=== PATIENT | male | born 1955 | race Native Hawaiian/Other Pacific Islander ===

== ENCOUNTER 2016-05-18 15:57 | Inpatient (IN) | payer OTHER, MEDICARE ==
[2016-05-18] VITALS (7 sets, daily range): BP systolic 117–150; BP diastolic 68–85; PULSE 56–65; RESP 16–18; TEMP 97.8–98.4; O2SAT 97–100
[~2016-05-18] VITALS: Ht 172.7 cm; Wt 91.2 kg
[~2016-05-18 15:57] MED LIST: ATOR80TA PO; CELE200C PO; CLOP75TA PO; CYCL-36 PO; DICL1GEL TOP; DULO30 PO; ENAL5TAB PO; FINA5TAB77 PO; HYDR-3533 PO; ISOS30 PO; METO25 PO; NITR.4 SL; TAMS0.4C67 PO; ZOLP1TAB32 PO
[2016-05-18] MEDS ORDERED: SODIUM CHLORIDE 0.9% FLUSH 5 ML FLUSH IVF PRN (16:30)
[2016-05-18] MEDS ORDERED: MORPHINE SULFATE 4 MG/ML INJ IV ONE (16:30)
[2016-05-18] MEDS ORDERED: FINA5TAB2 PO (16:38)
[2016-05-18] MEDS ORDERED: CLOP75TA PO (16:38)
[2016-05-18] MEDS ORDERED: ISOS30TA3 PO (16:38)
[2016-05-18] MEDS ORDERED: ATOR1TAB18 PO (16:38)
[2016-05-18] MEDS ORDERED: ASPI1TAB91 PO (16:38)
[2016-05-18] MEDS ORDERED: METO25TA3 PO (16:38)
[2016-05-18] MEDS ORDERED: CYCL1TAB29 PO (16:38)
[2016-05-18] MEDS ORDERED: STRA80CA PO (16:38)
[2016-05-18] MEDS ORDERED: TAMO10TA6 PO (16:38)
[2016-05-18] MEDS ORDERED: ENAL5TAB PO (16:38)
[2016-05-18] MEDS ORDERED: DULO1CAP2 PO (16:38)
[2016-05-18] MEDS ORDERED: TAMS0.4C4 PO (16:38)
[2016-05-18 17:01] LABS: AUTOMATED NEUTROPHIL # 9.6 TH/MM3 (1.8-7.7); BASOPHIL % 0.4 % (0.0-2.0); EOSINOPHIL # 0.1 TH/MM3 (0-0.4); EOSINOPHIL % 0.9 % (0.0-4.0); HEMATOCRIT 39.5 % (39.0-51.0); HEMO FLAGS DIFF FINAL; LYMPH % 12.7 % (9.0-44.0); LYMPHOCYTE # 1.5 TH/MM3 (1.0-4.8); MEAN CELL VOLUME 82.1 FL (80.0-100.0); MEAN CORPUSCULAR HEMOGLOBIN 26.2 PG (27.0-34.0); MONO % 5.6 % (0.0-8.0); NEUT % 80.4 % (16.0-70.0); PLATELET COUNT 179 TH/MM3 (150-450); RED BLOOD COUNT 4.82 MIL/MM3 (4.50-5.90); RED CELL DISTRIBUTION WIDTH 14.6 % (11.6-17.2)
--- NOTE | 2016-05-18 17:10 | RADRPT ---
EXAM DATE/TIME: 05/18/2016 16:50 [facility] COMPARISON: No previous studies available for comparison. INDICATIONS : Chest pain after fall off of a ladder. MEDICAL HISTORY : None. SURGICAL HISTORY : None. ENCOUNTER: Initial ACUITY: 1 day PAIN SCORE: 7/10 LOCATION: Bilateral chest FINDINGS: A single view of the chest demonstrates the lungs to be symmetrically aerated without evidence of mas s, infiltrate or effusion. The cardiomediastinal contours are unremarkable. Osseous structures are intact. CONCLUSION: No acute disease. Maurice Walker MD on May 18, 2016 at 17:08 Board Certified Radiologist. This report was verified electronically.
--- NOTE | 2016-05-18 17:11 | RADRPT ---
EXAM DATE/TIME: 05/18/2016 16:47 [facility] COMPARISON: No previous studies available for comparison. INDICATIONS : Pelvic pain after fall off of a ladder. MEDICAL HISTORY : None. SURGICAL HISTORY : None. ENCOUNTER: Initial ACUITY: 1 day PAIN SCORE: 8/10 LOCATION: Bilateral pelvis FINDINGS: A single frontal view of the pelvis demonstrates no evidence of fracture. The bony pelvic ring is in tact. Bony mineralization is normal. The soft tissues are intact. CONCLUSION: Unremarkable examination of the pelvis. Maurice Walker MD on May 18, 2016 at 17:09 Board Certified Radiologist. This report was verified electronically.
--- NOTE | 2016-05-18 17:12 | RADRPT ---
EXAM DATE/TIME: 05/18/2016 16:41 [facility] COMPARISON: No previous studies available for comparison. INDICATIONS : Right hand pain after fall off of a ladder. MEDICAL HISTORY : None. SURGICAL HISTORY : None. ENCOUNTER: Initial ACUITY: 1 day PAIN SCORE: 7/10 LOCATION: Right hand FINDINGS: There is no evidence of fracture or dislocation. Mineralization is normal. Mild arthritic changes pre sent. CONCLUSION: No acute bony injury Maurice Walker MD on May 18, 2016 at 17:09 Board Certified Radiologist. This report was verified electronically.
--- NOTE | 2016-05-18 17:13 | RADRPT ---
EXAM DATE/TIME: 05/18/2016 16:48 [facility] COMPARISON: No previous studies available for comparison. INDICATIONS : Left knee pain after fall off of a ladder. MEDICAL HISTORY : None. SURGICAL HISTORY : None. ENCOUNTER: Initial ACUITY: 1 day PAIN SCORE: 7/10 LOCATION: Left knee FINDINGS: Four view examination of the left knee demonstrates no evidence of fracture or dislocation. Bony min eralization is normal. The articular surfaces are intact. The suprapatellar soft tissues have a nor mal configuration. CONCLUSION: Unremarkable examination of the left knee. Maurice Walker MD on May 18, 2016 at 17:11 Board Certified Radiologist. This report was verified electronically.
--- NOTE | 2016-05-18 17:14 | RADRPT ---
EXAM DATE/TIME: 05/18/2016 16:50 [facility] COMPARISON: No previous studies available for comparison. INDICATIONS : Right clavicle pain after fall off of a ladder. MEDICAL HISTORY : None. SURGICAL HISTORY : None. ENCOUNTER: Initial ACUITY: 1 day PAIN SCORE: 10/10 LOCATION: Right clavicle FINDINGS: There is a mildly displaced mid shaft right clavicle fracture. Mild degenerative arthritic change in the glenohumeral joint. The visualized adjacent ribs are intact. CONCLUSION: Mildly displaced right clavicle fracture Maurice Walker MD on May 18, 2016 at 17:12 Board Certified Radiologist. This report was verified electronically.
[2016-05-18 17:15] LABS: BICARBONATE 24.4 MEQ/L (21.0-32.0); POTASSIUM 4.6 MEQ/L (3.5-5.1)
[2016-05-18 17:18] LABS: APTT (PATIENT) 21.1 SEC (24.3-30.1); PROTHROMBIN TIME - PATIENT 10.5 SEC (9.8-11.6)
--- NOTE | 2016-05-18 17:20 | PD ---
HPI Chief Complaint: Fall Time Seen by Provider: 16:21 Travel History International Travel<30 days: No Contact w/Intl Traveler<30days: No Traveled to known affect area: No History of Present Illness HPI 61 y/o male presents after he fell off a ladder when a branch hit him in the chest. He is having pain to his right shoulder, low back and chest wall. He states he's not sure if he blacked out. He does take Plavix and aspirin. He states he's on this for a cardiac stent. Quality pain is sharp. Severity is severe. Pain is worse with movement. I gave him an order for 4 mg of morphine in the ambulance over the radio and he still has not had significant improvement in his pain. He denies other concurrent complaints. PFSH Past Medical History Arthritis: Yes (RHEUMATOID ARTHRITIS (ARMS)) Cardiac Catheterization: Yes (stents x2) Cardiovascular Problems: Yes High Cholesterol: Yes Diminished Hearing: No Hypertension: Yes Immunizations Current: Yes Myocardial Infarction: Yes Triglycerides - High: Yes Influenza Vaccination: No Social History Alcohol Use: No Tobacco Use: No Substance Use: No Allergies-Medications (Allergen,Severity, Reaction): Coded Allergies: No Known Allergies (Unverified , 05/18/16) Reported Meds & Prescriptions Reported Meds & Active Scripts Active Reported Flexeril (Cyclobenzaprine HCl) 10 Mg Tab 10 Mg PO TID Duloxetine DR (Duloxetine HCl) 30 Mg Capdr 30 Mg PO DAILY Aspirin Adult Low Strength (Aspirin) 81 Mg Tabdr 81 Mg PO DAILY Enalapril (Enalapril Maleate) 5 Mg Tab 5 Mg PO DAILY Isosorbide Mononitrate ER (Isosorbide Mononitrate) 30 Mg Rachel 30 Mg PO DAILY Clopidogrel (Clopidogrel Bisulfate) 75 Mg Tab 75 Mg PO DAILY Tamoxifen (Tamoxifen Citrate) 10 Mg Tab 10 Mg PO BID Atorvastatin (Atorvastatin Calcium) 80 Mg Tab 80 Mg PO HS Metoprolol Tartrate 25 Mg Tab 25 Mg PO BID Finasteride 5 Mg Tab 5 Mg PO DAILY Do not crush. Strattera (Atomoxetine) 80 Mg Cap 80 Mg PO DAILY Tamsulosin (Tamsulosin HCl) 0.4 Mg Cap 0.4 Mg PO HS Review of Systems Except as stated in HPI: all other systems reviewed are Neg Physical Exam Narrative General: 61 y/o patient in no apparent distress Skin: trauma noted to right lateral clavicle with swelling Eyes:pupils equal NECK: c-collar in place Cardiovascular: Regular rate and rhythm Respiratory: normal respiratory effort noted, clear to auscultation bilaterally Abdomen: soft, nontender, nondistended Back: No step-offs, midline spine nontender with logroll Extremities: no pain over main joints Neuro: awake, alert, sensation and motor grossly intact Data Data Last Documented VS Vital Signs Date Time Temp Pulse Resp B/P Pulse Ox O2 Delivery O2 Flow Rate FiO2 05/18/16 18:44 65 18 117/68 100 Room Air 05/18/16 16:23 97.8 Orders Basic Metabolic Panel (Bmp) (05/18/16 16:21) Complete Blood Count With Diff (05/18/16 16:21) Prothrombin Time / Inr (Pt) (05/18/16 16:21) Act Partial Throm Time (Ptt) (05/18/16 16:21) Type And Screen (05/18/16 16:21) Chest, Single Ap (05/18/16 16:21) Pelvis, Ap Only (Routine) (05/18/16 16:21) Ct Brain W/O Iv Contrast(Rout) (05/18/16 16:21) Ct Cerv Spine W/O Contrast (05/18/16 16:21) Ct Abd/Pel W Iv Contrast(Rout) (05/18/16 16:21) Ct Thorax/ Chest W Iv Contrast (05/18/16 16:21) Ct Thor Spine W/O Contrast (05/18/16 16:21) Ct Lumb Spine W/O Contrast (05/18/16 16:21) Iv Access Insert/Monitor (05/18/16 16:21) Ecg Monitoring (05/18/16 16:21) Oximetry (05/18/16 16:21) Morphine Inj (Morphine Inj) (05/18/16 16:30) Sodium Chloride 0.9% Flush (Ns Flush) (05/18/16 16:30) Clavicle (05/18/16 ) Hand, Complete ([id number]) (05/18/16 ) Knee, Complete (4vws) (05/18/16 ) Electrocardiogram (05/18/16 16:17) Morphine Inj (Morphine Inj) (05/18/16 17:45) Iohexol 350 Inj (Omnipaque 350 Inj) (05/18/16 18:31) Admit Order (Ed Use Only) (05/18/16 18:47) Labs Laboratory Tests Test 05/18/16 16:40 White Blood Count 12.0 TH/MM3 Red Blood Count 4.82 MIL/MM3 Hemoglobin 12.6 GM/DL Hematocrit 39.5 % Mean Corpuscular Volume 82.1 FL Mean Corpuscular Hemoglobin 26.2 PG Mean Corpuscular Hemoglobin 32.0 % Concent Red Cell Distribution Width 14.6 % Platelet Count 179 TH/MM3 Mean Platelet Volume 8.2 FL Neutrophils (%) (Auto) 80.4 % Lymphocytes (%) (Auto) 12.7 % Monocytes (%) (Auto) 5.6 % Eosinophils (%) (Auto) 0.9 % Basophils (%) (Auto) 0.4 % Neutrophils # (Auto) 9.6 TH/MM3 Lymphocytes # (Auto) 1.5 TH/MM3 Monocytes # (Auto) 0.7 TH/MM3 Eosinophils # (Auto) 0.1 TH/MM3 Basophils # (Auto) 0.0 TH/MM3 CBC Comment DIFF FINAL Differential Comment Prothrombin Time 10.5 SEC Prothromb Time International 1.0 RATIO Ratio Activated Partial 21.1 SEC Thromboplast Time Sodium Level 141 MEQ/L Potassium Level 4.6 MEQ/L Chloride Level 108 MEQ/L Carbon Dioxide Level 24.4 MEQ/L Anion Gap 9 MEQ/L Blood Urea Nitrogen 20 MG/DL Creatinine 0.96 MG/DL Estimat Glomerular Filtration 79 ML/MIN Rate Random Glucose 91 MG/DL Calcium Level 8.4 MG/DL Phosphorus Level 2.7 MG/DL Blood Type A POSITIVE Antibody Screen NEGATIVE Blood Bank Comment [facility] Medical Decision Making Medical Screen Exam Complete: Yes Emergency Medical Condition: Yes Interpretation(s) CBC & BMP Diagram 05/18/16 16:40 Last 24 hours Impressions Thoracic Spine CT 05/18/161620 Signed Impressions: Service Date/Time: Wednesday, May 18, 2016 18:16 - CONCLUSION: 1. No thoracic spine fracture. 2. There are scattered bilateral rib fractures. Ángel Bush MD Pelvis X-Ray 05/18/161620 Signed Impressions: Service Date/Time: Wednesday, May 18, 2016 16:47 - CONCLUSION: Unremarkable examination of the pelvis. Maurice Walker MD Lumbar Spine CT 05/18/161620 Signed Impressions: Service Date/Time: Wednesday, May 18, 2016 18:16 - CONCLUSION: 1. No compression fracture or subluxation. 2. Fractures of right L2 and L3 transverse processes and possibly L1 as well. Ángel Bush MD Head CT 05/18/161620 Signed Impressions: Service Date/Time: Wednesday, May 18, 2016 18:05 - CONCLUSION: Normal examination. Ángel Bush MD Chest X-Ray 05/18/161620 Signed Impressions: Service Date/Time: Wednesday, May 18, 2016 16:50 - CONCLUSION: No acute disease. Maurice Walker MD Chest CT 05/18/161620 Signed Impressions: Service Date/Time: Wednesday, May 18, 2016 18:16 - CONCLUSION: 1. Multiple rib fractures bilaterally more numerous on the right. 2. Right clavicle fracture. 3. No pneumo or hemothorax. Ángel Bush MD Cervical Spine CT 05/18/161620 Signed Impressions: Service Date/Time: Wednesday, May 18, 2016 18:05 - CONCLUSION: 1. No compression fracture or subluxation. 2. Fracture of the right first rib and second left rib Ángel Bush MD Abdomen/Pelvis CT 05/18/161620 Signed Impressions: Service Date/Time: Wednesday, May 18, 2016 18:16 - CONCLUSION: 1. No abdominal visceral injury. 2. Fractures of the right L2 and L3 transverse processes. Ángel Bush MD Knee X-Ray 05/18/16 0000 Signed Impressions: Service Date/Time: Wednesday, May 18, 2016 16:48 - CONCLUSION: Unremarkable examination of the left knee. Maurice Walker MD Hand X-Ray 05/18/16 0000 Signed Impressions: Service Date/Time: Wednesday, May 18, 2016 16:41 - CONCLUSION: No acute bony injury Maurice Walker MD Clavicle X-Ray 05/18/16 0000 Signed Impressions: Service Date/Time: Wednesday, May 18, 2016 16:50 - CONCLUSION: Mildly displaced right clavicle fracture Maurice Walker MD Differential Diagnosis Fracture, bleed, strain, pneumothorax Narrative Course Will check trauma imaging and dose with morphine and reevaluate Pain still uncontrolled will repeat morphine while awaiting CT Patient updated about multiple fractures and agrees to close admission in ICU Physician Communication Physician Communication dr villa agrees to icu admit Diagnosis Primary Impression: Closed rib fracture Qualified Code: S22.43XA - Closed fracture of multiple ribs of both sides, initial encounter Additional Impressions: Lumbar transverse process fracture Qualified Code: S32.008A - Lumbar transverse process fracture, closed, initial encounter Right clavicle fracture Qualified Code: S42.021A - Closed displaced fracture of shaft of right clavicle, initial encounter Admitting Information Admitting Physician Requests: Admit Doreen Gomez MD May 18, 2016 17:20
[2016-05-18] MEDS ORDERED: MORPHINE SULFATE 4 MG/ML INJ IV PUSH ONE (17:45)
--- NOTE | 2016-05-18 18:19 | RADRPT ---
EXAM DATE/TIME: 05/18/2016 18:05 [facility] COMPARISON: CT BRAIN W/O CONTRAST, December 31, 2014, 21:55. INDICATIONS : Trauma. Fall. RADIATION DOSE: 59.44 CTDIvol (mGy) MEDICAL HISTORY : Cardiovascular disease. SURGICAL HISTORY : None. ENCOUNTER: Initial ACUITY: 1 day PAIN SCALE: 10/10 LOCATION: cranial TECHNIQUE: Multiple contiguous axial images were obtained of the head. Using automated exposure control and adj ustment of the mA and/or kV according to patient size, radiation dose was kept as low as reasonably a chievable to obtain optimal diagnostic quality images. FINDINGS: CEREBRUM: The ventricles are normal for age. No evidence of midline shift, mass lesion, hemorrhage or acute in farction. No extra-axial fluid collections are seen. POSTERIOR FOSSA: The cerebellum and brainstem are intact. The 4th ventricle is midline. The cerebellopontine angle i s unremarkable. EXTRACRANIAL: The visualized portion of the orbits is intact. SKULL: The calvaria is intact. No evidence of skull fracture. CONCLUSION: Normal examination. Ángel Bush MD on May 18, 2016 at 18:16 Board Certified Radiologist. This report was verified electronically.
[2016-05-18] MEDS ORDERED: IOHEXOL 350 MG/ML 10 ML VIAL (for RAD DIAG) IV ONE (18:31)
--- NOTE | 2016-05-18 18:31 | RADRPT ---
EXAM DATE/TIME: 05/18/2016 18:05 [facility] COMPARISON: No previous studies available for comparison. INDICATIONS : Trauma. Fall. Neck pain. RADIATION DOSE: 26.83 CTDIvol (mGy) MEDICAL HISTORY : Cardiovascular disease. SURGICAL HISTORY : None. ENCOUNTER: Initial ACUITY: 1 day PAIN SCALE: 10/10 LOCATION: neck TECHNIQUE: Volumetric scanning of the cervical spine was performed. Multiplanar reconstructions in the sagittal, coronal and oblique axial planes were performed. Using automated exposure control and adjustment o f the mA and/or kV according to patient size, radiation dose was kept as low as reasonably achievable to obtain optimal diagnostic quality images. FINDINGS: VERTEBRAE: Normal vertebral body height. ALIGNMENT: No evidence of subluxation. Facets are well aligned. Fracture of the right first rib and second left rib. CONCLUSION: 1. No compression fracture or subluxation. 2. Fracture of the right first rib and second left rib Ángel Bush MD on May 18, 2016 at 18:26 Board Certified Radiologist. This report was verified electronically.
--- NOTE | 2016-05-18 18:36 | RADRPT ---
EXAM DATE/TIME: 05/18/2016 18:16 [facility] COMPARISON: No previous studies available for comparison. INDICATIONS : Trauma. Fall. IV CONTRAST: 100 cc Omnipaque 350 (iohexol) IV ; Cumulative dose for multiple exams. ORAL CONTRAST: No oral contrast ingested. RADIATION DOSE: 15.85 CTDIvol (mGy) ; Combined studies - Thorax/Abdomen/Pelvis MEDICAL HISTORY : Cardiovascular disease. SURGICAL HISTORY : None. ENCOUNTER: Initial ACUITY: 1 day PAIN SCALE: 10/10 LOCATION: Abdomen and pelvis. TECHNIQUE: Volumetric scanning of the abdomen and pelvis was performed. Using automated exposure control and ad justment of the mA and/or kV according to patient size, radiation dose was kept as low as reasonably achievable to obtain optimal diagnostic quality images. FINDINGS: LOWER LUNGS: The visualized lower lungs are clear. LIVER: Homogeneous density without lesion. There is no dilation of the biliary tree. No calcified gallston es. SPLEEN: Normal size without lesion. PANCREAS: Within normal limits. KIDNEYS: Normal in size and shape. There is no mass, stone or hydronephrosis. ADRENAL GLANDS: Within normal limits. VASCULAR: There is no aortic aneurysm. BOWEL/MESENTERY: The stomach, small bowel, and colon demonstrate no acute abnormality. There is no free intraperitone al air or fluid. ABDOMINAL WALL: Within normal limits. RETROPERITONEUM: There is no lymphadenopathy. BLADDER: No wall thickening or mass. REPRODUCTIVE: Within normal limits. INGUINAL: There is no lymphadenopathy or hernia. MUSCULOSKELETAL: Right L2 and L3 transverse process fractures.. CONCLUSION: 1. No abdominal visceral injury. 2. Fractures of the right L2 and L3 transverse processes. Ángel Bush MD on May 18, 2016 at 18:32 Board Certified Radiologist. This report was verified electronically.
--- NOTE | 2016-05-18 18:41 | RADRPT ---
EXAM DATE/TIME: 05/18/2016 18:16 [facility] COMPARISON: No previous studies available for comparison. INDICATIONS : Trauma. Fall. IV CONTRAST: 100 cc Omnipaque 350 (iohexol) IV ; Cumulative dose for multiple exams. RADIATION DOSE: 18.78 CTDIvol (mGy) ; Combined studies - Thorax/Abdomen/Pelvis MEDICAL HISTORY : Cardiovascular disease. SURGICAL HISTORY : None. ENCOUNTER: Initial ACUITY: 1 day PAIN SCALE: 10/10 LOCATION: chest. TECHNIQUE: Volumetric scanning of the chest was performed. Using automated exposure control and adjustment of t he mA and/or kV according to patient size, radiation dose was kept as low as reasonably achievable to obtain optimal diagnostic quality images. FINDINGS: LUNGS: There is no consolidation or pneumothorax. No concerning pulmonary nodule is visualized. Bibasilar a telectasis. PLEURA: There is no pleural thickening or pleural effusion. MEDIASTINUM: The heart and great vessels demonstrate no acute abnormality. There is no mediastinal or hilar lymph adenopathy. Extensive coronary artery calcifications. AXILLAE: Within normal limits. No lymphadenopathy. SKELETAL: Fractures of the 1, 3, 6 and 7 ribs on the right. Left second rib fracture. Right clavicle midshaft f racture. MISCELLANEOUS: The visualized upper abdominal organs demonstrate no acute abnormality. CONCLUSION: 1. Multiple rib fractures bilaterally more numerous on the right. 2. Right clavicle fracture. 3. No pneumo or hemothorax. Ángel Bush MD on May 18, 2016 at 18:35 Board Certified Radiologist. This report was verified electronically.
--- NOTE | 2016-05-18 18:54 | RADRPT ---
EXAM DATE/TIME: 05/18/2016 18:16 [facility] COMPARISON: No previous studies available for comparison. INDICATIONS : Trauma. Fall. RADIATION DOSE: ; Reconstructed from previous dataset MEDICAL HISTORY : Cardiovascular disease. SURGICAL HISTORY : None. ENCOUNTER: Initial ACUITY: 1 day PAIN SCALE: 10/10 LOCATION: Upper back. TECHNIQUE: Volumetric scanning of the thoracic spine was performed. Multiplanar reconstructions in the sagittal , coronal and oblique axial planes were performed. Using automated exposure control and adjustment o f the mA and/or kV according to patient size, radiation dose was kept as low as reasonably achievable to obtain optimal diagnostic quality images. FINDINGS: The vertebral bodies of the thoracic spine are in normal alignment without evidence of subluxation. There is some minimal scoliosis and degenerative changes. Vertebral body height is maintained. No thoracic spine fractures are seen. There are bilateral rib f ractures. CONCLUSION: 1. No thoracic spine fracture. 2. There are scattered bilateral rib fractures. Ángel Bush MD on May 18, 2016 at 18:50 Board Certified Radiologist. This report was verified electronically.
--- NOTE | 2016-05-18 19:03 | RADRPT ---
EXAM DATE/TIME: 05/18/2016 18:16 [facility] COMPARISON: No previous studies available for comparison. INDICATIONS : Trauma. Fall. RADIATION DOSE: ; Reconstructed from previous dataset MEDICAL HISTORY : Cardiovascular disease. SURGICAL HISTORY : None. ENCOUNTER: Initial ACUITY: 1 day PAIN SCALE: 10/10 LOCATION: Lower back. TECHNIQUE: Volumetric scanning of the lumbar spine was performed. Multiplanar reconstructions in the sagittal, coronal and oblique axial planes were performed. Using automated exposure control and adjustment of the mA and/or kV according to patient size, radiation dose was kept as low as reasonably achievable t o obtain optimal diagnostic quality images. FINDINGS: VERTEBRAE: Normal vertebral body height. ALIGNMENT: No evidence of subluxation. T12-L1: The thecal sac has a normal diameter. No evidence of disc bulge or protrusion. The neural foramina are patent bilaterally. L1-L2: The thecal sac has a normal diameter. No evidence of disc bulge or protrusion. The neural foramina are patent bilaterally. L2-L3: The thecal sac has a normal diameter. No evidence of disc bulge or protrusion. The neural foramina are patent bilaterally. L3-L4: The thecal sac has a normal diameter. No evidence of disc bulge or protrusion. The neural foramina are patent bilaterally. L4-L5: Mild broad-based disc bulge abuts the thecal sac. Mild facet arthropathy. No canal stenosis. The paty ral foramina are patent bilaterally. L5-S1: The thecal sac has a normal diameter. No evidence of disc bulge or protrusion. The neural foramina are patent bilaterally. CONCLUSION: 1. No compression fracture or subluxation. 2. Fractures of right L2 and L3 transverse processes and possibly L1 as well. Ángel Bush MD on May 18, 2016 at 18:59 Board Certified Radiologist. This report was verified electronically.
[2016-05-18] MEDS ORDERED: ONDANSETRON HCL 4 MG/2 ML VIAL IV PRN (19:30)
[2016-05-18] MEDS ORDERED: POTASSIUM CHLOR 40 MEQ PREMIX 100 ML IV PRN ×2 (19:30)
[2016-05-18] MEDS ORDERED: POTASSIUM PHOSPHATE INJ 30 MMOL in SODIUM CHLOR 0.9% 250 ML INJ 250 ML IV PRN (19:30)
[2016-05-18] MEDS ORDERED: MISCELLANEOUS NURSING INFORMATION XX SCH (19:30)
[2016-05-18] MEDS: LIDOCAINE HCL 5% PATCH TD SCH (19:30)
[2016-05-18] MEDS ORDERED: POTASSIUM CL 40 MEQ/30 ML LIQ UDC PO/TUBE PRN ×2 (19:30)
[2016-05-18] MEDS ORDERED: POTASSIUM PHOSPHATE MONOBASIC 500 MG TAB PO/TUBE PRN (19:30)
[2016-05-18] MEDS ORDERED: POTASSIUM PHOSPHATE MONOBASIC 500 MG TAB PO PRN (19:30)
[2016-05-18] MEDS ORDERED: SODIUM PHOSPHATE INJ 30 MMOL in SODIUM CHLOR 0.9% 250 ML INJ 240 ML IV PRN (19:30)
[2016-05-18] MEDS ORDERED: CHLORHEXIDINE GLUCONATE 2 % 1 PACK (2 CLOTHS) TOP PRN (19:30)
[2016-05-18] MEDS ORDERED: MAGNESIUM OXIDE 400 MG TAB PO PRN (19:30)
[2016-05-18] MEDS ORDERED: MAGNESIUM SULFATE INJ 2 GM in SODIUM CHLORIDE 0.9% INJ 96 ML IV PRN (19:30)
[2016-05-18] MEDS ORDERED: MAGNESIUM SULFATE INJ 4 GM in SODIUM CHLORIDE 0.9% INJ 92 ML IV PRN (19:30)
[2016-05-18] MEDS ORDERED: POTASSIUM CHLOR 20 MEQ PREMIX 100 ML IV PRN ×2 (19:30)
[2016-05-18] MEDS ORDERED: SODIUM CHLORIDE 0.9% FLUSH 5 ML FLUSH IV FLUSH PRN (19:30)
[2016-05-18] MEDS ORDERED: NALOXONE HCL 0.4 MG/ML AMP IV PRN (19:30)
[2016-05-18] MEDS: SODIUM CHLOR 0.9% 1000 ML INJ 1,000 ML IV SCH (20:30)
[2016-05-18] MEDS: HEPARIN SODIUM - SQ 10,000 UNITS/ML VIAL SQ SCH (20:31)
[2016-05-18] MEDS: DOCUSATE SODIUM 100 MG CAP PO SCH (20:31)
[2016-05-18] MEDS: CYCLOBENZAPRINE HCL 10 MG TAB PO SCH (20:31)
[2016-05-18] MEDS: REMOVE OLD PATCH T-DERMAL SCH (21:00)
--- NOTE | 2016-05-18 21:12 | HHI.HP ---
History of Present Illness Primary Care Physician Maurice Keita MD Admission Diagnosis rib fractures Diagnoses: History of Present Illness 61-year-old male who fell from a ladder-she was seen by the ER physician and a complete trauma workup was completed. Patient is neurologically intact hemodynamically stable oxygen saturations above 90 on room air. He complains of bilateral thoracic pain, right shoulder pain. Review of Systems Constitutional: DENIES: Diaphoretic episodes, Fatigue, Fever, Weight gain, Weight loss, Chills, Dizziness, Change in appetite, Night Sweats Endocrine: DENIES: Heat/cold intolerance, Polydipsia, Polyuria, Polyphagia Eyes: DENIES: Blurred vision, Diplopia, Eye inflammation, Eye pain, Vision loss , Photosensitivity, Double Vision Ears, nose, mouth, throat: DENIES: Tinnitus, Hearing loss, Vertigo, Nasal discharge, Oral lesions, Throat pain, Hoarseness, Ear Pain, Running Nose, Epistaxis, Sinus Pain, Toothache, Odynophagia Respiratory: DENIES: Apneas, Cough, Snoring, Wheezing, Hemoptysis, Sputum production, Shortness of breath Cardiovascular: COMPLAINS OF: Chest pain, DENIES: Palpitations, Syncope, Dyspnea on Exertion, PND, Lower Extremity Edema, Orthopnea, Claudication Gastrointestinal: DENIES: Abdominal pain, Black stools, Bloody stools, Constipation, Diarrhea, Nausea, Vomiting, Difficulty Swallowing, Anorexia Genitourinary: DENIES: Sexual dysfunction, Urinary frequency, Urinary incontinence, Urgency, Hematuria, Dysuria, Nocturia, Penile Discharge, Testicular Pain, Testicular Swelling Musculoskeletal: DENIES: Joint pain, Muscle aches, Stiffness, Joint Swelling, Back pain, Neck pain Integumentary: DENIES: Abnormal pigmentation, Nail changes, Pruritus, Rash Hematologic/lymphatic: DENIES: Bruising, Lymphadenopathy Immunologic/allergic: DENIES: Eczema, Urticaria Neurologic: DENIES: Abnormal gait, Headache, Localized weakness, Paresthesias, Seizures, Speech Problems, Tremor, Poor Balance Psychiatric: DENIES: Anxiety, Confusion, Mood changes, Depression, Hallucinations, Agitation, Suicidal Ideation, Homicidal Ideation, Delusions Past Family Social History Allergies: Coded Allergies: No Known Allergies (Unverified , 05/18/16) Past Medical History CAD Past Surgical History Cardiac stenting Reported Medications Aspirin Plavix Active Ordered Medications Morphine, Toradol Family History none Social History No EtOH smoking or drug abuse Physical Exam Vital Signs Vital Signs Date Time Temp Pulse Resp B/P Pulse Ox O2 Delivery O2 Flow Rate FiO2 05/18/16 20:52 97 21 05/18/16 19:16 60 18 134/74 98 Room Air 05/18/16 18:44 65 18 117/68 100 Room Air 05/18/16 17:10 56 16 150/85 100 Room Air 05/18/16 16:23 97.8 57 16 135/79 100 Physical Exam GENERAL: This is a well-nourished, well-developed patient, in no apparent distress. SKIN: No rashes, ecchymoses or lesions. Cool and dry. HEAD: Atraumatic. Normocephalic. No temporal or scalp tenderness. EYES: Pupils equal round and reactive. Extraocular motions intact. No scleral icterus. No injection or drainage. ENT: Nose without bleeding, purulent drainage or septal hematoma. Throat without erythema, tonsillar hypertrophy or exudate. Uvula midline. Airway patent. NECK: Trachea midline. No JVD or lymphadenopathy. Supple, nontender, no meningeal signs. CARDIOVASCULAR: Regular rate and rhythm without murmurs, gallops, or rubs. RESPIRATORY: Clear to auscultation. Breath sounds equal bilaterally. No wheezes , rales, or rhonchi. thoracic tenderness bilateral GASTROINTESTINAL: Abdomen soft, non-tender, nondistended. No hepato-splenomegaly , or palpable masses. No guarding. MUSCULOSKELETAL: Extremities without clubbing, cyanosis, or edema. No joint tenderness, effusion, or edema noted. No calf tenderness. Negative Homans sign bilaterally. NEUROLOGICAL: Awake and alert. Cranial nerves II through XII intact. Motor and sensory grossly within normal limits. Five out of 5 muscle strength in all muscle groups. Normal speech. Laboratory Laboratory Tests Test 05/18/16 16:40 White Blood Count 12.0 Red Blood Count 4.82 Hemoglobin 12.6 Hematocrit 39.5 Mean Corpuscular Volume 82.1 Mean Corpuscular Hemoglobin 26.2 Mean Corpuscular Hemoglobin 32.0 Concent Red Cell Distribution Width 14.6 Platelet Count 179 Mean Platelet Volume 8.2 Neutrophils (%) (Auto) 80.4 Lymphocytes (%) (Auto) 12.7 Monocytes (%) (Auto) 5.6 Eosinophils (%) (Auto) 0.9 Basophils (%) (Auto) 0.4 Neutrophils # (Auto) 9.6 Lymphocytes # (Auto) 1.5 Monocytes # (Auto) 0.7 Eosinophils # (Auto) 0.1 Basophils # (Auto) 0.0 CBC Comment DIFF FINAL Differential Comment Prothrombin Time 10.5 Prothromb Time International 1.0 Ratio Activated Partial 21.1 Thromboplast Time Sodium Level 141 Potassium Level 4.6 Chloride Level 108 Carbon Dioxide Level 24.4 Anion Gap 9 Blood Urea Nitrogen 20 Creatinine 0.96 Estimat Glomerular Filtration 79 Rate Random Glucose 91 Calcium Level 8.4 Phosphorus Level 2.7 Blood Type A POSITIVE Antibody Screen NEGATIVE Blood Bank Comment Result Diagram: 05/18/16 1640 05/18/[address] of the head negative CT of the C-spine negative Chest abdomen and pelvis-clavicle fracture right, left second, right 1 ,rib fractures Assessment processes fractures L2-L3 Admit patient to the ICU paincontrol with C[employer] NSAIDs, muscle relaxant IS Liquid diet ortho surgery consult Amanda Starr MD May 18, 2016 21:11
[2016-05-18] MEDS: SODIUM CHLORIDE 0.9% FLUSH 5 ML FLUSH IV FLUSH SCH (21:33)
[2016-05-18] MEDS: KETOROLAC TROMETHAMINE 30 MG/ML (IVP) VIAL IV PUSH SCH (21:34)
[2016-05-18] MEDS: PCA - TOTAL MG MORPHINE DELIVERED PER SHIFT SCH (22:00)
[2016-05-18] MEDS: RESP: ALBUTEROL 2.5 MG/3 ML NEB (SCH) INH (22:12)
[2016-05-18] MEDS: MORPHINE SULFATE 30 MG/30 ML PCA IV SCH (22:27)
[2016-05-18] MEDS ORDERED: PILL SPLITTER OTHER PRN (22:45)
[2016-05-19] VITALS (13 sets, daily range): BP systolic 113–169; BP diastolic 60–73; PULSE 54–69; RESP 16–20; TEMP 98–99.2; O2SAT 97–100
[2016-05-19] MEDS: CHLORHEXIDINE GLUCONATE 2 % 1 PACK (2 CLOTHS) TOP SCH (02:31)
[2016-05-19] MEDS: KETOROLAC TROMETHAMINE 30 MG/ML (IVP) VIAL IV PUSH SCH ×4 (02:35→20:13)
[2016-05-19] MEDS: RESP: ALBUTEROL 2.5 MG/3 ML NEB (SCH) INH ×4 (04:00→22:18)
--- NOTE | 2016-05-19 04:54 | RADRPT ---
EXAM DATE/TIME: 05/19/2016 03:19 [facility] COMPARISON: CHEST SINGLE AP, May 18, 2016, 16:50. INDICATIONS : Shortness of breath, possible pulmonary disease. MEDICAL HISTORY : None. SURGICAL HISTORY : None. ENCOUNTER: Subsequent ACUITY: 2 days PAIN SCORE: 10/10 LOCATION: Right chest FINDINGS: A single view of the chest demonstrates the lungs to be symmetrically aerated without evidence of mas s, infiltrate or effusion. The cardiomediastinal contours are unremarkable. Right clavicle fracture. Minimal right-sided rib fractures. No pneumothorax. CONCLUSION: 1. Right-sided rib fractures right clavicle fracture. 2. Lungs are clear. Ángel Bush MD on May 19, 2016 at 4:51 Board Certified Radiologist. This report was verified electronically.
[2016-05-19] MEDS: PCA - TOTAL MG MORPHINE DELIVERED PER SHIFT SCH ×3 (05:06→22:00)
[2016-05-19] MEDS: HEPARIN SODIUM - SQ 10,000 UNITS/ML VIAL SQ SCH ×3 (05:12→21:12)
[2016-05-19] MEDS: CYCLOBENZAPRINE HCL 10 MG TAB PO SCH ×3 (05:12→21:13)
[2016-05-19] MEDS: SODIUM CHLOR 0.9% 1000 ML INJ 1,000 ML IV SCH (05:12)
[2016-05-19] MEDS: ISOSORBIDE MONONITRATE 30 MG TAB PO SCH (05:12)
[2016-05-19 05:58] LABS: BASOPHIL % 0.2 % (0.0-2.0); EOSINOPHIL # 0.1 TH/MM3 (0-0.4); EOSINOPHIL % 0.8 % (0.0-4.0); HEMATOCRIT 36.1 % (39.0-51.0); HEMO FLAGS DIFF FINAL; LYMPH % 16.1 % (9.0-44.0); LYMPHOCYTE # 1.3 TH/MM3 (1.0-4.8); MEAN CELL VOLUME 81.3 FL (80.0-100.0); MEAN CORPUSCULAR HEMOGLOBIN 26.5 PG (27.0-34.0); MEAN CORPUSCULAR HGB CONC 32.6 % (32.0-36.0); MONO % 6.2 % (0.0-8.0); NEUT % 76.7 % (16.0-70.0); PLATELET COUNT 167 TH/MM3 (150-450); RED BLOOD COUNT 4.44 MIL/MM3 (4.50-5.90); RED CELL DISTRIBUTION WIDTH 14.7 % (11.6-17.2); WHITE BLOOD COUNT 7.8 TH/MM3 (4.0-11.0)
[2016-05-19 06:12] LABS: BICARBONATE 28.2 MEQ/L (21.0-32.0); MAGNESIUM 2.1 MG/DL (1.5-2.5); POTASSIUM 4.1 MEQ/L (3.5-5.1)
[2016-05-19] MEDS: SODIUM CHLORIDE 0.9% FLUSH 5 ML FLUSH IV FLUSH SCH ×2 (10:01→20:13)
[2016-05-19] MEDS: ENALAPRIL MALEATE 5 MG TAB PO SCH (10:01)
[2016-05-19] MEDS: METOPROLOL TARTRATE 25 MG TAB PO SCH ×2 (10:01→20:14)
[2016-05-19] MEDS: MAGNESIUM HYDROXIDE SUSP 30 ML CUP PO SCH (10:02)
[2016-05-19] MEDS: DULoxetine HCl DR 30 MG CAP PO SCH (10:02)
[2016-05-19] MEDS: FAMOTIDINE 20 MG TAB PO SCH ×2 (10:02→20:14)
[2016-05-19] MEDS: DOCUSATE SODIUM 100 MG CAP PO SCH ×2 (10:02→20:14)
[2016-05-19] MEDS: FINASTERIDE 5 MG TAB PO SCH (10:04)
[2016-05-19] MEDS: LIDOCAINE HCL 5% PATCH TD SCH (10:05)
--- NOTE | 2016-05-19 10:24 | EKG ---
Date Performed: 05/18/2016 Time Performed: 16:17:20 PTAGE: 61 years EKG: SINUS BRADYCARDIA MARKED LEFT AXIS DEVIATION ABNORMAL ECG NO PREVIOUS TRACING DOCTOR: Phillip Schuler Interpretating Date/Time 05/19/2016 10:23:30
--- NOTE | 2016-05-19 10:59 | PD.CONS ---
HPI Service neurosurgery Consult Requested By Dr Starr Reason for Consult spinal fractures Primary Care Physician Maurice Keita MD History of Present Illness This is a 61-year-old male who fell apparently from a ladder. He was evaluated by the ER physician and trauma workup was completed. No loss of consciousness. No seizure activity. No tonic-clonic movements. No incontinence of stool or urine. He was neurologically intact moving both upper and lower extremities without focal deficits. hemodynamically stable oxygen saturations above 90 on room air. He complains of bilateral thoracic pain, right shoulder pain. He had a mildly displaced clavicle fracture. Had multiple rib fractures . In addition there are fractures of right L2 and L3 transverse processes and possibly L1. Neurosurgical consultation was requested Review of Systems Constitutional: DENIES: Diaphoretic episodes, Fatigue, Fever, Weight gain, Weight loss, Chills, Dizziness, Change in appetite, Night Sweats Endocrine: DENIES: Heat/cold intolerance, Polydipsia, Polyuria, Polyphagia Eyes: DENIES: Blurred vision, Diplopia, Eye inflammation, Eye pain, Vision loss , Photosensitivity, Double Vision Ears, nose, mouth, throat: DENIES: Tinnitus, Hearing loss, Vertigo, Nasal discharge, Oral lesions, Throat pain, Hoarseness, Ear Pain, Running Nose, Epistaxis, Sinus Pain, Toothache, Odynophagia Respiratory: DENIES: Apneas, Cough, Snoring, Wheezing, Hemoptysis, Sputum production, Shortness of breath Cardiovascular: COMPLAINS OF: Chest pain, DENIES: Palpitations, Syncope, Dyspnea on Exertion, PND, Lower Extremity Edema, Orthopnea, Claudication Gastrointestinal: DENIES: Abdominal pain, Black stools, Bloody stools, Constipation, Diarrhea, Nausea, Vomiting, Difficulty Swallowing, Anorexia Genitourinary: DENIES: Sexual dysfunction, Urinary frequency, Urinary incontinence, Urgency, Hematuria, Dysuria, Nocturia, Penile Discharge, Testicular Pain, Testicular Swelling Musculoskeletal: DENIES: Joint pain, Muscle aches, Stiffness, Joint Swelling, Back pain, Neck pain Integumentary: DENIES: Abnormal pigmentation, Nail changes, Pruritus, Rash Hematologic/lymphatic: DENIES: Bruising, Lymphadenopathy Immunologic/allergic: DENIES: Eczema, Urticaria Neurologic: DENIES: Abnormal gait, Headache, Localized weakness, Paresthesias, Seizures, Speech Problems, Tremor, Poor Balance Psychiatric: DENIES: Anxiety, Confusion, Mood changes, Depression, Hallucinations, Agitation, Suicidal Ideation, Homicidal Ideation, Delusions Past Family Social History Allergies: Coded Allergies: No Known Allergies (Unverified , 05/18/16) Past Medical History CAD Past Surgical History Cardiac stenting Reported Medications Aspirin Plavix Active Ordered Medications Current Medications Morphine Sulfate (Morphine Inj) 4 mg ONCE ONCE IV Last administered on 16:36; Start 05/18/16 at 16:30; Stop 05/18/16 at 16:31; Status DC IV Flush (NS Flush) 2 ml UNSCH PRN IVF FLUSH AFTER USING IV ACCESS; Start 05/18 at 16:30; Stop 05/18/16 at 19:27; Status DC Morphine Sulfate (Morphine Inj) 4 mg ONCE ONCE IV PUSH Last administered on 18:24; Start 05/18/16 at 17:45; Stop 05/18/16 at 17:46; Status DC Iohexol 100 ml 100 ml STK-MED ONCE IV Last administered on 05/18/16 18:31; Start 05/18/16 at 18:31; Stop 05/18/16 at 18:32; Status DC Sodium Chloride (NS 1000 ml Inj) 1,000 ml @ 84 mls/hr [id number] IV Last administered on 05/19/16 05:12; Start 05/18/16 at 20:00 IV Flush (NS Flush) 2 ml UNSCH PRN IV FLUSH FLUSH AFTER USING IV ACCESS; Start 05/18/16 at 19:30 IV Flush (NS Flush) 2 ml BID IV FLUSH Last administered on 05/19/16 10:01; Start 05/18/16 at 21:00 Ondansetron HCl (Zofran Inj) 4 mg Q6H PRN IV NAUSEA OR VOMITING; Start at 19:30 Docusate Sodium (Colace) 100 mg BID PO Last administered on 05/19/16 10:02; Start 05/18/16 at 21:00 Albuterol Sulfate (Albuterol Neb) 2.5 mg Q6HR NEB INH Last administered on 22:12; Start 05/18/16 at 22:00 Heparin Sodium (Porcine) (Heparin Inj) 5,000 units Q8H SQ Last administered on 05/19/16 05:12; Start 05/18/16 at 22:00 Miscellaneous Information 1 [id number] ; Start 05/18/16 at 19:30 Chlorhexidine Gluconate (Chlorhexidine 2% Cloth) 3 pack Taper DAILY@04 TOP Last administered on 05/19/16t 02:31; Start 05/19/16 at 04:00; Stop 05/15/17 at 03:59 Chlorhexidine Gluconate 3 pack 3 pack UNSCH PRN TOP HYGIENIC CARE; Start at 19:30 Potassium Chloride 100 ml @ 50 mls/hr Q2H PRN IV For Potassium 2.8 - 3.2 mEq/L ; Start 05/18/16 at 19:30 Potassium Chloride (KCl 20 Meq Premix Inj) 100 ml @ 50 mls/hr Q2H PRN IV For Potassium 2.8 - 3.2 mEq/L; Start 05/18/16 at 19:30 Potassium Chloride 40 meq 40 meq UNSCH PRN PO/TUBE For Potassium 3.3 - 3.5 mEq/ L; Start 05/18/16 at 19:30 Potassium Chloride 100 ml @ 25 mls/hr UNSCH PRN IV For Potassium 3.3 - 3.5 mEq /L; Start 05/18/16 at 19:30 Potassium Chloride 100 ml @ 50 mls/hr Q2H PRN IV For Potassium 3.3 - 3.5 mEq/L ; Start 05/18/16 at 19:30 Magnesium Sulfate/ Sodium Chloride (Magnesium Sulfate Inj/NS Inj) 100 ml @ 50 mls/hr UNSCH PRN IV For Magnesium 0.9 - 1.1 mg/dL; Start 05/18/16 at 19:30 Magnesium Oxide 800 mg 800 mg UNSCH PRN PO For Magnesium 1.2 - 1.6 mg/dL; Start 05/18/16 at 19:30 Magnesium Sulfate/ Sodium Chloride (Magnesium Sulfate Inj/NS Inj) 100 ml @ 50 mls/hr UNSCH PRN IV For Magnesium 1.2 - 1.6 mg/dL; Start 05/18/16 at 19:30 Potassium Phosphate 2000 mg 2,000 mg Q4H PRN PO For Phosphorus < 2.5 mg/dL; Start 05/18/16 at 19:30 Sodium Phosphate/ Sodium Chloride (Sodium Phosphate Inj/NS 250 ml Inj) 250 ml @ 42 mls/hr UNSCH PRN IV For Phosphorus < 2.5 mg/dL; Start 05/18/16 at 19:30 Potassium Chloride (KCl 40 Meq/30 ml Liq) 40 meq UNSCH PRN PO/TUBE SEE LABEL COMMENTS; Start 05/18/16 at 19:30 Potassium Phosphate 2000 mg 2,000 mg UNSCH PRN PO/TUBE SEE LABEL COMMENTS; Start 05/18/16 at 19:30 Potassium Phosphate/Sodium Chloride (Potassium Phosphate Inj/NS 250 ml Inj) 260 ml @ 42 mls/hr UNSCH PRN IV SEE LABEL COMMENTS; Start 05/18/16 at 19:30 Cyclobenzaprine HCl (Flexeril) 5 mg Q8HR PO Last administered on 05/19/16 05: 12; Start 05/18/16 at 22:00; Stop 05/19/16 at 07:54; Status DC Lidocaine HCl (Lidoderm 5% Patch.12 Hr) 1 patch DAILY TD Last administered on 10:05; Start 05/18/16 at 19:30 Miscellaneous Information 1 HS T-DERMAL ; Start 05/18/16 at 21:00 Naloxone HCl (Narcan Inj) 0.4 mg UNSCH PRN IV RESPIRATORY RATE LESS THAN 10; Start 05/18/16 at 19:30 Morphine Sulfate (Morphine 1 Mg/ ml EXECUT[employer]OR [employer]URSING) 30 mg UNSCH IV Last administered on 22:27; Start 05/18/16 at 19:30 EXECUTIVE [employer]OR [employer]URSING Dosage Infused (Pha) 1 Q8HR .XX Last administered on 05/19/16 05:06; Start 05/18/16 at 22:00 Ketorolac Tromethamine (Toradol Inj) 15 mg Q6H IV PUSH Last administered on 10:04; Start 05/18/16 at 21:00; Stop 05/21/16 at 20:00 Metoprolol Tartrate (Lopressor) 25 mg Q12HR PO Last administered on 05/19/16 10:01; Start 05/19/16 at 09:00 Isosorbide Mononitrate (Imdur) 30 mg DAILY@07 PO Last administered on 05:12; Start 05/19/16 at 07:00 Miscellaneous (Pill Splitter) 1 ea UNSCH PRN OTHER SEE LABEL COMMENTS; Start at 22:45 Magnesium Hydroxide (Milk Of Aidan Libreezy) 30 ml DAILY PO Last administered on 05/19/16 10:02; Start 05/19/16 at 09:00 Famotidine (Pepcid) 20 mg BID PO Last administered on 05/19/16 10:02; Start at 09:00 Atorvastatin Calcium (Lipitor) 80 mg HS PO ; Start 05/19/16 at 21:00 Duloxetine HCl (Cymbalta Dr) 30 mg DAILY PO Last administered on 05/19/16 10: 02; Start 05/19/16 at 09:00 Enalapril Maleate (Vasotec) 5 mg DAILY PO Last administered on 05/19/16 10:01 ; Start 05/19/16 at 09:00 Finasteride (Proscar) 5 mg DAILY PO Last administered on 05/19/16 10:04; Start 05/19/16 at 09:00 Tamsulosin HCl (Flomax) 0.4 mg HS PO ; Start 05/19/16 at 21:00 Cyclobenzaprine HCl (Flexeril) 10 mg Q8HR PO ; Start 05/19/16 at 14:00 Family History Noncontributory Social History No EtOH smoking or drug abuse Physical Exam Vital Signs Vital Signs Date Time Temp Pulse Resp B/P Pulse Ox O2 Delivery O2 Flow Rate FiO2 05/19/16 06:00 54 05/19/16 05:06 18 05/19/16 04:00 56 05/19/16 04:00 98.2 56 18 128/60 98 05/19/16 02:00 66 05/19/16 00:00 65 05/19/16 00:00 98.0 60 18 121/63 99 05/18/16 22:27 16 05/18/16 22:05 98.4 60 16 139/78 100 05/18/16 21:43 100 Nasal Cannula 2 05/18/16 20:52 97 21 05/18/16 19:16 60 18 134/74 98 Room Air 05/18/16 18:44 65 18 117/68 100 Room Air 05/18/16 17:10 56 16 150/85 100 Room Air 05/18/16 16:23 97.8 57 16 135/79 100 Laboratory Laboratory Tests Test 05/18/16 05/18/16 05/19/16 16:40 21:45 04:45 White Blood Count 12.0 7.8 Red Blood Count 4.82 4.44 Hemoglobin 12.6 11.8 Hematocrit 39.5 36.1 Mean Corpuscular Volume 82.1 81.3 Mean Corpuscular Hemoglobin 26.2 26.5 Mean Corpuscular Hemoglobin 32.0 32.6 Concent Red Cell Distribution Width 14.6 14.7 Platelet Count 179 167 Mean Platelet Volume 8.2 8.3 Neutrophils (%) (Auto) 80.4 76.7 Lymphocytes (%) (Auto) 12.7 16.1 Monocytes (%) (Auto) 5.6 6.2 Eosinophils (%) (Auto) 0.9 0.8 Basophils (%) (Auto) 0.4 0.2 Neutrophils # (Auto) 9.6 6.0 Lymphocytes # (Auto) 1.5 1.3 Monocytes # (Auto) 0.7 0.5 Eosinophils # (Auto) 0.1 0.1 Basophils # (Auto) 0.0 0.0 CBC Comment DIFF FINAL DIFF FINAL Differential Comment Prothrombin Time 10.5 Prothromb Time International 1.0 Ratio Activated Partial 21.1 Thromboplast Time Sodium Level 141 141 Potassium Level 4.6 4.1 Chloride Level 108 108 Carbon Dioxide Level 24.4 28.2 Anion Gap 9 5 Blood Urea Nitrogen 20 16 Creatinine 0.96 0.88 Estimat Glomerular Filtration 79 88 Rate Random Glucose 91 150 Calcium Level 8.4 8.0 Phosphorus Level 2.7 2.9 Blood Type A POSITIVE Antibody Screen NEGATIVE Blood Bank Comment Nasal Screen MRSA (PCR) NEGATIVE Magnesium Level 2.1 Result Diagram: 05/19/16 0445 05/19/16 0445 Imaging Last Impressions Chest X-Ray 05/19/16 0000 Signed Impressions: Service Date/Time: May 03:19 - CONCLUSION: 1. Right-sided rib fractures right clavicle fracture. 2. Lungs are clear. Ángel Bush MD Thoracic Spine CT 1/11/17 1621 Signed Impressions: Service Date/Time: Wednesday, May 18, 2016 18:16 - CONCLUSION: 1. No thoracic spine fracture. 2. There are scattered bilateral rib fractures. Ángel Bush MD Pelvis X-Ray [id number]/18/[id number] Signed Impressions: Service Date/Time: Wednesday, May 18, 2016 16:47 - CONCLUSION: Unremarkable examination of the pelvis. Maurice Walker MD Lumbar Spine CT 05/18/[id number] Signed Impressions: Service Date/Time: Wednesday, May 18, 2016 18:16 - CONCLUSION: 1. No compression fracture or subluxation. 2. Fractures of right L2 and L3 transverse processes and possibly L1 as well. Ángel Bush MD Head CT [id number]/18/[id number] Signed Impressions: Service Date/Time: Wednesday, May 18, 2016 18:05 - CONCLUSION: Normal examination. Ángel Bush MD Chest CT 05/18/[id number] Signed Impressions: Service Date/Time: Wednesday, May 18, 2016 18:16 - CONCLUSION: 1. Multiple rib fractures bilaterally more numerous on the right. 2. Right clavicle fracture. 3. No pneumo or hemothorax. Ángel Bush MD Cervical Spine CT 05/18/[id number] Signed Impressions: Service Date/Time: Wednesday, May 18, 2016 18:05 - CONCLUSION: 1. No compression fracture or subluxation. 2. Fracture of the right first rib and second left rib Ángel Bush MD Abdomen/Pelvis CT [id number]/18/[id number] Signed Impressions: Service Date/Time: Wednesday, May 18, 2016 18:16 - CONCLUSION: 1. No abdominal visceral injury. 2. Fractures of the right L2 and L3 transverse processes. Ángel Bush MD Knee X-Ray 05/18/16 0000 Signed Impressions: Service Date/Time: Wednesday, May 18, 2016 16:48 - CONCLUSION: Unremarkable examination of the left knee. Maurice Walker MD Hand X-Ray 05/18/16 0000 Signed Impressions: Service Date/Time: Wednesday, May 18, 2016 16:41 - CONCLUSION: No acute bony injury Maurice Walker MD Clavicle X-Ray 05/18/16 0000 Signed Impressions: Service Date/Time: Wednesday, May 18, 2016 16:50 - CONCLUSION: Mildly displaced right clavicle fracture Maurice Walker MD Assessment and Plan Assessment and Plan 61-year-old male status post fall clavicle fracture right, left second, right 1 ,rib fractures Transverse processes fractures L2-L3 Attending Statement Neuro. I have reviewed his clinical and radiological findings. Start neuro checks in a serial fashion. Respiratory. Aggressive pulmonary toilette, nasotracheal suction, and breathing treatments with nebulizers. Multiple transverse process fractures. Recommend nonoperative treatment. Pain controlled with analgesics Clavicle fracture ortho surgery consult Rib fractures. Morphine EXECUTIVE DIRECTOR OF NURSING pump for pain control PT and OT evaluation Nutrition. NPO Renal. monitor closely urine output, BUN and creatinine Endocrine. Monitor serial Acu checks and SSI as needed in detail ID monitor for signs of infection Protonix for stress ulcer prophylaxis Tung hosotto and SCD's for DVT prophylaxis Cuate Malone MD May 19, 2016 10:59
--- NOTE | 2016-05-19 13:42 | RADRPT ---
EXAM DATE/TIME: 05/19/2016 12:40 [facility] COMPARISON: CHEST SINGLE AP, May 19, 2016, 3:19. INDICATIONS: Pain right chest and shoulder MEDICAL HISTORY: Right clavicle fracture, rib fractures SURGICAL HISTORY: None. ENCOUNTER: Subsequent ACUITY: 2 days PAIN SCORE: 10/10 LOCATION: Bilateral chest FINDINGS: The heart is enlarged. The pulmonary vascular pattern is normal. Discoid atelectasis is noted within the left mid lung. No focal pneumonia is noted. Bilateral rib fractures are again noted. Right mid clavicular fracture is stable. No pneumothorax is noted. Degenerative changes and scoliosis of the thoracic spine are noted. CONCLUSION: 1. Cardiomegaly. 2. Discoid atelectasis within the left mid lung field. 3. Stable bilateral rib fractures and right mid clavicular fracture. 4. Degenerative changes and scoliosis of the thoracic spine. Asher Echavarria MD on May 19, 2016 at 13:27 Board Certified Radiologist. This report was verified electronically.
[2016-05-19] MEDS: MORPHINE SULFATE 30 MG/30 ML PCA IV SCH (14:22)
--- NOTE | 2016-05-19 15:33 | HHI.CCPN ---
Subjective Brief History 61 year old male that fell 10-12 feet off a ladder when a branch hit him in the chest. Initial complaints of right shoulder, low back and chest wall pain. Unknown LOC. He does take Plavix and aspirin for cardiac stents. 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 Cardiomegaly. 2. Discoid atelectasis within the left mid lung field. 3. Stable bilateral rib fractures and right mid clavicular fracture. 4. Degenerative changes and scoliosis of the thoracic spine. Asher Echavarria MD Chest X-Ray 05/19/16 0000 Signed Impressions: Service Date/Time: May 03:19 - CONCLUSION: 1. Right-sided rib fractures right clavicle fracture. 2. Lungs are clear. Ángel Bush MD Thoracic Spine CT 05/18/16 1621 Signed Impressions: Service Date/Time: Wednesday, May 18, 2016 18:16 - CONCLUSION: 1. No thoracic spine fracture. 2. There are scattered bilateral rib fractures. Ángel Bush MD Pelvis X-Ray 05/18/161 Signed Impressions: Service Date/Time: Wednesday, May 18, 2016 16:47 - CONCLUSION: Unremarkable examination of the pelvis. Maurice Walker MD Lumbar Spine CT 1/11/17 1621 Signed Impressions: Service Date/Time: Wednesday, May 18, 2016 18:16 - CONCLUSION: 1. No compression fracture or subluxation. 2. Fractures of right L2 and L3 transverse processes and possibly L1 as well. Ángel Bush MD Head CT 05/18/161620 Signed Impressions: Service Date/Time: Wednesday, May 18, 2016 18:05 - CONCLUSION: Normal examination. Ángel Bush MD Chest X-Ray 05/18/161620 Signed Impressions: Service Date/Time: Wednesday, May 18, 2016 16:50 - CONCLUSION: No acute disease. Maurice Walker MD Chest CT 05/18/161620 Signed Impressions: Service Date/Time: Wednesday, May 18, 2016 18:16 - CONCLUSION: 1. Multiple rib fractures bilaterally more numerous on the right. 2. Right clavicle fracture. 3. No pneumo or hemothorax. Ángel Bush MD Cervical Spine CT 05/18/161620 Signed Impressions: Service Date/Time: Wednesday, May 18, 2016 18:05 - CONCLUSION: 1. No compression fracture or subluxation. 2. Fracture of the right first rib and second left rib Ángel Bush MD Abdomen/Pelvis CT 05/18/161620 Signed Impressions: Service Date/Time: Wednesday, May 18, 2016 18:16 - CONCLUSION: 1. No abdominal visceral injury. 2. Fractures of the right L2 and L3 transverse processes. 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 SKIN: Warm and dry. HEAD: Normocephalic. EYES: PERRL. ENT: No nasal bleeding or discharge. Mucous membranes pink and moist. NECK: Trachea midline. No JVD. CARDIOVASCULAR: Regular rate and rhythm. RESPIRATORY: No accessory muscle use. Coarse breath sounds auscultated throughout lung alexander. GASTROINTESTINAL: Abdomen soft, non-tender, nondistended. + BS. MUSCULOSKELETAL: Extremities without cyanosis, or edema. No obvious deformities. NEUROLOGICAL: Awake and alert. Normal speech. 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 Neurosurgery following for transverse process fractures HOB elevated > 30 degrees CARDIOVASCULAR: HR = sinus rhythm. HR = 55-65 BPM. BP = MAP 80's IVF - NS @ 84mL/H, discontinued Follow CMP - Electrolyte protocol in place for replacement. RESPIRATORY: 5L NC Continue to monitor closely for hypoxemia. Pulmonary toilet - EZPAP, Acapella, IS Bronchodilators - Duonebs q2H PRN VAP protocol in place - 05/19: CXR- discoid atelectasis within the left midlung field Labs PRN Chest X-Ray PRN ABG PRN GASTROINTESTINAL: Diet -Regular, tolerating Bowel regimen - Colace and MOM. No BM yet. RENAL / URINARY: I&O + 330 BUN / creat - 16 / 0.88 Refuses Frances catheter placement ENDOCRINE: BGM - 150mg/dL HEMATOLOGY: H&H: 11.8 / 36.1 PLT 167 Hold Plavix and ASA On heparin SQ INFECTIOUS DISEASE: Follow CBC WBC - 7.8 Afebrile PROPHYLAXIS: GI -Pepcid PO DVT - Mechanical VTE with SCDs. Chemical management with Heparin SQ SKIN: Warm / Dry ACTIVITY: Status - OOB PT and OT evaluating. CASE MANAGEMENT: Consulted for assist with DC planning. Placement - disposition will depend on patient progress. Plan of care discussed with patient, son and RN at bedside. This patient is currently critically ill and being managed in the ICU. Trauma surgery team will round daily and evaluate patient and adjust the treatment plan. (Valerie Moon) Attestation Patient with clavicular fracture and multiple rib fractures bilateral as well as pulmonary contusion Doing actually well at this time and being transferred to the floor The exam, history, and the medical decision-making described in the above note were completed with the assistance of the mid-level provider. I reviewed and agree with the findings presented. I attest that I had a [id number] encounter with the patient on the same day, and personally performed and documented my assessment and findings in the medical record. Critical care time 35 minutes. (Mona Moore MD) Valerie Moon May 19, 2016 15:33 Mona Moore MD May 22, 2016 11:32
[2016-05-19] MEDS ORDERED: RESP: ALBUTEROL 2.5 MG/IPRATROPIUM 0.5 MG NEB (PRN) NEB (16:15)
--- NOTE | 2016-05-19 16:44 | PD.CONS ---
HPI Service Critical Care Medicine Consult Requested By Trauma Reason for Consult Medical Management Primary Care Physician Maurice Keita MD History of Present Illness 61-year-old male who fell from a ladder. Patient is neurologically intact hemodynamically stable oxygen saturations above 90 on room air. He complains of bilateral thoracic pain, right shoulder pain. Review of Systems Constitutional: DENIES: Diaphoretic episodes, Fatigue, Fever, Weight gain, Weight loss, Chills, Dizziness, Change in appetite, Night Sweats Endocrine: DENIES: Heat/cold intolerance, Polydipsia, Polyuria, Polyphagia Eyes: DENIES: Blurred vision, Diplopia, Eye inflammation, Eye pain, Vision loss , Photosensitivity, Double Vision Ears, nose, mouth, throat: DENIES: Tinnitus, Hearing loss, Vertigo, Nasal discharge, Oral lesions, Throat pain, Hoarseness, Ear Pain, Running Nose, Epistaxis, Sinus Pain, Toothache, Odynophagia Respiratory: DENIES: Apneas, Cough, Snoring, Wheezing, Hemoptysis, Sputum production, Shortness of breath Cardiovascular: COMPLAINS OF: Chest pain, DENIES: Palpitations, Syncope, Dyspnea on Exertion, PND, Lower Extremity Edema, Orthopnea, Claudication Gastrointestinal: DENIES: Abdominal pain, Black stools, Bloody stools, Constipation, Diarrhea, Nausea, Vomiting, Difficulty Swallowing, Anorexia Genitourinary: DENIES: Sexual dysfunction, Urinary frequency, Urinary incontinence, Urgency, Hematuria, Dysuria, Nocturia, Penile Discharge, Testicular Pain, Testicular Swelling Musculoskeletal: DENIES: Joint pain, Muscle aches, Stiffness, Joint Swelling, Back pain, Neck pain Integumentary: DENIES: Abnormal pigmentation, Nail changes, Pruritus, Rash Hematologic/lymphatic: DENIES: Bruising, Lymphadenopathy Immunologic/allergic: DENIES: Eczema, Urticaria Neurologic: DENIES: Abnormal gait, Headache, Localized weakness, Paresthesias, Seizures, Speech Problems, Tremor, Poor Balance Psychiatric: DENIES: Anxiety, Confusion, Mood changes, Depression, Hallucinations, Agitation, Suicidal Ideation, Homicidal Ideation, Delusions Past Family Social History Allergies: Coded Allergies: No Known Allergies (Unverified , 05/18/16) Past Medical History CAD Past Surgical History Coronary stenting Reported Medications Aspirin Plavix Active Ordered Medications Current Medications Medications (Trade) Dose Ordered Sig/Shoshana Route PRN Reason Start Time Stop Time Status Last Admin Dose Admin IV Flush (NS Flush) 2 ml UNSCH PRN IV FLUSH FLUSH AFTER USING IV ACCESS 05/18/16 19:30 IV Flush (NS Flush) 2 ml BID IV FLUSH 05/18/16 21:00 05/19/16 10:01 Ondansetron HCl (Zofran Inj) 4 mg Q6H PRN IV NAUSEA OR VOMITING 05/18/16 19:30 Docusate Sodium (Colace) 100 mg BID PO 05/18/16 21:00 05/19/16 10:02 Heparin Sodium (Porcine) (Heparin Inj) 5,000 units Q8H SQ 05/18/16 22:00 05/19/16 14:21 Miscellaneous Information 1 [id number] XX 05/18/16 19:30 Chlorhexidine Gluconate (Chlorhexidine 2% Cloth) 3 pack Taper DAILY@04 TOP 05/19/16 04:00 05/15/17 03:59 05/19/16 02:31 Chlorhexidine Gluconate 3 pack 3 pack UNSCH PRN TOP HYGIENIC CARE 05/18/16 19:30 Potassium Chloride 100 ml @ 50 mls/hr Q2H PRN IV For Potassium 2.8 - 3.2 mEq/L 05/18/16 19:30 Potassium Chloride (KCl 20 Meq Premix Inj) 100 ml @ 50 mls/hr Q2H PRN IV For Potassium 2.8 - 3.2 mEq/L 05/18/16 19:30 Potassium Chloride 40 meq 40 meq UNSCH PRN PO/TUBE For Potassium 3.3 - 3.5 mEq/L 05/18/16 19:30 Potassium Chloride 100 ml @ 25 mls/hr UNSCH PRN IV For Potassium 3.3 - 3.5 mEq/L 05/18/16 19:30 Potassium Chloride 100 ml @ 50 mls/hr Q2H PRN IV For Potassium 3.3 - 3.5 mEq/L 05/18/16 19:30 Magnesium Sulfate/ Sodium Chloride (Magnesium Sulfate Inj/NS Inj) 100 ml @ 50 mls/hr UNSCH PRN IV For Magnesium 0.9 - 1.1 mg/dL 05/18/16 19:30 Magnesium Oxide 800 mg 800 mg UNSCH PRN PO For Magnesium 1.2 - 1.6 mg/dL 05/18/16 19:30 Magnesium Sulfate/ Sodium Chloride (Magnesium Sulfate Inj/NS Inj) 100 ml @ 50 mls/hr UNSCH PRN IV For Magnesium 1.2 - 1.6 mg/dL 05/18/16 19:30 Potassium Phosphate 2000 mg 2,000 mg Q4H PRN PO For Phosphorus < 2.5 mg/dL 05/18/16 19:30 Sodium Phosphate/ Sodium Chloride (Sodium Phosphate Inj/NS 250 ml Inj) 250 ml @ 42 mls/hr UNSCH PRN IV For Phosphorus < 2.5 mg/dL 05/18/16 19:30 Potassium Chloride (KCl 40 Meq/30 ml Liq) 40 meq UNSCH PRN PO/TUBE SEE LABEL COMMENTS 05/18/16 19:30 Potassium Phosphate 2000 mg 2,000 mg UNSCH PRN PO/TUBE SEE LABEL COMMENTS 05/18/16 19:30 Potassium Phosphate/Sodium Chloride (Potassium Phosphate Inj/NS 250 ml Inj) 260 ml @ 42 mls/hr UNSCH PRN IV SEE LABEL COMMENTS 05/18/16 19:30 Lidocaine HCl (Lidoderm 5% Patch.12 Hr) 1 patch DAILY TD 05/18/16 19:30 05/19/16 10:05 Miscellaneous Information 1 HS T-DERMAL 05/18/16 21:00 Naloxone HCl (Narcan Inj) 0.4 mg UNSCH PRN IV RESPIRATORY RATE LESS THAN 10 05/18/16 19:30 Morphine Sulfate (Morphine 1 Mg/ ml SUPPLY TECH) 30 mg UNSCH IV 05/18/16 19:30 05/19/16 14:22 SUPPLY TECH Dosage Infused (Pha) 1 Q8HR .XX 05/18/16 22:00 05/19/16 14:00 Ketorolac Tromethamine (Toradol Inj) 15 mg Q6H IV PUSH 05/18/16 21:00 05/21/16 20:00 05/19/16 14:21 Metoprolol Tartrate (Lopressor) 25 mg Q12HR PO 05/19/16 09:00 05/19/16 10:01 Isosorbide Mononitrate (Imdur) 30 mg DAILY@07 PO 05/19/16 07:00 05/19/16 05:12 Miscellaneous (Pill Splitter) 1 ea UNSCH PRN OTHER SEE LABEL COMMENTS 05/18/16 22:45 Magnesium Hydroxide (Milk Of Magnesia Liq) 30 ml DAILY PO 05/19/16 09:00 05/19/16 10:02 Famotidine (Pepcid) 20 mg BID PO 05/19/16 09:00 05/19/16 10:02 Atorvastatin Calcium (Lipitor) 80 mg HS PO 05/19/16 21:00 Duloxetine HCl (Cymbalta Dr) 30 mg DAILY PO 05/19/16 09:00 05/19/16 10:02 Enalapril Maleate (Vasotec) 5 mg DAILY PO 05/19/16 09:00 05/19/16 10:01 Finasteride (Proscar) 5 mg DAILY PO 05/19/16 09:00 05/19/16 10:04 Tamsulosin HCl (Flomax) 0.4 mg HS PO 05/19/16 21:00 Cyclobenzaprine HCl (Flexeril) 10 mg Q8HR PO 05/19/16 14:00 05/19/16 14:20 Family History Noncontributory Social History Negative x 3 Physical Exam Vital Signs Vital Signs Date Time Temp Pulse Resp B/P Pulse Ox O2 Delivery O2 Flow Rate FiO2 05/19/16 16:00 99.1 55 18 132/65 100 05/19/16 15:51 99 Nasal Cannula 5.00 05/19/16 15:10 92 Nasal Cannula 5.00 05/19/16 14:36 14 05/19/16 14:22 21 05/19/16 14:00 21 05/19/16 14:00 54 05/19/16 12:00 61 05/19/16 12:00 99.2 61 20 121/73 97 05/19/16 10:00 69 05/19/16 08:00 98.5 57 16 113/69 100 05/19/16 08:00 57 05/19/16 06:00 54 05/19/16 05:06 18 05/19/16 04:00 56 05/19/16 04:00 98.2 56 18 128/60 98 05/19/16 02:00 66 05/19/16 00:00 65 05/19/16 00:00 98.0 60 18 121/63 99 05/18/16 22:27 16 05/18/16 22:05 98.4 60 16 139/78 100 05/18/16 21:43 100 Nasal Cannula 2 05/18/16 21:43 100 Nasal Cannula 2.00 05/18/16 20:52 05/18/16 19:16 60 18 134/74 98 Room Air 05/18/16 18:44 65 18 117/68 100 Room Air 05/18/16 17:10 56 16 150/85 100 Room Air Physical Exam GENERAL: Well-nourished, well-developed patient. SKIN: Warm and dry. HEAD: Normocephalic. EYES: No scleral icterus. No injection or drainage. NECK: Supple, trachea midline. No JVD or lymphadenopathy. CARDIOVASCULAR: Regular rate and rhythm without murmurs, gallops, or rubs. RESPIRATORY: Breath sounds equal bilaterally. No accessory muscle use. GASTROINTESTINAL: Abdomen soft, non-tender, nondistended. MUSCULOSKELETAL: No cyanosis, or edema. BACK: Nontender without obvious deformity. No CVA tenderness. Laboratory Laboratory Tests Test 05/18/16 05/18/16 05/19/16 16:40 21:45 04:45 White Blood Count 12.0 7.8 Red Blood Count 4.82 4.44 Hemoglobin 12.6 11.8 Hematocrit 39.5 36.1 Mean Corpuscular Volume 82.1 81.3 Mean Corpuscular Hemoglobin 26.2 26.5 Mean Corpuscular Hemoglobin 32.0 32.6 Concent Red Cell Distribution Width 14.6 14.7 Platelet Count 179 167 Mean Platelet Volume 8.2 8.3 Neutrophils (%) (Auto) 80.4 76.7 Lymphocytes (%) (Auto) 12.7 16.1 Monocytes (%) (Auto) 5.6 6.2 Eosinophils (%) (Auto) 0.9 0.8 Basophils (%) (Auto) 0.4 0.2 Neutrophils # (Auto) 9.6 6.0 Lymphocytes # (Auto) 1.5 1.3 Monocytes # (Auto) 0.7 0.5 Eosinophils # (Auto) 0.1 0.1 Basophils # (Auto) 0.0 0.0 CBC Comment DIFF FINAL DIFF FINAL Differential Comment Prothrombin Time 10.5 Prothromb Time International 1.0 Ratio Activated Partial 21.1 Thromboplast Time Sodium Level 141 141 Potassium Level 4.6 4.1 Chloride Level 108 108 Carbon Dioxide Level 24.4 28.2 Anion Gap 9 5 Blood Urea Nitrogen 20 16 Creatinine 0.96 0.88 Estimat Glomerular Filtration 79 88 Rate Random Glucose 91 150 Calcium Level 8.4 8.0 Phosphorus Level 2.7 2.9 Blood Type A POSITIVE Antibody Screen NEGATIVE Blood Bank Comment Nasal Screen MRSA (PCR) NEGATIVE Magnesium Level 2.1 Result Diagram: 05/19/1644405/19/16444 Imaging Last 24 hours Impressions Chest X-Ray 05/19/16 0000 Signed Impressions: Service Date/Time: May 12:40 - CONCLUSION: 1. Cardiomegaly. 2. Discoid atelectasis within the left mid lung field. 3. Stable bilateral rib fractures and right mid clavicular fracture. 4. Degenerative changes and scoliosis of the thoracic spine. Asher Echavarria MD Chest X-Ray 05/19/16 0000 Signed Impressions: Service Date/Time: May 03:19 - CONCLUSION: 1. Right-sided rib fractures right clavicle fracture. 2. Lungs are clear. Ángel Bush MD Septic Shock Reassessment Heart: Regular rate and rhythm Lungs: Clear Skin: Warm Peripheral Pulses: Bounding Right Radial Bounding Left Radial Assessment and Plan Assessment and Plan Neuro: - Multiple transverse process fractures - nonoperative management - Pain controlled with analgesics - neuro checks in a serial fashion. Respiratory: - Aggressive pulmonary toilette, - nasotracheal suction - Aerosols as needed Clavicle fracture - sling - ortho surgery consult Rib fractures. - nonoperative management - pain control Morphine SUPPLY TECH pump PT and OT evaluation Nutrition. - NPO Renal. - monitor closely urine output, - BUN and creatinine Endocrine. - SSI as needed in detail ID monitor for signs of infection Protonix for stress ulcer prophylaxis Tung ruddy and SCD's for DVT prophylaxis Level 2 Hiren Huang MD May 19, 2016 16:44
--- NOTE | 2016-05-19 16:53 | PD.CONS ---
HPI Service [facility] Hospitalists Consult Requested By Trauma surgery Reason for Consult Medical management Primary Care Physician Maurice Keita MD Diagnoses: History of Present Illness 63-year-old male was admitted to [facility] to the trauma service secondary to fall from a ladder diagnosed with multiple fractures including rib fractures, mildly displaced clavicle fracture, right L2 and L3 transverse processes + possible L1 fractures. Trauma workup completed and patient with no neurologic deficits and hemodynamically stable. Patient with a history of cardiac stents and currently complaining of bilateral thoracic pain, right shoulder pain. She denies any bladder or bowel dysfunction Review of Systems Other Other 12 systems reviewed and are negative except for the one mentioned in the history of present illness Past Family Social History Allergies: Coded Allergies: No Known Allergies (Unverified , 05/18/16) Past Medical History Heart disease CAD Past Surgical History Cardiac stents Family History Mother had history of hypertension Father had heart disease Social History Patient denies tobacco, alcohol or illicit drug intake Physical Exam Vital Signs Vital Signs Date Time Temp Pulse Resp B/P Pulse Ox O2 Delivery O2 Flow Rate FiO2 05/19/16 16:00 99.1 55 18 132/65 100 05/19/16 15:51 99 Nasal Cannula 5.00 05/19/16 15:10 92 Nasal Cannula 5.00 05/19/16 14:36 14 05/19/16 14:22 21 05/19/16 14:00 21 05/19/16 14:00 54 05/19/16 12:00 61 05/19/16 12:00 99.2 61 20 121/73 97 05/19/16 10:00 69 05/19/16 08:00 98.5 57 16 113/69 100 05/19/16 08:00 57 05/19/16 06:00 54 05/19/16 05:06 18 05/19/16 04:00 56 05/19/16 04:00 98.2 56 18 128/60 98 05/19/16 02:00 66 05/19/16 00:00 65 05/19/16 00:00 98.0 60 18 121/63 99 05/18/16 22:27 16 05/18/16 22:05 98.4 60 16 139/78 100 05/18/16 21:43 100 Nasal Cannula 2 05/18/16 21:43 100 Nasal Cannula 2.00 05/18/16 20:52 05/18/16 19:16 60 18 134/74 98 Room Air 05/18/16 18:44 65 18 117/68 100 Room Air 05/18/16 17:10 56 16 150/85 100 Room Air Physical Exam GENERAL: This is a well-nourished, well-developed patient, in no apparent distress. SKIN: No rashes, ecchymoses or lesions. Cool and dry. HEAD: Atraumatic. Normocephalic. No temporal or scalp tenderness. EYES: Pupils equal round and reactive. Extraocular motions intact. No scleral icterus. No injection or drainage. ENT: Nose without bleeding, purulent drainage or septal hematoma. Throat without erythema, tonsillar hypertrophy or exudate. Uvula midline. Airway patent. NECK: Trachea midline. No JVD or lymphadenopathy. Supple, nontender, no meningeal signs. CARDIOVASCULAR: Regular rate and rhythm without murmurs, gallops, or rubs. RESPIRATORY: Clear to auscultation. Breath sounds equal bilaterally. No wheezes , rales, or rhonchi. GASTROINTESTINAL: Abdomen soft, non-tender, nondistended. No hepato-splenomegaly , or palpable masses. No guarding. MUSCULOSKELETAL: Extremities without clubbing, cyanosis, or edema. No joint tenderness, effusion, or edema noted. No calf tenderness. Negative Homans sign bilaterally. NEUROLOGICAL: Awake and alert. Cranial nerves II through XII intact. Motor and sensory grossly within normal limits. Five out of 5 muscle strength in all muscle groups. Normal speech. Laboratory Laboratory Tests Test 05/18/16 05/19/16 21:45 04:45 Nasal Screen MRSA (PCR) NEGATIVE White Blood Count 7.8 Red Blood Count 4.44 Hemoglobin 11.8 Hematocrit 36.1 Mean Corpuscular Volume 81.3 Mean Corpuscular Hemoglobin 26.5 Mean Corpuscular Hemoglobin 32.6 Concent Red Cell Distribution Width 14.7 Platelet Count 167 Mean Platelet Volume 8.3 Neutrophils (%) (Auto) 76.7 Lymphocytes (%) (Auto) 16.1 Monocytes (%) (Auto) 6.2 Eosinophils (%) (Auto) 0.8 Basophils (%) (Auto) 0.2 Neutrophils # (Auto) 6.0 Lymphocytes # (Auto) 1.3 Monocytes # (Auto) 0.5 Eosinophils # (Auto) 0.1 Basophils # (Auto) 0.0 CBC Comment DIFF FINAL Differential Comment Sodium Level 141 Potassium Level 4.1 Chloride Level 108 Carbon Dioxide Level 28.2 Anion Gap 5 Blood Urea Nitrogen 16 Creatinine 0.88 Estimat Glomerular Filtration 88 Rate Random Glucose 150 Calcium Level 8.0 Phosphorus Level 2.9 Magnesium Level 2.1 Result Diagram: 05/19/16 0445 05/19/16 0445 Imaging Last Impressions Chest X-Ray 05/19/16 0000 Signed Impressions: Service Date/Time: May 12:40 - CONCLUSION: 1. Cardiomegaly. 2. Discoid atelectasis within the left mid lung field. 3. Stable bilateral rib fractures and right mid clavicular fracture. 4. Degenerative changes and scoliosis of the thoracic spine. Asher Echavarria MD Thoracic Spine CT 05/18/161620 Signed Impressions: Service Date/Time: Wednesday, May 18, 2016 18:16 - CONCLUSION: 1. No thoracic spine fracture. 2. There are scattered bilateral rib fractures. Ángel Bush MD Pelvis X-Ray 05/18/161620 Signed Impressions: Service Date/Time: Wednesday, May 18, 2016 16:47 - CONCLUSION: Unremarkable examination of the pelvis. Maurice Walker MD Lumbar Spine CT 05/18/161620 Signed Impressions: Service Date/Time: Wednesday, May 18, 2016 18:16 - CONCLUSION: 1. No compression fracture or subluxation. 2. Fractures of right L2 and L3 transverse processes and possibly L1 as well. Ángel Bush MD Head CT 05/18/161620 Signed Impressions: Service Date/Time: Wednesday, May 18, 2016 18:05 - CONCLUSION: Normal examination. Ángel Bush MD Chest CT 05/18/161620 Signed Impressions: Service Date/Time: Wednesday, May 18, 2016 18:16 - CONCLUSION: 1. Multiple rib fractures bilaterally more numerous on the right. 2. Right clavicle fracture. 3. No pneumo or hemothorax. Ángel Bush MD Cervical Spine CT 05/18/161620 Signed Impressions: Service Date/Time: Wednesday, May 18, 2016 18:05 - CONCLUSION: 1. No compression fracture or subluxation. 2. Fracture of the right first rib and second left rib Ángel Bush MD Abdomen/Pelvis CT 05/18/16 1621 Signed Impressions: Service Date/Time: Wednesday, May 18, 2016 18:16 - CONCLUSION: 1. No abdominal visceral injury. 2. Fractures of the right L2 and L3 transverse processes. Ángel Bush MD Knee X-Ray 05/18/16 0000 Signed Impressions: Service Date/Time: Wednesday, May 18, 2016 16:48 - CONCLUSION: Unremarkable examination of the left knee. Maurice Walker MD Hand X-Ray 05/18/16 0000 Signed Impressions: Service Date/Time: Wednesday, May 18, 2016 16:41 - CONCLUSION: No acute bony injury Maurice Walker MD Clavicle X-Ray 05/18/16 0000 Signed Impressions: Service Date/Time: Wednesday, May 18, 2016 16:50 - CONCLUSION: Mildly displaced right clavicle fracture Maurice Walker MD Assessment and Plan Assessment and Plan 61-year-old male with Trauma with multiple rib fracture, transverse processes fracture and mildly displaced clavicle fracture: Management per trauma surgery. Neurosurgery was consulted and advice on conservative nonoperative management for L2 to L3 and possible L1 transverse processes fractures. PT consult to treat and eval. Continue current pain management. Incentive spirometry at bedside. Clavicle fracture: Orthopedic surgery consulted and continue with sling to right upper extremity History of CAD, hyperlipidemia, hypertension, BPH: Continue with outpatient medications Hyperglycemia: check hemoglobin A1c and treat accordingly . Continue with sliding scale insulin DVT prophylaxis: BSD GERD: PPI Thank you for this consultation Code Status Full code Discussed Condition With Patient and son Ángel Carbajal MD May 19, 2016 16:53
[2016-05-19] MEDS: ATORVASTATIN 80 MG TAB PO SCH (20:13)
[2016-05-19] MEDS: REMOVE OLD PATCH T-DERMAL SCH (20:14)
[2016-05-19] MEDS: TAMSULOSIN HCL 0.4 MG CAP PO SCH (20:14)
[2016-05-20] VITALS (9 sets, daily range): BP systolic 112–158; BP diastolic 65–79; PULSE 55–67; RESP 18–28; TEMP 97.4–99.3; O2SAT 95–98
[2016-05-20] MEDS: KETOROLAC TROMETHAMINE 30 MG/ML (IVP) VIAL IV PUSH SCH ×4 (02:58→21:05)
[2016-05-20] MEDS: CHLORHEXIDINE GLUCONATE 2 % 1 PACK (2 CLOTHS) TOP SCH ×2 (04:00→23:18)
[2016-05-20] MEDS: RESP: ALBUTEROL 2.5 MG/3 ML NEB (SCH) INH ×3 (04:00→16:00)
[2016-05-20 04:37] LABS: AUTOMATED NEUTROPHIL # 4.3 TH/MM3 (1.8-7.7); BASOPHIL % 0.4 % (0.0-2.0); EOSINOPHIL # 0.3 TH/MM3 (0-0.4); EOSINOPHIL % 4.3 % (0.0-4.0); HEMATOCRIT 36.5 % (39.0-51.0); HEMO FLAGS DIFF FINAL; LYMPH % 23.1 % (9.0-44.0); LYMPHOCYTE # 1.5 TH/MM3 (1.0-4.8); MEAN CELL VOLUME 80.9 FL (80.0-100.0); MEAN CORPUSCULAR HEMOGLOBIN 26.1 PG (27.0-34.0); MEAN CORPUSCULAR HGB CONC 32.2 % (32.0-36.0); MONO % 7.8 % (0.0-8.0); NEUT % 64.4 % (16.0-70.0); PLATELET COUNT 153 TH/MM3 (150-450); RED CELL DISTRIBUTION WIDTH 14.4 % (11.6-17.2); WHITE BLOOD COUNT 6.7 TH/MM3 (4.0-11.0)
[2016-05-20 04:50] LABS: ALKALINE PHOSPHATASE 86 U/L (45-117); ALT (GPT) 24 U/L (12-78); ANION GAP 7 MEQ/L (5-15); AST (GOT) 17 U/L (15-37); BICARBONATE 27.6 MEQ/L (21.0-32.0); BLOOD UREA NITROGEN 13 MG/DL (7-18); CHLORIDE 106 MEQ/L (98-107); GLOMERULAR FILTRATION RATE 83 ML/MIN (>89); MAGNESIUM 2.1 MG/DL (1.5-2.5); POTASSIUM 4.2 MEQ/L (3.5-5.1); SODIUM (NA) 141 MEQ/L (136-145); TOTAL BILIRUBIN ADULT 0.3 MG/DL (0.2-1.0)
[2016-05-20] MEDS: CYCLOBENZAPRINE HCL 10 MG TAB PO SCH ×3 (05:51→21:04)
[2016-05-20] MEDS: HEPARIN SODIUM - SQ 10,000 UNITS/ML VIAL SQ SCH ×3 (05:52→21:05)
[2016-05-20] MEDS: ISOSORBIDE MONONITRATE 30 MG TAB PO SCH (05:52)
[2016-05-20] MEDS: PCA - TOTAL MG MORPHINE DELIVERED PER SHIFT SCH (06:00)
--- NOTE | 2016-05-20 07:30 | PD.ORT.PN ---
Subjective Subjective Remarks s/p fall from ladder of 10ft right shoulder pain. doing well. controlled Objective Vitals Vital Signs Date Time Temp Pulse Resp B/P Pulse Ox O2 Delivery O2 Flow Rate FiO2 05/20/16 06:00 20 05/20/16 06:00 55 05/20/16 06:00 18 05/20/16 04:00 67 05/20/16 04:00 99.3 67 24 138/65 98 05/20/16 03:58 20 05/20/16 02:00 61 05/20/16 00:00 98.4 58 20 158/74 98 05/20/16 00:00 58 05/19/16 22:19 100 Nasal Cannula 2.00 05/19/16 22:00 18 05/19/16 22:00 18 05/19/16 22:00 67 05/19/16 20:00 68 05/19/16 20:00 98.8 68 18 169/70 98 05/19/16 19:00 98 Nasal Cannula 3.00 05/19/16 16:00 99.1 55 18 132/65 100 05/19/16 15:51 99 Nasal Cannula 5.00 05/19/16 15:10 92 Nasal Cannula 5.00 05/19/16 14:36 14 05/19/16 14:22 21 05/19/16 14:00 21 05/19/16 14:00 54 05/19/16 12:00 61 05/19/16 12:00 99.2 61 20 121/73 97 05/19/16 10:00 69 05/19/16 08:00 98.5 57 16 113/69 100 05/19/16 08:00 57 I/O 05/19/16 05/19/16 05/19/16 05/20/16 05/20/16 05/20/16 07:00 15:00 23:00 07:00 15:00 23:00 Intake Total 440 ml 1500 ml 679 ml 409 ml Output Total 150 ml 400 ml 725 ml 700 ml Balance 290 ml 1100 ml -46 ml -291 ml Intake Oral 50 ml 700 ml 480 ml 240 ml IV Total 390 ml 800 ml 199 ml 169 ml Output Urine Total 150 ml 400 ml 725 ml 700 ml # Bowel Movements 0 0 0 0 Result Diagram: 05/20/1639905/20/16399 Objective Remarks RUE: tender to palpation over clavicle. pain with motion. NVI Assessment & Plan Assessment and Plan 1) Right Clavicle Fx - nonop -NWB -sling -nonop -ortho clear for discharge -f/u 2 wks jamie or lexa -consult dictated Jamel Bennett May 20, 2016 07:30
[2016-05-20] MEDS ORDERED: NORC5TAB PO (07:34)
[2016-05-20] MEDS: MAGNESIUM HYDROXIDE SUSP 30 ML CUP PO SCH (08:14)
[2016-05-20] MEDS: DULoxetine HCl DR 30 MG CAP PO SCH (08:14)
[2016-05-20] MEDS: ENALAPRIL MALEATE 5 MG TAB PO SCH (08:14)
[2016-05-20] MEDS: SODIUM CHLORIDE 0.9% FLUSH 5 ML FLUSH IV FLUSH SCH ×2 (08:14→21:05)
[2016-05-20] MEDS: DOCUSATE SODIUM 100 MG CAP PO SCH ×2 (08:14→21:04)
[2016-05-20] MEDS: FAMOTIDINE 20 MG TAB PO SCH ×2 (08:14→21:04)
[2016-05-20] MEDS: FINASTERIDE 5 MG TAB PO SCH (08:14)
[2016-05-20] MEDS: LIDOCAINE HCL 5% PATCH TD SCH (08:14)
[2016-05-20] MEDS: METOPROLOL TARTRATE 25 MG TAB PO SCH ×2 (08:14→21:04)
--- NOTE | 2016-05-20 08:47 | HHI.PR ---
Subjective Remarks Patient seen and examined Complains of back pain as well as right upper extremity Otherwise afebrile and denies any chest pain or shortness of breath Objective Vitals Vital Signs Date Time Temp Pulse Resp B/P Pulse Ox O2 Delivery O2 Flow Rate FiO2 05/20/16 06:00 20 05/20/16 06:00 55 05/20/16 06:00 18 05/20/16 04:00 67 05/20/16 04:00 99.3 67 24 138/65 98 05/20/16 03:58 20 05/20/16 02:00 61 05/20/16 00:00 98.4 58 20 158/74 98 05/20/16 00:00 58 05/19/16 22:19 100 Nasal Cannula 2.00 05/19/16 22:00 18 05/19/16 22:00 18 05/19/16 22:00 67 05/19/16 20:00 68 05/19/16 20:00 98.8 68 18 169/70 98 05/19/16 19:00 98 Nasal Cannula 3.00 05/19/16 16:00 99.1 55 18 132/65 100 05/19/16 15:51 99 Nasal Cannula 5.00 05/19/16 15:10 92 Nasal Cannula 5.00 05/19/16 14:36 14 05/19/16 14:22 21 05/19/16 14:00 21 05/19/16 14:00 54 05/19/16 12:00 61 05/19/16 12:00 99.2 61 20 121/73 97 05/19/16 10:00 69 I/O 05/19/16 05/19/16 05/19/16 05/20/16 05/20/16 05/20/16 07:00 15:00 23:00 07:00 15:00 23:00 Intake Total 440 ml 1500 ml 679 ml 409 ml Output Total 150 ml 400 ml 725 ml 700 ml Balance 290 ml 1100 ml -46 ml -291 ml Intake Oral 50 ml 700 ml 480 ml 240 ml IV Total 390 ml 800 ml 199 ml 169 ml Output Urine Total 150 ml 400 ml 725 ml 700 ml # Bowel Movements 0 0 0 0 Result Diagram: 05/20/16 0400 05/20/16 0400 Imaging Last Impressions Chest X-Ray 05/19/16 0000 Signed Impressions: Service Date/Time: May 12:40 - CONCLUSION: 1. Cardiomegaly. 2. Discoid atelectasis within the left mid lung field. 3. Stable bilateral rib fractures and right mid clavicular fracture. 4. Degenerative changes and scoliosis of the thoracic spine. Asher Echavarria MD Thoracic Spine CT 05/18/161620 Signed Impressions: Service Date/Time: Wednesday, May 18, 2016 18:16 - CONCLUSION: 1. No thoracic spine fracture. 2. There are scattered bilateral rib fractures. Ángel Bush MD Pelvis X-Ray 05/18/161620 Signed Impressions: Service Date/Time: Wednesday, May 18, 2016 16:47 - CONCLUSION: Unremarkable examination of the pelvis. Maurice Walker MD Lumbar Spine CT 05/18/161620 Signed Impressions: Service Date/Time: Wednesday, May 18, 2016 18:16 - CONCLUSION: 1. No compression fracture or subluxation. 2. Fractures of right L2 and L3 transverse processes and possibly L1 as well. Ángel Bush MD Head CT 05/18/161620 Signed Impressions: Service Date/Time: Wednesday, May 18, 2016 18:05 - CONCLUSION: Normal examination. Ángel Bush MD Chest CT 05/18/161620 Signed Impressions: Service Date/Time: Wednesday, May 18, 2016 18:16 - CONCLUSION: 1. Multiple rib fractures bilaterally more numerous on the right. 2. Right clavicle fracture. 3. No pneumo or hemothorax. Ángel Bush MD Cervical Spine CT 05/18/161620 Signed Impressions: Service Date/Time: Wednesday, May 18, 2016 18:05 - CONCLUSION: 1. No compression fracture or subluxation. 2. Fracture of the right first rib and second left rib Ángel Bush MD Abdomen/Pelvis CT 05/18/161620 Signed Impressions: Service Date/Time: Wednesday, May 18, 2016 18:16 - CONCLUSION: 1. No abdominal visceral injury. 2. Fractures of the right L2 and L3 transverse processes. Ángel Bush MD Knee X-Ray 05/18/16 0000 Signed Impressions: Service Date/Time: Wednesday, May 18, 2016 16:48 - CONCLUSION: Unremarkable examination of the left knee. Maurice Walker MD Hand X-Ray 05/18/16 0000 Signed Impressions: Service Date/Time: Wednesday, May 18, 2016 16:41 - CONCLUSION: No acute bony injury Maurice Walker MD Clavicle X-Ray 05/18/16 0000 Signed Impressions: Service Date/Time: Wednesday, May 18, 2016 16:50 - CONCLUSION: Mildly displaced right clavicle fracture Maurice Walker MD Objective Remarks GENERAL: NAD SKIN: Warm and dry. HEAD: Normocephalic. EYES: No scleral icterus. No injection or drainage. NECK: Supple, trachea midline. No JVD or lymphadenopathy. CARDIOVASCULAR: Regular rate and rhythm without murmurs, gallops, or rubs. RESPIRATORY: Breath sounds equal bilaterally. No accessory muscle use. GASTROINTESTINAL: Abdomen soft, non-tender, nondistended. MUSCULOSKELETAL: No cyanosis, or edema. Right arm in sling BACK: tender without obvious deformity. No CVA tenderness. A/P Assessment and Plan 61-year-old male with Trauma with multiple rib fracture, transverse processes fracture and mildly displaced clavicle fracture: Management per trauma surgery. Neurosurgery was consulted and advice on conservative nonoperative management for L2 to L3 and possible L1 transverse processes fractures. PT consult to treat and eval. Continue current pain management. Incentive spirometry at bedside. Clavicle fracture: Orthopedic surgery appreciated and advise on conservative management and continue with sling to right upper extremity History of CAD, hyperlipidemia, hypertension, BPH: Continue with outpatient medications Hyperglycemia: check hemoglobin A1c and treat accordingly . Continue with sliding scale insulin DVT prophylaxis: BSD GERD: PPI Ángel Carbajal MD May 20, 2016 08:47
[2016-05-20] MEDS ORDERED: oxyCODONE/ACETAMINOPHEN 5 MG/325 MG TAB PO PRN ×2 (10:30→11:30)
[2016-05-20] MEDS ORDERED: MORPHINE SULFATE 4 MG/ML INJ IV PRN (10:30)
[2016-05-20 10:49] LABS: HEMOGLOBIN A1a 1.5 %; HEMOGLOBIN A1b 1.6 %; HEMOGLOBIN Ao 84.3 %; HEMOGLOBIN P3 3.7 %
--- NOTE | 2016-05-20 10:54 | MB ---
cc: ORIN FLORES DATE OF CONSULTATION 05/20/2016 REASON FOR CONSULTATION Right clavicle fracture HISTORY Mr. Mcdonnell is a 61-year-old male who was on a ladder. He was trimming tree limbs. He cut a limb which subsequently then came down and hit his ladder causing the ladder to fall over. He landed on his right side. He had right shoulder and chest pain. He presented to the emergency room. He was found to have a right clavicle fracture, as well as multiple right-sided rib fractures. He is currently awake and alert in the Intensive Care Unit. Pain is worse with movement of the arm. His rib pain is worse with breathing or coughing. He denies dizziness, syncope or loss of consciousness. PAST MEDICAL HISTORY ALLERGIES NO KNOWN DRUG ALLERGIES. ILLNESSES Coronary artery disease SURGERIES Cardiac stenting MEDICATIONS 1. Plavix 2. Aspirin FAMILY HISTORY Noncontributory SOCIAL HISTORY The patient denies alcohol, tobacco or drug use. REVIEW OF SYSTEMS The patient denies headache, visual changes, neck pain, chest pain, shortness of breath, abdominal pain, nausea, vomiting or recent weight loss. He complains of right-sided rib pain and right shoulder pain. PHYSICAL EXAMINATION The patient is a well-developed, well-nourished 61-year male in no acute distress. He is awake and alert. He is alert and x3. VITAL SIGNS: Temperature 98.9, pulse 55, respirations 20, blood pressure 119/70, O2 sat 98% on room air. HEAD: The patient is normocephalic. Pupils are equal. NECK: Soft and nontender. Trachea is midline. CHEST: The patient is tender to palpation over the ribs on the right side. ABDOMEN: Soft, nontender, nondistended. EXTREMITIES: Examination of the right arm reveals tenderness on palpation of his clavicle. He has some pain with shoulder motion. He has no tenderness around his elbow, wrist or hand. Sensation is intact in all fingers. Radial artery is palpable. Sensation is intact in all fingers. Examination of the left arm reveals no obvious pain or deformity with shoulder, elbow or wrist motion. Skin is intact. Dorsalis pedis pulses palpable. Sensation is intact in radial, ulnar, and median nerve distributions. Railroad Track Inspector strength is +5. Examination of bilateral lower extremities reveals no pain with hip, knee or ankle motion. Skin is intact both feet. Dorsalis pedis pulses palpable. Sensation is intact in both feet. X-RAYS X-rays of the right shoulder were reviewed. The patient has a mildly displaced right clavicle fracture. ASSESSMENT 1. Right clavicle fracture. 2. Multiple right rib fractures. PLAN Treatment options were discussed with the patient. At this point, I would recommend nonoperative treatment. The risks of surgery were discussed in-depth with the patient. The patient is agreeable with nonoperative treatment. He will need use a sling. He should avoid using his right arm for any lifting. All questions were answered. He may follow up in the clinic in two weeks for reevaluation. A mid-level provider in my office, nurse practitioner or PA, may see this patient on a follow-up basis and continue to implement the objective of this plan including: Starting or adjusting medications, injections of muscle, tendon, bursa or joints, cast application, orthotic or brace application, physical therapy, further radiographic studies including x-ray, MRI, CT, ultrasounds or bone scan, vascular studies, neurologic studies, or other specialist consultations, and proceeding with surgical management as appropriate. MD YUNIOR Marsh/BARBER /10:34 AM /10:47 AM MTDEmerson
[2016-05-20] MEDS: MORPHINE SULFATE 4 MG/ML INJ IV PUSH PRN (15:33)
[2016-05-20] MEDS ORDERED: diphenhydrAMINE HCL 50 MG/ML VIAL IM PRN (16:00)
[2016-05-20] MEDS ORDERED: diphenhydrAMINE HCL 50 MG/ML VIAL IV PUSH PRN (16:00)
--- NOTE | 2016-05-20 16:17 | HHI.NSPN ---
(Shawna Whyte) Note Status Status: Progress Note (Shawna Whyte) Interval History Interval History This is a 61-year-old male who fell apparently from a ladder. He was evaluated by the ER physician and trauma workup was completed. No loss of consciousness. No seizure activity. No tonic-clonic movements. No incontinence of stool or urine. He was neurologically intact moving both upper and lower extremities without focal deficits. hemodynamically stable oxygen saturations above 90 on room air. He complains of bilateral thoracic pain, right shoulder pain. He had a mildly displaced clavicle fracture. Had multiple rib fractures . In addition there are fractures of right L2 and L3 transverse processes and possibly L1. 05/20/16: persistent moderate back, rib and clavicle pain. denies paresthesias, focal weakness in LEs. (Shawna Whyte) Labs, Micro, & Vital Signs Results Date Time Temp Pulse Resp B/P Pulse Ox O2 Delivery O2 Flow Rate FiO2 05/20/16 12:00 55 05/20/16 12:00 98.9 59 28 125/67 95 05/20/16 10:00 55 05/20/16 09:41 95 Room Air 05/20/16 08:00 98.9 58 20 119/70 95 05/20/16 08:00 98 Room Air 05/20/16 08:00 55 05/20/16 06:00 20 05/20/16 06:00 55 05/20/16 06:00 18 05/20/16 04:00 67 05/20/16 04:00 99.3 67 24 138/65 98 05/20/16 03:58 20 05/20/16 02:00 61 05/20/16 00:00 98.4 58 20 158/74 98 05/20/16 00:00 58 05/19/16 22:19 100 Nasal Cannula 2.00 05/19/16 22:00 18 05/19/16 22:00 18 05/19/16 22:00 67 05/19/16 20:00 68 05/19/16 20:00 98.8 68 18 169/70 98 05/19/16 19:00 98 Nasal Cannula 3.00 05/20/16 07:00 Intake Total 2588 ml Output Total 1825 ml Balance 763 ml Constitutional Vital Signs Date Time Temp Pulse Resp B/P Pulse Ox O2 Delivery O2 Flow Rate FiO2 05/20/16 12:00 55 05/20/16 12:00 98.9 59 28 125/67 95 05/20/16 10:00 55 05/20/16 09:41 95 Room Air 05/20/16 08:00 98.9 58 20 119/70 95 05/20/16 08:00 98 Room Air 05/20/16 08:00 55 05/20/16 06:00 20 05/20/16 06:00 55 05/20/16 06:00 18 05/20/16 04:00 67 05/20/16 04:00 99.3 67 24 138/65 98 05/20/16 03:58 20 05/20/16 02:00 61 05/20/16 00:00 98.4 58 20 158/74 98 05/20/16 00:00 58 05/19/16 22:19 100 Nasal Cannula 2.00 05/19/16 22:00 18 05/19/16 22:00 18 05/19/16 22:00 67 05/19/16 20:00 68 05/19/16 20:00 98.8 68 18 169/70 98 05/19/16 19:00 98 Nasal Cannula 3.00 05/20/16 07:00 Intake Total 2588 ml Output Total 1825 ml Balance 763 ml (Shawna Whyte) Review of Systems/Exam Exam (Shawna Whyte) Medications Current Medications Current Medications Medications (Trade) Dose Ordered Sig/Shoshana Route PRN Reason Start Time Stop Time Status Last Admin Dose Admin IV Flush (NS Flush) 2 ml UNSCH PRN IV FLUSH FLUSH AFTER USING IV ACCESS 05/18/16 19:30 IV Flush (NS Flush) 2 ml BID IV FLUSH 05/18/16 21:00 05/20/16 08:14 Ondansetron HCl (Zofran Inj) 4 mg Q6H PRN IV NAUSEA OR VOMITING 05/18/16 19:30 Docusate Sodium (Colace) 100 mg BID PO 05/18/16 21:00 05/20/16 08:14 Heparin Sodium (Porcine) (Heparin Inj) 5,000 units Q8H SQ 05/18/16 22:00 05/20/16 14:19 Miscellaneous Information 1 [id number] XX 05/18/16 19:30 Chlorhexidine Gluconate (Chlorhexidine 2% Cloth) 3 pack Taper DAILY@04 TOP 05/19/16 04:00 05/15/17 03:59 05/20/16 04:00 Chlorhexidine Gluconate 3 pack 3 pack UNSCH PRN TOP HYGIENIC CARE 05/18/16 19:30 Potassium Chloride 100 ml @ 50 mls/hr Q2H PRN IV For Potassium 2.8 - 3.2 mEq/L 05/18/16 19:30 Potassium Chloride (KCl 20 Meq Premix Inj) 100 ml @ 50 mls/hr Q2H PRN IV For Potassium 2.8 - 3.2 mEq/L 05/18/16 19:30 Potassium Chloride 40 meq 40 meq UNSCH PRN PO/TUBE For Potassium 3.3 - 3.5 mEq/L 05/18/16 19:30 Potassium Chloride 100 ml @ 25 mls/hr UNSCH PRN IV For Potassium 3.3 - 3.5 mEq/L 05/18/16 19:30 Potassium Chloride 100 ml @ 50 mls/hr Q2H PRN IV For Potassium 3.3 - 3.5 mEq/L 05/18/16 19:30 Magnesium Sulfate/ Sodium Chloride (Magnesium Sulfate Inj/NS Inj) 100 ml @ 50 mls/hr UNSCH PRN IV For Magnesium 0.9 - 1.1 mg/dL 05/18/16 19:30 Magnesium Oxide 800 mg 800 mg UNSCH PRN PO For Magnesium 1.2 - 1.6 mg/dL 05/18/16 19:30 Magnesium Sulfate/ Sodium Chloride (Magnesium Sulfate Inj/NS Inj) 100 ml @ 50 mls/hr UNSCH PRN IV For Magnesium 1.2 - 1.6 mg/dL 05/18/16 19:30 Potassium Phosphate 2000 mg 2,000 mg Q4H PRN PO For Phosphorus < 2.5 mg/dL 05/18/16 19:30 Sodium Phosphate/ Sodium Chloride (Sodium Phosphate Inj/NS 250 ml Inj) 250 ml @ 42 mls/hr UNSCH PRN IV For Phosphorus < 2.5 mg/dL 05/18/16 19:30 Potassium Chloride (KCl 40 Meq/30 ml Liq) 40 meq UNSCH PRN PO/TUBE SEE LABEL COMMENTS 05/18/16 19:30 Potassium Phosphate 2000 mg 2,000 mg UNSCH PRN PO/TUBE SEE LABEL COMMENTS 05/18/16 19:30 Potassium Phosphate/Sodium Chloride (Potassium Phosphate Inj/NS 250 ml Inj) 260 ml @ 42 mls/hr UNSCH PRN IV SEE LABEL COMMENTS 05/18/16 19:30 Lidocaine HCl (Lidoderm 5% Patch.12 Hr) 1 patch DAILY TD 05/18/16 19:30 05/20/16 08:14 Miscellaneous Information 1 HS T-DERMAL 05/18/16 21:00 05/19/16 20:14 Ketorolac Tromethamine (Toradol Inj) 15 mg Q6H IV PUSH 05/18/16 21:00 05/21/16 20:00 05/20/16 14:19 Metoprolol Tartrate (Lopressor) 25 mg Q12HR PO 05/19/16 09:00 05/20/16 08:14 Isosorbide Mononitrate (Imdur) 30 mg DAILY@07 PO 05/19/16 07:00 05/20/16 05:52 Miscellaneous (Pill Splitter) 1 ea UNSCH PRN OTHER SEE LABEL COMMENTS 05/18/16 22:45 Magnesium Hydroxide (Milk Of Magnphilip Liq) 30 ml DAILY PO 05/19/16 09:00 05/20/16 08:14 Famotidine (Pepcid) 20 mg BID PO 05/19/16 09:00 05/20/16 08:14 Atorvastatin Calcium (Lipitor) 80 mg HS PO 05/19/16 21:00 05/19/16 20:13 Duloxetine HCl (Cymbalta Dr) 30 mg DAILY PO 05/19/16 09:00 05/20/16 08:14 Enalapril Maleate (Vasotec) 5 mg DAILY PO 05/19/16 09:00 05/20/16 08:14 Finasteride (Proscar) 5 mg DAILY PO 05/19/16 09:00 05/20/16 08:14 Tamsulosin HCl (Flomax) 0.4 mg HS PO 05/19/16 21:00 05/19/16 20:14 Cyclobenzaprine HCl (Flexeril) 10 mg Q8HR PO 05/19/16 14:00 05/20/16 14:18 Oxycodone/ Acetaminophen (Percocet 5-325 Mg) 1 tab Q4H PRN PO PAIN 1-10 05/20/16 11:30 Morphine Sulfate (Morphine Inj) 4 mg Q4H PRN IV PUSH BREAKTHROUGH PAIN 05/20/16 11:30 05/20/16 15:33 Diphenhydramine HCl (Benadryl Inj) 25 mg Q6H PRN IM ITCHING 05/20/16 16:00 Diphenhydramine HCl (Benadryl Inj) 25 mg Q6H PRN IV PUSH itching 05/20/16 16:00 05/20/16 16:06 (Shawna Whyte) Medical Decision Making MDM Remarks 61 y/o male trauma with lumbar transverse process fractures rib fracture clavicle fracture (Shawna Whyte) Plan Plan Remarks cont nonop mgt of transverse process fracture, ok OOB from NRS standpoint physical therapy cont supportive care with analgesics clear to transfer out of unit from NRS standpoint (Shawna Whyte) Attending Statement The exam, history, and the medical decision-making described in the above note were completed with the assistance of the mid-level provider. I reviewed and agree with the findings presented. I attest that I had a [id number] encounter with the patient on the same day, and personally performed and documented my assessment and findings in the medical record. (Cuate Malone MD) Shawna hWyte May 20, 2016 16:17 Cuaet Malone MD May 22, 2016 18:14
--- NOTE | 2016-05-20 17:20 | HHI.CCPN ---
Subjective Brief History 61 year old male that fell 10-12 feet off a ladder when a branch hit him in the chest. Initial complaints of right shoulder, low back and chest wall pain. Unknown LOC. He does take Plavix and aspirin for cardiac stents. 24 Hour Review/Hospital Course 05/19/16 Has been monitored in ICU since last night Complaints of low back pain on Morphine SPIRAL WINDER Getting OOB with physical therapy Requiring 5 L nasal cannula 05/20/16 Attempting to get OOB with PT assistance Now on room air Transfer to Med/Surg floor Objective Vital Signs Date Time Temp Pulse Resp B/P Pulse Ox O2 Delivery O2 Flow Rate FiO2 05/20/16 12:00 55 05/20/16 12:00 98.9 28 125/67 95 05/20/16 09:41 Room Air 05/19/16 22:19 2.00 05/18/16 20:52 Intake and Output 05/19/16 05/19/16 05/19/16 07:59 15:59 23:59 Intake Total 440 ml 1500 ml 679 ml Output Total 150 ml 400 ml 725 ml Balance 290 ml 1100 ml -46 ml Result Diagram: 05/20/16 0400 05/20/16 0400 Assessment and Plan Plan GENERAL: 61-year-old well-nourished, well developed male. SKIN: Warm and dry. HEAD: Normocephalic. EYES: PERRL. ENT: No nasal bleeding or discharge. Mucous membranes pink and moist. NECK: Trachea midline. No JVD. CARDIOVASCULAR: Regular rate and rhythm. RESPIRATORY: No accessory muscle use. Rhonchi auscultated throughout lung alexander, diminished breath sounds in lower lobes. Breath sounds equal bilaterally. GASTROINTESTINAL: Abdomen soft, non-tender, nondistended. + BS. MUSCULOSKELETAL: Extremities without cyanosis, or edema. No obvious deformities. NEUROLOGICAL: Awake and alert. Normal speech. INJURIES: L2, L3 RIGHT transverse process fx RIGHT Rib fx (1,3,6,7) LEFT rib fx (2) RIGHT clavicle fx PMHx: CAD with 2 cardiac stents (On Plavix and ASA), CA, hyperlipidemia, RA ASSESSMENT AND PLAN: NEUROLOGICAL: Provide analgesia for comfort and pain -Flexeril, Toradol, lidocaine patch. Added PO Percocet, Morphine IV for breakthrough Morphine SPIRAL WINDER discontinued Neurosurgery following for transverse process fractures, non-operative HOB elevated > 30 degrees CARDIOVASCULAR: HR = sinus rhythm. HR = 55-65 BPM. BP = stable Follow CMP - Electrolyte protocol in place for replacement. RESPIRATORY: Now on RA Continue to monitor closely for hypoxemia. Pulmonary toilet - EZPAP, Acapella, IS Bronchodilators - Duonebs q2H PRN 05/19: CXR- discoid atelectasis within the left midlung field Labs PRN Chest X-Ray in AM GASTROINTESTINAL: Diet -Regular, tolerating Bowel regimen - Colace and MOM. No BM yet. Lactulose 1. RENAL / URINARY: I&O + 763 BUN / creat - 13 / 0.92 ENDOCRINE: BGM - 110mg/dL HEMATOLOGY: H&H: 11.8 / 36.5 PLT 153 Hold Plavix and ASA On heparin SQ INFECTIOUS DISEASE: Follow CBC WBC - 11.8 Tmax 99.3 PROPHYLAXIS: GI -Pepcid PO DVT - Mechanical VTE with SCDs. Chemical management with Heparin SQ SKIN: Warm / Dry ACTIVITY: Status - OOB PT and OT evaluating. CASE MANAGEMENT: Consulted for assist with DC planning. Placement - disposition will depend on patient progress. Ortho cleared for discharge. Plan of care discussed with patient and RN at bedside. Transfer to Med/Surg floor. Trauma surgery team will round daily and evaluate patient and adjust the treatment plan. Plan to discharge when to 2 days when pain better controlled and patient is able to breathe deeply and prevent pneumonia. Valerie Moon May 20, 2016 17:20
[2016-05-20] MEDS ORDERED: LACTULOSE SYRUP 20 GM/30 ML CUP PO ONE (17:30)
[2016-05-20] MEDS: ATORVASTATIN 80 MG TAB PO SCH (21:04)
[2016-05-20] MEDS: TAMSULOSIN HCL 0.4 MG CAP PO SCH (21:04)
[2016-05-20] MEDS: REMOVE OLD PATCH T-DERMAL SCH (21:06)
[2016-05-20] MEDS ORDERED: diphenhydrAMINE HCL 50 MG/ML VIAL IV PUSH ONE (21:15)
[2016-05-20] MEDS: ACETAMINOPHEN/HYDROcodone 325 MG/5 MG TAB PO PRN (22:20)
[2016-05-21] VITALS (8 sets, daily range): BP systolic 119–148; BP diastolic 71–81; PULSE 55–85; RESP 16–17; TEMP 96.4–99.4; O2SAT 92–96
[2016-05-21] MEDS: KETOROLAC TROMETHAMINE 30 MG/ML (IVP) VIAL IV PUSH SCH ×3 (04:07→16:40)
[2016-05-21] MEDS: RESP: ALBUTEROL 2.5 MG/3 ML NEB (SCH) INH ×4 (04:23→20:45)
[2016-05-21] MEDS: HEPARIN SODIUM - SQ 10,000 UNITS/ML VIAL SQ SCH ×3 (05:40→21:46)
[2016-05-21] MEDS: ACETAMINOPHEN/HYDROcodone 325 MG/5 MG TAB PO PRN ×4 (05:40→23:21)
[2016-05-21] MEDS: CYCLOBENZAPRINE HCL 10 MG TAB PO SCH ×3 (05:40→21:45)
[2016-05-21] MEDS: ISOSORBIDE MONONITRATE 30 MG TAB PO SCH (05:40)
--- NOTE | 2016-05-21 06:56 | RADRPT ---
EXAM DATE/TIME: 05/21/2016 05:52 [facility] COMPARISON: CHEST SINGLE AP, May 19, 2016, 12:40. INDICATIONS : Shortness of breath. MEDICAL HISTORY : None. SURGICAL HISTORY : None. ENCOUNTER: Subsequent ACUITY: 4 - 6 days PAIN SCORE: Non-responsive. LOCATION: Bilateral chest FINDINGS: The cardiac silhouette is enlarged in transverse diameter. The lungs are free of acute parenchymal op acity. No effusions are identified. There is pleural thickening along the right lateral chest wall. CONCLUSION: 1. Cardiomegaly. No acute pulmonary disease. Saúl Coleman MD on May 21, 2016 at 6:53 Board Certified Radiologist. This report was verified electronically.
--- NOTE | 2016-05-21 08:07 | HHI.FF ---
Face to Face Verification Diagnosis: (1) Right clavicle fracture (2) Closed rib fracture (3) Lumbar transverse process fracture Physical Therapy Order: Evaluate and Treat, Improve ambulation, Strength and gait training Occupational Therapy Order: Evaluate and Treat, Improve ADL, Gross motor coordination Home Health Nursing Order: Medical education Diabetic education Nursing assessment with vital signs I have seen patient Riley Mcdonnell on 05/21/16. My clinical findings support the need for the requested home health care services because: Ltd mobility - disease progression Deconditioned w/ increased weakness Limited ability to care for self High risk of falls I certify that my clinical findings support that this patient is homebound because: Post-op weakness (Post injury weakness) Unsteady gait/balance Unsafe to leave home unassisted Elsi Smith May 21, 2016 08:07
[2016-05-21] MEDS ORDERED: DOCU1CAP39 PO (08:14)
[2016-05-21] MEDS ORDERED: DIPH50IN2 PO (08:14)
[2016-05-21] MEDS: METOPROLOL TARTRATE 25 MG TAB PO SCH ×2 (09:00→21:45)
--- NOTE | 2016-05-21 09:12 | HHI.PR ---
Subjective Remarks Patient seen and examined Report improvement of pain Able to ambulate Complained of constipation 3 days Objective Vitals Vital Signs Date Time Temp Pulse Resp B/P Pulse Ox O2 Delivery O2 Flow Rate FiO2 05/21/16 04:41 92 21 05/21/16 04:02 97.5 55 17 145/81 95 05/21/16 00:01 96.4 60 17 133/71 94 05/20/16 20:10 97.4 64 18 151/79 95 05/20/16 16:00 98.7 67 22 112/65 96 05/20/16 12:00 55 05/20/16 12:00 98.9 59 28 125/67 95 05/20/16 10:00 55 05/20/16 09:41 95 Room Air I/O 05/20/16 05/20/16 05/20/16 05/21/16 05/21/16 05/21/16 07:00 15:00 23:00 07:00 15:00 23:00 Intake Total 409 ml 803 ml 360 ml 480 ml Output Total 700 ml 400 ml 700 ml Balance -291 ml 403 ml 360 ml -220 ml Intake Oral 240 ml 350 ml 360 ml 480 ml IV Total 169 ml 453 ml Output Urine Total 700 ml 400 ml 700 ml # Voids 1 # Bowel Movements 0 0 0 0 Result Diagram: 05/20/1639905/20/16399 Objective Remarks GENERAL: NAD SKIN: Warm and dry. HEAD: Normocephalic. EYES: No scleral icterus. No injection or drainage. NECK: Supple, trachea midline. No JVD or lymphadenopathy. CARDIOVASCULAR: Regular rate and rhythm without murmurs, gallops, or rubs. RESPIRATORY: Breath sounds equal bilaterally. No accessory muscle use. GASTROINTESTINAL: Abdomen soft, non-tender, nondistended. MUSCULOSKELETAL: No cyanosis, or edema. Right arm in sling BACK: tender without obvious deformity. No CVA tenderness. A/P Assessment and Plan 61-year-old male with Trauma with multiple rib fracture, transverse processes fracture and mildly displaced clavicle fracture: Management per trauma surgery. Neurosurgery was consulted and advice on conservative nonoperative management for L2 to L3 and possible L1 transverse processes fractures. PT consult to treat and eval. Continue current pain management. Incentive spirometry at bedside. Clavicle fracture: Orthopedic surgery appreciated and advise on conservative management and continue with sling to right upper extremity History of CAD, hyperlipidemia, hypertension, BPH: Continue with outpatient medications Impaired fasting Glucose: A1c 6.1; advise on lifestyle modification, will repeat hemoglobin A1c in 3 months. Continue sliding scale insulin. Constipation: Give Fleet enema 1 now and continue with other stool softener. DVT prophylaxis: BSD GERD: PPI Ángel Carbajal MD May 21, 2016 09:12
[2016-05-21] MEDS: FINASTERIDE 5 MG TAB PO SCH (09:14)
[2016-05-21] MEDS: ENALAPRIL MALEATE 5 MG TAB PO SCH (09:14)
[2016-05-21] MEDS: DOCUSATE SODIUM 100 MG CAP PO SCH ×2 (09:14→21:44)
[2016-05-21] MEDS: DULoxetine HCl DR 30 MG CAP PO SCH (09:14)
[2016-05-21] MEDS: FAMOTIDINE 20 MG TAB PO SCH ×2 (09:14→21:45)
[2016-05-21] MEDS: LIDOCAINE HCL 5% PATCH TD SCH (09:15)
[2016-05-21] MEDS: MAGNESIUM HYDROXIDE SUSP 30 ML CUP PO SCH (09:16)
[2016-05-21] MEDS: SODIUM CHLORIDE 0.9% FLUSH 5 ML FLUSH IV FLUSH SCH ×2 (09:18→21:45)
[2016-05-21] MEDS ORDERED: SOD PHOSPHATE/SOD BIPHOSPHATE (ADULT) ENEMA 133ML PR ONE (10:15)
--- NOTE | 2016-05-21 13:14 | HHI.PR ---
Subjective Subjective Notes PTD: 3 Patient still complaining of pain. Discussed the importance of pulmonary toileting, and ambulation. Son at bedside. Discussed plan for discharge possibly tomorrow. Patient has not had a bowel movement and has been intensified with lactulose and an enema. Objective Vitals/I&O Vital Signs Date Time Temp Pulse Resp B/P Pulse Ox O2 Delivery O2 Flow Rate FiO2 05/21/16 10:33 96 21 05/21/16 10:08 96.7 55 16 119/72 05/21/16 09:05 Room Air 05/19/16 22:19 2.00 Labs Laboratory Tests Test 05/18/16 05/18/16 05/20/16 16:40 21:45 04:00 Prothrombin Time 10.5 SEC Prothromb Time International 1.0 RATIO Ratio Activated Partial 21.1 SEC Thromboplast Time Blood Type A POSITIVE Antibody Screen NEGATIVE Blood Bank Comment Nasal Screen MRSA (PCR) NEGATIVE White Blood Count 6.7 TH/MM3 Red Blood Count 4.50 MIL/MM3 Hemoglobin 11.8 GM/DL Hematocrit 36.5 % Mean Corpuscular Volume 80.9 FL Mean Corpuscular Hemoglobin 26.1 PG Mean Corpuscular Hemoglobin 32.2 % Concent Red Cell Distribution Width 14.4 % Platelet Count 153 TH/MM3 Mean Platelet Volume 7.9 FL Neutrophils (%) (Auto) 64.4 % Lymphocytes (%) (Auto) 23.1 % Monocytes (%) (Auto) 7.8 % Eosinophils (%) (Auto) 4.3 % Basophils (%) (Auto) 0.4 % Neutrophils # (Auto) 4.3 TH/MM3 Lymphocytes # (Auto) 1.5 TH/MM3 Monocytes # (Auto) 0.5 TH/MM3 Eosinophils # (Auto) 0.3 TH/MM3 Basophils # (Auto) 0.0 TH/MM3 CBC Comment DIFF FINAL Differential Comment Sodium Level 141 MEQ/L Potassium Level 4.2 MEQ/L Chloride Level 106 MEQ/L Carbon Dioxide Level 27.6 MEQ/L Anion Gap 7 MEQ/L Blood Urea Nitrogen 13 MG/DL Creatinine 0.92 MG/DL Estimat Glomerular Filtration 83 ML/MIN Rate Random Glucose 110 MG/DL Hemoglobin A1c 6.1 % Calcium Level 8.0 MG/DL Phosphorus Level 2.6 MG/DL Magnesium Level 2.1 MG/DL Total Bilirubin 0.3 MG/DL Aspartate Amino Transf 17 U/L (AST/SGOT) Alanine Aminotransferase 24 U/L (ALT/SGPT) Alkaline Phosphatase 86 U/L Total Protein 6.0 GM/DL Albumin 2.9 GM/DL Radiology Last Impressions Chest X-Ray 05/21/16 0600 Signed Impressions: Service Date/Time: Saturday, May 21, 2016 05:52 - CONCLUSION: 1. Cardiomegaly. No acute pulmonary disease. Saúl Coleman MD Thoracic Spine CT 05/18/161620 Signed Impressions: Service Date/Time: Wednesday, May 18, 2016 18:16 - CONCLUSION: 1. No thoracic spine fracture. 2. There are scattered bilateral rib fractures. Ángel Bush MD Pelvis X-Ray 05/18/161620 Signed Impressions: Service Date/Time: Wednesday, May 18, 2016 16:47 - CONCLUSION: Unremarkable examination of the pelvis. Maurice Walker MD Lumbar Spine CT 05/18/161620 Signed Impressions: Service Date/Time: Wednesday, May 18, 2016 18:16 - CONCLUSION: 1. No compression fracture or subluxation. 2. Fractures of right L2 and L3 transverse processes and possibly L1 as well. Ángel Bush MD Head CT 05/18/161620 Signed Impressions: Service Date/Time: Wednesday, May 18, 2016 18:05 - CONCLUSION: Normal examination. Ángel Bush MD Chest CT 05/18/161620 Signed Impressions: Service Date/Time: Wednesday, May 18, 2016 18:16 - CONCLUSION: 1. Multiple rib fractures bilaterally more numerous on the right. 2. Right clavicle fracture. 3. No pneumo or hemothorax. Ángel Bush MD Cervical Spine CT 05/18/161620 Signed Impressions: Service Date/Time: Wednesday, May 18, 2016 18:05 - CONCLUSION: 1. No compression fracture or subluxation. 2. Fracture of the right first rib and second left rib Ángel Bush MD Abdomen/Pelvis CT 05/18/161620 Signed Impressions: Service Date/Time: Wednesday, May 18, 2016 18:16 - CONCLUSION: 1. No abdominal visceral injury. 2. Fractures of the right L2 and L3 transverse processes. Ángel Bush MD Knee X-Ray 05/18/16 0000 Signed Impressions: Service Date/Time: Wednesday, May 18, 2016 16:48 - CONCLUSION: Unremarkable examination of the left knee. Maurice Walker MD Hand X-Ray 05/18/16 0000 Signed Impressions: Service Date/Time: Wednesday, May 18, 2016 16:41 - CONCLUSION: No acute bony injury Maurice Walker MD Clavicle X-Ray 05/18/16 0000 Signed Impressions: Service Date/Time: Wednesday, May 18, 2016 16:50 - CONCLUSION: Mildly displaced right clavicle fracture Maurice Walker MD Narrative Exam GENERAL: This is a 61-year-old male sitting in bed in no acute distress. SKIN: Warm and dry. HEAD: Atraumatic. Normocephalic. EYES: PERRLA ENT: No nasal bleeding or discharge. Mucous membranes pink and moist. NECK: Trachea midline. No JVD. CARDIOVASCULAR: Regular rate and rhythm. RESPIRATORY: No accessory muscle use. Lungs are clear to auscultation. Breath sounds equal bilaterally. No distress or dyspnea. GASTROINTESTINAL: BS + x 4 quads. Abdomen soft, non-tender, nondistended. MUSCULOSKELETAL: Extremities without cyanosis, or edema. + peripheral pulses x 4 extremities. Warm with good capillary refill and sensation. MAEW. NEUROLOGICAL: Awake and alert. Normal speech and pattern. A/P Problem List: (1) Fall from ladder (2) Right clavicle fracture (3) Lumbar transverse process fracture Discharge Planning [place]: This is a 61-year-old male that was involved in a fall from a ladder after branch hit him in the chest. His initial complaints were of right shoulder pain and low back pain and chest wall pain. PMHx: CAD with 2 cardiac stents (On Plavix and ASA), [place], hyperlipidemia, RA INJURIES: RIGHT clavicle fx (non-op) RIGHT Rib fx (1,3,6,7) LEFT rib fx (2) L2, L3 RIGHT transverse process fx (non-op) Consults: Orthopedics, neurosurgery. Diet: Regular diet. Tolerating po diet. Encourage good po intake with each meal. Pulmonary: Encourage good pulmonary toileting. IS and a cappella at bedside and pt encouraged to use. Rationale for use explained to patient, and verbalized understanding. EZpap ordered. PAIN Management: [place]. Flexeril. Lidocaine patch. Toradol. Morphine IV when necessary breakthrough pain. Activity: OOB. PT and OT ordered GI prophylaxis: Pepcid by mouth. Bowel regimen: Colace and MOM. No BM 3 days. Intensified with Lactulose 1 DVT prophylaxis: Mechanical VTE with SCDs. Chemical management with Heparin SQ. DC Planning: Case management consulted for assistance with final discharge disposition. Plan is for the patient to go home tomorrow. Case management is assisting with home health care set up. Hypertension management: Lopressor. Vasotec. Emotional support provided to patient and family at bedside and plan of care discussed. Discussed with RN at bedside Patient is hemodynamically stable and being managed on the med/surg floor. The exam, history, and the medical decision-making described in the above note were completed with the assistance of the mid-level provider. I reviewed and agree with the findings presented. I attest that I had a [id number] encounter with the patient on the same day, and personally performed and documented my assessment and findings in the medical record. Problem Qualifiers (1) Right clavicle fracture: Qualified Code: S42.021A - Closed displaced fracture of shaft of right clavicle , initial encounter (2) Lumbar transverse process fracture: Qualified Code: S32.008A - Lumbar transverse process fracture, closed, initial encounter Elsi Smith May 21, 2016 13:14 Gasper Magdaleno MD May 21, 2016 18:21
[2016-05-21] MEDS: MORPHINE SULFATE 4 MG/ML INJ IV PUSH PRN (13:23)
[2016-05-21] MEDS: ATORVASTATIN 80 MG TAB PO SCH (21:44)
[2016-05-21] MEDS: TAMSULOSIN HCL 0.4 MG CAP PO SCH (21:45)
[2016-05-21] MEDS: REMOVE OLD PATCH T-DERMAL SCH (21:50)
[2016-05-22 00:10] VITALS: BP 139/70; PULSE 69; RESP 16; TEMP 97.9; O2SAT 97
[2016-05-22] MEDS: ACETAMINOPHEN/HYDROcodone 325 MG/5 MG TAB PO PRN ×3 (02:50→13:19)
[2016-05-22] MEDS: RESP: ALBUTEROL 2.5 MG/3 ML NEB (SCH) INH ×2 (04:31→09:13)
[2016-05-22] MEDS: CYCLOBENZAPRINE HCL 10 MG TAB PO SCH (05:41)
[2016-05-22] MEDS: HEPARIN SODIUM - SQ 10,000 UNITS/ML VIAL SQ SCH (05:42)
[2016-05-22] MEDS: ISOSORBIDE MONONITRATE 30 MG TAB PO SCH ×2 (05:42→09:05)
[2016-05-22 07:43] VITALS: BP 129/79; PULSE 60; RESP 18; TEMP 98; O2SAT 95
[2016-05-22] MEDS ORDERED: MILKSUS PO (07:54)
[2016-05-22] MEDS ORDERED: BISACODYL EC 5 MG TABEC PO ONE (08:00)
[2016-05-22] MEDS ORDERED: BISACODYL 10 MG SUPP RECTAL ONE (08:00)
[2016-05-22] MEDS: METOPROLOL TARTRATE 25 MG TAB PO SCH (09:00)
[2016-05-22] MEDS: DULoxetine HCl DR 30 MG CAP PO SCH (09:05)
[2016-05-22] MEDS: ENALAPRIL MALEATE 5 MG TAB PO SCH (09:05)
[2016-05-22] MEDS: FAMOTIDINE 20 MG TAB PO SCH (09:05)
[2016-05-22] MEDS: DOCUSATE SODIUM 100 MG CAP PO SCH (09:05)
[2016-05-22] MEDS: FINASTERIDE 5 MG TAB PO SCH (09:05)
[2016-05-22] MEDS: SODIUM CHLORIDE 0.9% FLUSH 5 ML FLUSH IV FLUSH SCH (09:06)
[2016-05-22] MEDS: LIDOCAINE HCL 5% PATCH TD SCH (09:06)
[2016-05-22] MEDS: MAGNESIUM HYDROXIDE SUSP 30 ML CUP PO SCH (09:07)
--- NOTE | 2016-05-22 09:53 | HHI.PR ---
Subjective Remarks Patient seen and examined Reports some pain to his right clavicle and right arm Positive for bowel movement Currently afebrile Objective Vitals Vital Signs Date Time Temp Pulse Resp B/P Pulse Ox O2 Delivery O2 Flow Rate FiO2 05/22/16 07:43 98.0 60 18 129/79 95 05/22/16 00:10 97.9 69 16 139/70 97 05/21/16 20:00 99.4 70 17 148/79 95 05/21/16 16:00 98.7 73 16 124/74 94 05/21/16 14:57 98.5 85 16 132/75 94 05/21/16 10:33 96 21 05/21/16 10:08 96.7 55 16 119/72 94 I/O 05/21/16 05/21/16 05/21/16 05/22/16 05/22/16 05/22/16 07:00 15:00 23:00 07:00 15:00 23:00 Intake Total 480 ml 240 ml 360 ml Output Total 700 ml 400 ml Balance -220 ml 240 ml -40 ml Intake Oral 480 ml 240 ml 360 ml Output Urine Total 700 ml 400 ml # Voids 2 1 # Bowel Movements 0 0 Result Diagram: 05/20/1639905/20/160 Objective Remarks GENERAL: NAD SKIN: Warm and dry. HEAD: Normocephalic. EYES: No scleral icterus. No injection or drainage. NECK: Supple, trachea midline. No JVD or lymphadenopathy. CARDIOVASCULAR: Regular rate and rhythm without murmurs, gallops, or rubs. RESPIRATORY: Breath sounds equal bilaterally. No accessory muscle use. GASTROINTESTINAL: Abdomen soft, non-tender, nondistended. MUSCULOSKELETAL: No cyanosis, or edema. Right arm in sling BACK: tender without obvious deformity. No CVA tenderness. A/P Assessment and Plan 61-year-old male with Trauma with multiple rib fracture, transverse processes fracture and mildly displaced clavicle fracture: Management per trauma surgery. Neurosurgery was consulted and advice on conservative nonoperative management for L2 to L3 and possible L1 transverse processes fractures. PT consult to treat and eval. Continue current pain management. Incentive spirometry at bedside. Clavicle fracture: Orthopedic surgery appreciated and advise on conservative management and continue with sling to right upper extremity History of CAD, hyperlipidemia, hypertension, BPH: Continue with outpatient medications Impaired fasting Glucose: A1c 6.1; advise on lifestyle modification, will repeat hemoglobin A1c in 3 months. Continue sliding scale insulin. Constipation: Resolved status post Fleet enema 1 05/21/16 and continue with other stool softener. DVT prophylaxis: BSD GERD: PPI Medically stable for discharge Ángel Carbajal MD May 22, 2016 09:53
[2016-05-22 10:13] VITALS: RESP 18
--- NOTE | 2016-05-22 14:27 | HHI.DS ---
Discharge Summary Admission Date May 18, 2016 at 18:48 Discharge Date: May 22, 2016 Admitting Diagnosis rib fractures (1) Fall from ladder (2) Right clavicle fracture Diagnosis: Principal (3) Lumbar transverse process fracture CBC/BMP: 05/20/16 0400 05/20/16 0400 Significant Findings Laboratory Tests Test 05/20/16 04:00 Hemoglobin 11.8 GM/DL (13.0-17.0) Hematocrit 36.5 % (39.0-51.0) Mean Corpuscular Hemoglobin 26.1 PG (27.0-34.0) Eosinophils (%) (Auto) 4.3 % (0.0-4.0) Estimat Glomerular Filtration 83 ML/MIN (>89) Rate Random Glucose 110 MG/DL (74-106) Hemoglobin A1c 6.1 % (4.3-6.0) Calcium Level 8.0 MG/DL (8.5-10.1) Total Protein 6.0 GM/DL (6.4-8.2) Albumin 2.9 GM/DL (3.4-5.0) Imaging Last Impressions Chest X-Ray 05/21/16 0600 Signed Impressions: Service Date/Time: Saturday, May 21, 2016 05:52 - CONCLUSION: 1. Cardiomegaly. No acute pulmonary disease. Saúl Coleman MD Thoracic Spine CT 05/18/161620 Signed Impressions: Service Date/Time: Wednesday, May 18, 2016 18:16 - CONCLUSION: 1. No thoracic spine fracture. 2. There are scattered bilateral rib fractures. Ángel Bush MD Pelvis X-Ray 05/18/161620 Signed Impressions: Service Date/Time: Wednesday, May 18, 2016 16:47 - CONCLUSION: Unremarkable examination of the pelvis. Maurice Walker MD Lumbar Spine CT 05/18/16 162 Signed Impressions: Service Date/Time: Wednesday, May 18, 2016 18:16 - CONCLUSION: 1. No compression fracture or subluxation. 2. Fractures of right L2 and L3 transverse processes and possibly L1 as well. Ángel Bush MD Head CT 05/18/16 162 Signed Impressions: Service Date/Time: Wednesday, May 18, 2016 18:05 - CONCLUSION: Normal examination. Ángel Bush MD Chest CT 05/18/16 1621 Signed Impressions: Service Date/Time: Wednesday, May 18, 2016 18:16 - CONCLUSION: 1. Multiple rib fractures bilaterally more numerous on the right. 2. Right clavicle fracture. 3. No pneumo or hemothorax. Ángel Bush MD Cervical Spine CT 05/18/16 1621 Signed Impressions: Service Date/Time: Wednesday, May 18, 2016 18:05 - CONCLUSION: 1. No compression fracture or subluxation. 2. Fracture of the right first rib and second left rib Ángel Bush MD Abdomen/Pelvis CT 05/18/16 1621 Signed Impressions: Service Date/Time: Wednesday, May 18, 2016 18:16 - CONCLUSION: 1. No abdominal visceral injury. 2. Fractures of the right L2 and L3 transverse processes. Ángel Bush MD Knee X-Ray 05/18/16 0000 Signed Impressions: Service Date/Time: Wednesday, May 18, 2016 16:48 - CONCLUSION: Unremarkable examination of the left knee. Maurice Walker MD Hand X-Ray 05/18/16 0000 Signed Impressions: Service Date/Time: Wednesday, May 18, 2016 16:41 - CONCLUSION: No acute bony injury Maurice Walker MD Clavicle X-Ray 05/18/16 0000 Signed Impressions: Service Date/Time: Wednesday, May 18, 2016 16:50 - CONCLUSION: Mildly displaced right clavicle fracture Maurice Walker MD PE at Discharge GENERAL: This is a 61-year-old male sitting in bed in no acute distress. SKIN: Warm and dry. HEAD: Atraumatic. Normocephalic. EYES: PERRLA ENT: No nasal bleeding or discharge. Mucous membranes pink and moist. NECK: Trachea midline. No JVD. CARDIOVASCULAR: Regular rate and rhythm. RESPIRATORY: No accessory muscle use. Lungs are clear to auscultation. Breath sounds equal bilaterally. No distress or dyspnea. GASTROINTESTINAL: BS + x 4 quads. Abdomen soft, non-tender, nondistended. MUSCULOSKELETAL: Ultra sling in place to right extremity. Extremities without cyanosis, or edema. + peripheral pulses x 4 extremities. Warm with good capillary refill and sensation. MAEW. NEUROLOGICAL: Awake and alert. Normal speech and pattern. Hospital Course This is a 61-year-old male who sustained a fall from a ladder added after a branch hit him in the chest. His initial complaints were of right shoulder pain , lower back, and chest wall pain. PMHx: CAD with 2 cardiac stents (On Plavix and ASA), [place], hyperlipidemia, RA INJURIES: RIGHT clavicle fx (non-op) RIGHT Rib fx (1,3,6,7) LEFT rib fx (2) L2, L3 RIGHT transverse process fx (non-op) Consults: Orthopedics, neurosurgery, and hospitalists. The patient is now tolerating a po diet. Eating and drinking well. Pain is being managed well with PO pain medications, and patient is being a provided with a script for pain meds upon discharge. (NO driving while taking narcotic pain medication enforced to patient.) Patient's bowel regimen has been intensified each day during his hospital stay. Additionally we have recommended to the patient to continue with stool softeners while taking narcotic pain medications. Pt has been participating in PT and OT while admitted at [place] and has been ambulating with their assistance and independently . Patient will remain nonweightbearing RIGHT upper extremity due to clavicle fracture. Additionally encouraged good pulmonary toileting, even after discharge All follow up appointments have been provided and discussed with the patient. It is recommended that the patient keeps all his follow up appointments for continued recovery. Therefore, the patient is stable to be safely discharged home into his son's care from a trauma surgery standpoint. Thank you for allowing us to participate in his care. We wish Shoukat the best in his recovery. Pt Condition on Discharge: Stable Discharge Disposition: Discharge Home Discharge Instructions DIET: Follow Instructions for: As Tolerated, No Restrictions Activities you can perform: Non Weight Bearing, Shower/Bath Other Activity Instructions: Non weight bearing RIGHT upper extremity Elsi Smith May 22, 2016 14:27
[2016-05-31] MEDS ORDERED: TAMS5CAP PO (01:04)
[2016-05-31] MEDS ORDERED: MIRA33504 PO (01:04)
[2016-07-11] MEDS ORDERED: HYDR-3366 PO (08:23)
== END 2016-05-22 14:02 | disposition home or self-care (01) | DRG 183 ==
LOC: NEPE 15:57 → NEDA 18:48 → HIME 21:30 → N03B 05-19 15:16 → N06B 05-20 18:46
PROVIDERS: ADMIT Surgery Trauma Surgery; ATTEND Surgery Trauma Surgery
DX: S22.43XA Multiple fractures of ribs, bilateral, initial encounter for closed fracture (principal); S32.038 Other fracture of third lumbar vertebra; S27.329A Contusion of lung, unspecified, initial encounter; S32.028A Other fracture of second lumbar vertebra, initial encounter for closed fracture; S42.021A Displaced fracture of shaft of right clavicle, initial encounter for closed fracture; W11.XXXA Fall on and from ladder, initial encounter; Y92.9 Unspecified place or not applicable; I25.2 Old myocardial infarction; I10 Essential (primary) hypertension; E78.00 Pure hypercholesterolemia, unspecified; M06.9 Rheumatoid arthritis, unspecified; Z95.5 Presence of coronary angioplasty implant and graft; I25.10 Atherosclerotic heart disease of native coronary artery without angina pectoris; N40.0 Benign prostatic hyperplasia without lower urinary tract symptoms; R73.9 Hyperglycemia, unspecified; K21.9 Gastro-esophageal reflux disease without esophagitis; E78.5 Hyperlipidemia, unspecified; Y93.H9 Activity, other involving exterior property and land maintenance, building and construction; R73.01 Impaired fasting glucose; K59.00 Constipation, unspecified
CPT/HCPCS: 70450; 71010; 71260; 72125; 72128; 72131; 72170; 73000; 73130; 73564; 74177; 80048; 80053; 83036; 83735; 84100; 85025; 85610; 85730; 86850; 86900; 86901; 87641; 93005; 94150; 94640; 94664; 94667; 94668; 96374; 96376; J1200; J1644; J1885; J2270; J7030; J7613; Q9967

== ENCOUNTER 2016-05-30 16:42 | Emergency (ER) | payer OTHER ==
[~2016-05-30] VITALS: Ht 172.7 cm; Wt 83.2 kg
[~2016-05-30 16:42] MED LIST changes: +ASPI1TAB91 PO; +ATOR1TAB18 PO; -ATOR80TA PO; -CELE200C PO; -CYCL-36 PO; +CYCL1TAB29 PO; -DICL1GEL TOP; +DIPH50IN2 PO; +DOCU1CAP39 PO; +DULO1CAP2 PO; -DULO30 PO; +FINA5TAB2 PO; -FINA5TAB77 PO; -HYDR-3533 PO; -ISOS30 PO; +ISOS30TA3 PO; -METO25 PO; +METO25TA3 PO; +MILKSUS PO; -NITR.4 SL; +NORC5TAB PO; +STRA80CA PO; +TAMO10TA6 PO; +TAMS0.4C4 PO; -TAMS0.4C67 PO; -ZOLP1TAB32 PO
[2016-05-30 16:44] VITALS: BP 158/85; PULSE 62; RESP 20; TEMP 98.2; O2SAT 94
[2016-05-31] MEDS ORDERED: MIRA33504 PO ×2 (01:04)
[2016-05-31] MEDS ORDERED: TAMS5CAP PO ×2 (01:04)
[2016-05-31] MEDS ORDERED: PERC7.5T13 PO (01:42)
[2016-07-11] MEDS ORDERED: HYDR-3366 PO (08:23)
== END 2016-05-30 18:58 | disposition left against medical advice (07) ==
LOC: NED 16:42
DX: R07.9 Chest pain, unspecified (principal)
CPT/HCPCS: 99281

== ENCOUNTER 2016-05-30 20:08 | Observation (INO) | payer OTHER ==
[2016-05-30 20:09] VITALS: BP 150/83; PULSE 66; RESP 18; TEMP 98.6; O2SAT 96
[2016-05-30] MEDS ORDERED: ONDANSETRON HCL 4 MG/2 ML VIAL IV PUSH ONE (22:45)
[2016-05-30] MEDS ORDERED: MORPHINE SULFATE 4 MG/ML INJ IV PUSH ONE (22:45)
[2016-05-30] MEDS ORDERED: SODIUM CHLOR 0.9% 1000 ML INJ 1,000 ML IV SCH (22:45)
--- NOTE | 2016-05-30 22:48 | PD ---
HPI Chief Complaint: Chest Pain Time Seen by Provider: 22:48 Travel History International Travel<30 days: No Contact w/Intl Traveler<30days: No Traveled to known affect area: No History of Present Illness HPI 61-year-old male with a history of CAD status post stents 2, hypertension, hyperlipidemia, rheumatoid arthritis presents to the emergency department for evaluation of left anterior chest pressure and lower back pain. The patient was admitted to our facility 2 weeks ago status post fall from a ladder sustaining multiple rib fractures, right clavicular fracture and a fracture of L2-L3 vertebral bodies. The patient states that he has been managing his pain with Lortab since he was discharged. States that today about 7 hours ago he began to experience left anterior chest pressure with mild shortness of breath. States that the pain is aggravated with inspiration. States that the pain is also associated with nausea and lightheadedness. The patient states that he has also begun to experience radiating pain from his lower back to bilateral posterior thighs. He denies any fever, chills, vomiting, cough or cold symptoms , abdominal pain, saddle anesthesia, bowel or bladder incontinence. Patient states his last stress test was September 2016 and was normal. Last cardiac catheterization was 6 years ago in [place]. He does admit to a history of DVT in the past, was on Lovenox for 6 months and has since only been on Plavix and aspirin. No other complaints. PFSH Past Medical History Arthritis: Yes (RHEUMATOID ARTHRITIS (ARMS)) Cardiac Catheterization: Yes (stents x2) Cardiovascular Problems: Yes High Cholesterol: Yes Diminished Hearing: No Deep Vein Thrombosis: Yes Hypertension: Yes Immunizations Current: Yes Myocardial Infarction: Yes Triglycerides - High: Yes Social History Alcohol Use: No Tobacco Use: No Substance Use: No Allergies-Medications (Allergen,Severity, Reaction): Coded Allergies: No Known Allergies (Unverified , 05/30/16) Reported Meds & Prescriptions Reported Meds & Active Scripts Active Milk of Magnesia Liq (Magnesium Hydroxide) 400 Mg/5 Ml Susp 30 Ml PO HS 30 Days Diphenhydramine Inj (Diphenhydramine HCl) 50 Mg/Ml Inj 25 Mg PO Q6H PRN 30 Days Dok (Docusate Sodium) 100 Mg Cap 100 Mg PO BID 30 Days Tilden (Hydrocodone-Acetaminophen) 5-325 mg Tab 1 Tab PO Q4H PRN Reported Flexeril (Cyclobenzaprine HCl) 10 Mg Tab 10 Mg PO TID Duloxetine DR (Duloxetine HCl) 30 Mg Capdr 30 Mg PO DAILY Aspirin Adult Low Strength (Aspirin) 81 Mg Tabdr 81 Mg PO DAILY Enalapril (Enalapril Maleate) 5 Mg Tab 5 Mg PO DAILY Isosorbide Mononitrate ER (Isosorbide Mononitrate) 30 Mg Rachel 30 Mg PO DAILY Clopidogrel (Clopidogrel Bisulfate) 75 Mg Tab 75 Mg PO DAILY Tamoxifen (Tamoxifen Citrate) 10 Mg Tab 10 Mg PO BID Atorvastatin (Atorvastatin Calcium) 80 Mg Tab 80 Mg PO HS Metoprolol Tartrate 25 Mg Tab 25 Mg PO BID Finasteride 5 Mg Tab 5 Mg PO DAILY Do not crush. Strattera (Atomoxetine) 80 Mg Cap 80 Mg PO DAILY Tamsulosin (Tamsulosin HCl) 0.4 Mg Cap 0.4 Mg PO HS Review of Systems Except as stated in HPI: all other systems reviewed are Neg Physical Exam Narrative GENERAL: Well-nourished and well-developed pleasant male patient in no acute distress. SKIN: Warm and dry. HEAD: Normocephalic and atraumatic. EYES: No injection, drainage, or hyphema noted. PERRLA. EOMI. ENT: No nasal drainage noted. Oropharynx is clear. NECK: Supple and the trachea is midline. CARDIOVASCULAR: Regular rate and rhythm. RESPIRATORY: Decreased at bases bilaterally. Breath sounds are equal bilaterally with no accessory muscle use, wheezing, rhonchi, or crackles. GASTROINTESTINAL: Abdomen is soft, non-tender, and nondistended. MUSCULOSKELETAL: No obvious deformities, swelling, cyanosis, or ecchymosis is present throughout the upper and lower extremities. Patient has full range of motion without any signs of neurovascular compromise. NEUROLOGICAL: Awake, alert, and oriented. Normal speech and gait. Cranial nerves are grossly intact. Data Data Last Documented VS Vital Signs Date Time Temp Pulse Resp B/P Pulse Ox O2 Delivery O2 Flow Rate FiO2 05/30/16 20:09 98.6 66 18 150/83 96 Room Air Orders Electrocardiogram (05/30/16 22:45) Ckmb (Isoenzyme) Profile (05/30/16 22:45) Complete Blood Count With Diff (05/30/16 22:45) Comprehensive Metabolic Panel (05/30/16 22:45) Prothrombin Time / Inr (Pt) (05/30/16 22:45) Act Partial Throm Time (Ptt) (05/30/16 22:45) Troponin I (05/30/16 22:45) Chest, Single Ap (05/30/16 22:45) Ecg Monitoring (05/30/16 22:45) Iv Access Insert/Monitor (05/30/16 22:45) Oximetry (05/30/16 22:45) Morphine Inj (Morphine Inj) (05/30/16 22:45) Sodium Chloride 0.9% Flush (Ns Flush) (05/30/16 22:45) Ct Pulmonary Angiogram (05/30/16 22:45) Ondansetron Inj (Zofran Inj) (05/30/16 22:45) Sodium Chlor 0.9% 1000 Ml Inj (Ns 1000 M (05/30/16 22:45) MDM Medical Decision Making Medical Screen Exam Complete: Yes Emergency Medical Condition: Yes Differential Diagnosis PE versus pneumonia versus ACS versus rib fractures Narrative Course 61-year-old male presents to the emergency department for evaluation of chest pain and lower back pain. Patient is afebrile, vital signs are stable. IV access is obtained, labs have been drawn and sent. CT pulmonary angiogram has been ordered and is pending. Patient signed out to Dr. Kwon who will assume care of the patient and disposition. Veronique Ruiz May 30, 2016 22:48
[2016-05-30] MEDS: SODIUM CHLORIDE 0.9% FLUSH 5 ML FLUSH IVF PRN (23:22)
[2016-05-30 23:29] LABS: BASOPHIL # 0.1 TH/MM3 (0-0.2); BASOPHIL % 0.6 % (0.0-2.0); EOSINOPHIL # 0.3 TH/MM3 (0-0.4); EOSINOPHIL % 2.7 % (0.0-4.0); HEMATOCRIT 41.1 % (39.0-51.0); HEMO FLAGS DIFF FINAL; LYMPH % 24.4 % (9.0-44.0); LYMPHOCYTE # 2.6 TH/MM3 (1.0-4.8); MEAN CELL VOLUME 80.2 FL (80.0-100.0); MEAN CORPUSCULAR HEMOGLOBIN 26.2 PG (27.0-34.0); MEAN CORPUSCULAR HGB CONC 32.7 % (32.0-36.0); MONO % 6.8 % (0.0-8.0); NEUT % 65.5 % (16.0-70.0); PLATELET COUNT 307 TH/MM3 (150-450); RED BLOOD COUNT 5.13 MIL/MM3 (4.50-5.90); RED CELL DISTRIBUTION WIDTH 14.7 % (11.6-17.2); WHITE BLOOD COUNT 10.7 TH/MM3 (4.0-11.0)
[2016-05-30 23:39] LABS: APTT (PATIENT) 24.7 SEC (24.3-30.1); PROTHROMBIN TIME - PATIENT 10.6 SEC (9.8-11.6)
[2016-05-30 23:40] LABS: ALKALINE PHOSPHATASE 235 U/L (45-117); ALT (GPT) 30 U/L (12-78); ANION GAP 10 MEQ/L (5-15); AST (GOT) 16 U/L (15-37); BICARBONATE 25.5 MEQ/L (21.0-32.0); BLOOD UREA NITROGEN 17 MG/DL (7-18); CHLORIDE 104 MEQ/L (98-107); GLOMERULAR FILTRATION RATE 73 ML/MIN (>89); SODIUM (NA) 139 MEQ/L (136-145); TOTAL BILIRUBIN ADULT 0.4 MG/DL (0.2-1.0)
[2016-05-30 23:41] LABS: CREATINE KINASE 90 U/L (39-308)
--- NOTE | 2016-05-30 23:53 | RADRPT ---
EXAM DATE/TIME: 05/30/2016 23:23 [facility] COMPARISON: CHEST SINGLE AP, May 21, 2016, 5:52. INDICATIONS : Shortness of breath and chest pain. MEDICAL HISTORY : Right shoulder fracture. Right rib fractures. SURGICAL HISTORY : None. ENCOUNTER: Initial ACUITY: 1 day PAIN SCORE: 4/10 LOCATION: Left chest FINDINGS: A single view of the chest demonstrates the lungs to be symmetrically aerated without evidence of mas s, infiltrate or effusion. The heart size is enlarged but stable compared to the prior study.. There is a multiple right-sided rib fractures are again demonstrated which appear to be stable compared to the prior examination. fracture of the right clavicle which is stable. CONCLUSION: 1. No acute intrathoracic disease. 2. Compensated cardiomegaly 3. Stable multiple right-sided rib fractures and right clavicular fracture. Ulises Suarez MD on May 30, 2016 at 23:50 Board Certified Radiologist. This report was verified electronically.
[2016-05-31] VITALS (7 sets, daily range): BP systolic 118–160; BP diastolic 60–87; PULSE 59–74; RESP 14–18; TEMP 97.7–98.8; O2SAT 96–98
[2016-05-31] MEDS ORDERED: IOHEXOL 350 MG/ML 10 ML VIAL (for RAD DIAG) IV ONE (00:07)
--- NOTE | 2016-05-31 00:22 | RADRPT ---
EXAM DATE/TIME: 05/31/2016 00:05 [facility] COMPARISON: No previous studies available for comparison. INDICATIONS : Left sided chest pain with nausea. IV CONTRAST: 73 cc Omnipaque 350 (iohexol) IV RADIATION DOSE: 23.40 CTDIvol (mGy) MEDICAL HISTORY : Cardiovascular disease. Hypertension. Rheumatoid arthritis.dvt SURGICAL HISTORY : cardiac cath, stents. ENCOUNTER: Initial ACUITY: 1 day PAIN SCALE: 7/10 LOCATION: Left chest TECHNIQUE: Volumetric scanning of the chest was performed using a pulmonary embolism protocol MIP images were re constructed. Using automated exposure control and adjustment of the mA and/or kV according to patien t size, radiation dose was kept as low as reasonably achievable to obtain optimal diagnostic quality images. FINDINGS: PULMONARY ARTERIES: No filling defects are seen in the pulmonary arteries through the segmental level. LUNGS: There is no consolidation or pneumothorax . No concerning pulmonary nodule is visualized. There is a calcified granuloma in the posterior left upper lung. There is some scarring in the lung bases. PLEURAE: There is no pleural thickening or pleural effusion. MEDIASTINUM: There is good visualization of the great vessels of the middle mediastinum. No evidence of mediastin al or hilar adenopathy/mass. MUSCULOSKELETAL: Within normal limits for patient age. MISCELLANEOUS: The visualized upper abdominal organs demonstrate no acute abnormality. CONCLUSION: 1. No evidence of pulmonary embolism 2. No acute pulmonary infiltrates. Ulises Suarez MD on May 31, 2016 at 0:18 Board Certified Radiologist. This report was verified electronically.
[2016-05-31] MEDS ORDERED: HYDROmorphone HCL PF 1 MG/ML VIAL IV PUSH ONE (00:30)
[2016-05-31] MEDS: SODIUM CHLORIDE 0.9% FLUSH 5 ML FLUSH IVF PRN (00:39)
[2016-05-31] MEDS ORDERED: TAMS5CAP PO ×2 (01:04)
[2016-05-31] MEDS ORDERED: MIRA33504 PO ×2 (01:04)
--- NOTE | 2016-05-31 01:39 | PD ---
Data Data Last Documented VS Vital Signs Date Time Temp Pulse Resp B/P Pulse Ox O2 Delivery O2 Flow Rate FiO2 05/31/16 01:04 74 14 118/60 96 Room Air 05/30/16 20:09 98.6 Orders Electrocardiogram (05/30/16 22:45) Ckmb (Isoenzyme) Profile (05/30/16 22:45) Complete Blood Count With Diff (05/30/16 22:45) Comprehensive Metabolic Panel (05/30/16 22:45) Prothrombin Time / Inr (Pt) (05/30/16 22:45) Act Partial Throm Time (Ptt) (05/30/16 22:45) Troponin I (05/30/16 22:45) Chest, Single Ap (05/30/16 22:45) Ecg Monitoring (05/30/16 22:45) Iv Access Insert/Monitor (05/30/16 22:45) Oximetry (05/30/16 22:45) Morphine Inj (Morphine Inj) (05/30/16 22:45) Sodium Chloride 0.9% Flush (Ns Flush) (05/30/16 22:45) Ondansetron Inj (Zofran Inj) (05/30/16 22:45) Sodium Chlor 0.9% 1000 Ml Inj (Ns 1000 M (05/30/16 22:45) Ct Pulmonary Angiogram (05/31/16 ) Iohexol 350 Inj (Omnipaque 350 Inj) (05/31/16 00:07) Hydromorphone Pf Inj (Dilaudid Pf Inj) (05/31/16 00:30) Activity Bed Rest With Brp (05/31/16 01:39) Vital Signs (Adult) Q4H (05/31/16 01:39) Cardiac Rhythm .As Directed (05/31/16 01:39) ^ Notify Dr: Other .PRN (05/31/16 01:39) ^ Notify Dr. Parameters (05/31/16 01:39) Resp Oxygen Nasal Cannula (05/31/16 ) Ckmb (Isoenzyme) Profile (05/31/16 01:39) Ckmb (Isoenzyme) Profile (05/31/16 04:39) Troponin I (05/31/16 01:39) Troponin I (05/31/16 04:39) Electrocardiogram (05/31/16 01:39) Electrocardiogram (05/31/16 04:39) ^ Obtain (05/31/16 01:39) Sodium Chloride 0.9% Flush (Ns Flush) (05/31/16 01:45) Sodium Chloride 0.9% Flush (Ns Flush) (05/31/16 09:00) Acetamin-Hydrocod 325-7.5 Mg ([place] 7.5 (05/31/16 01:45) Morphine Inj (Morphine Inj) (05/31/16 01:45) Ondansetron Inj (Zofran Inj) (05/31/16 01:45) Nitroglycerin Sl (Nitrostat Sl) (05/31/16 01:45) Aspirin (Aspirin) (05/31/16 09:00) Temazepam (Restoril) (05/31/16 01:45) Alprazolam (Xanax) (05/31/16 01:45) Admissions Director / Telemetry (05/31/16 01:39) Admit Order (Ed Use Only) (05/31/16 01:39) Labs Laboratory Tests Test 05/30/16 23:00 White Blood Count 10.7 TH/MM3 Red Blood Count 5.13 MIL/MM3 Hemoglobin 13.5 GM/DL Hematocrit 41.1 % Mean Corpuscular Volume 80.2 FL Mean Corpuscular Hemoglobin 26.2 PG Mean Corpuscular Hemoglobin 32.7 % Concent Red Cell Distribution Width 14.7 % Platelet Count 307 TH/MM3 Mean Platelet Volume 8.0 FL Neutrophils (%) (Auto) 65.5 % Lymphocytes (%) (Auto) 24.4 % Monocytes (%) (Auto) 6.8 % Eosinophils (%) (Auto) 2.7 % Basophils (%) (Auto) 0.6 % Neutrophils # (Auto) 7.0 TH/MM3 Lymphocytes # (Auto) 2.6 TH/MM3 Monocytes # (Auto) 0.7 TH/MM3 Eosinophils # (Auto) 0.3 TH/MM3 Basophils # (Auto) 0.1 TH/MM3 CBC Comment DIFF FINAL Differential Comment Prothrombin Time 10.6 SEC Prothromb Time International 1.0 RATIO Ratio Activated Partial 24.7 SEC Thromboplast Time Sodium Level 139 MEQ/L Potassium Level 4.0 MEQ/L Chloride Level 104 MEQ/L Carbon Dioxide Level 25.5 MEQ/L Anion Gap 10 MEQ/L Blood Urea Nitrogen 17 MG/DL Creatinine 1.03 MG/DL Estimat Glomerular Filtration 73 ML/MIN Rate Random Glucose 145 MG/DL Calcium Level 8.7 MG/DL Total Bilirubin 0.4 MG/DL Aspartate Amino Transf 16 U/L (AST/SGOT) Alanine Aminotransferase 30 U/L (ALT/SGPT) Alkaline Phosphatase 235 U/L Total Creatine Kinase 90 U/L Troponin I LESS THAN 0.02 NG/ML Total Protein 7.8 GM/DL Albumin 3.5 GM/DL [facility] Medical Record Reviewed: Yes Supervised Visit with SUE: Yes Narrative Course I, Dr. Kwon, have reviewed the advance practice practitioner's documentation and am in agreement, met with the patient face to face, made the diagnosis, and the medical decision making was done by me. *My assessment and Findings: Patellar reflexes are intact bilaterally and equal. There is no ankle clonus. Hip flexion on the right side is limited due to pain however preserved. Extension and flexion of the knee is intact. He complains of new low back pain with radiation down the right leg. There is nothing to suggest compression of the cord or nerve rootlets based on exam and history. Further workup as an outpatient may be necessary if pain persists. The patient has a history of coronary artery disease w history catheterization 6 years prior. He has 2 stents. He reports strict compliance with aspirin and Plavix. Hypertension/hyperlipidemia also reported. Workup tonight is listed as below. There is no evidence of PE. Obviously the rib fractures could cause pain however and pain affects opposite side today. Serial enzymes and EKGs and stress test considered reasonable next step for this patient who agrees with plan. He did have an excellent response to parental analgesics in the ER. We provided a Percocet prescription as it seems Lortab was insufficient at home for trauma related pain and low back pain with sciatica. CBC & BMP Diagram 05/30/16 23:00 Tn < 0.02 EKG: Sinus, rate 78, normal axis/intervals, no TWI/acute ischemic change Last [address] Angiography 05/31/16 0000 Signed Impressions: Service Date/Time: Tuesday, May 31, 2016 00:05 - CONCLUSION: 1. No evidence of pulmonary embolism 2. No acute pulmonary infiltrates. Ulises Suarez MD Chest X-Ray 05/30/16 3467 Signed Impressions: Service Date/Time: Monday, May 30, 2016 23:23 - CONCLUSION: 1. No acute intrathoracic disease. 2. Compensated cardiomegaly 3. Stable multiple right-sided rib fractures and right clavicular fracture. Ulises Suarez MD The patient will be further evaluated in the chest pain center. Diagnosis Primary Impression: Chest pain Qualified Code: R07.9 - Chest pain, unspecified type Additional Impressions: Rib fractures Qualified Code: S22.41XD - Closed fracture of multiple ribs of right side with routine healing, subsequent encounter Low back pain Qualified Code: M54.41 - Chronic right-sided low back pain with right-sided sciatica Admitting Information Admitting Physician Requests: Observation Scripts Oxycodone-Acetaminophen (Percocet)7.5-325 mg Tab1 Tab PO Q6H PRN (PAIN SCALE 6 TO 10) #30 TAB Ref 0 Prov:Ant Kwon MD 05/31/16 Ant Kwon MD May 31, 2016 01:39
[2016-05-31] MEDS ORDERED: PERC7.5T13 PO (01:42)
[2016-05-31] MEDS ORDERED: MORPHINE SULFATE 4 MG/ML INJ IV PRN (01:45)
[2016-05-31] MEDS ORDERED: NITROGLYCERIN 0.4 MG SL 25 TABS/BTL SL PRN (01:45)
[2016-05-31] MEDS ORDERED: SODIUM CHLORIDE 0.9% FLUSH 5 ML FLUSH IVF PRN (01:45)
[2016-05-31] MEDS ORDERED: ONDANSETRON HCL 4 MG/2 ML VIAL IV PRN (01:45)
[2016-05-31] MEDS ORDERED: TEMAZEPAM 15 MG CAP PO PRN (01:45)
[2016-05-31] MEDS ORDERED: ALPRAZolam 0.25 MG TAB PO PRN (01:45)
[2016-05-31] MEDS ORDERED: ACETAMINOPHEN/HYDROcodone 325 MG/7.5 MG TAB PO PRN (01:45)
[2016-05-31 02:45] LABS: CREATINE KINASE 65 U/L (39-308)
[2016-05-31 05:20] LABS: CREATINE KINASE 59 U/L (39-308)
[2016-05-31] MEDS ORDERED: SODIUM CHLORIDE 0.9% FLUSH 5 ML FLUSH IVF SCH (09:00)
[2016-05-31] MEDS ORDERED: ASPIRIN 325 MG TAB PO SCH (09:00)
--- NOTE | 2016-05-31 10:43 | EKG ---
Date Performed: 05/31/2016 Time Performed: 04:27:38 PTAGE: 61 years EKG: Sinus rhythm MARKED LEFT AXIS DEVIATION PATTERN CONSISTENT WITH PULMONARY DISEASE ABNORMAL ECG Since PREVIOUS TRACING , no significant change noted PREVIOUS TRACIN05/30/2016 23.00 DOCTOR: Autumn Gomez Interpretating Date/Time 05/31/2016 10:41:40
--- NOTE | 2016-05-31 10:43 | EKG ---
Date Performed: 05/31/2016 Time Performed: 02:02:37 PTAGE: 61 years EKG: Sinus rhythm PATTERN CONSISTENT WITH PULMONARY DISEASE LEFT ANTERIOR FASCICULAR BLOCK ABNORMAL ECG Since previous tracing, no significant change noted NO PREVIOUS TRACING DOCTOR: Autumn Gomez Interpretating Date/Time 05/31/2016 10:42:30
--- NOTE | 2016-05-31 10:44 | EKG ---
Date Performed: 05/30/2016 Time Performed: 22:59:29 PTAGE: 61 years EKG: Sinus rhythm S1-S2-S3 PATTERN, CONSISTENT WITH PULMONARY DISEASE, RVH, OR NORMAL VARIANT PATTERN CONSISTENT WITH PULMONARY DISEASE LEFT ANTERIOR FASCICULAR BLOCK ABNORMAL ECG Compared with prior study there is a ne w pulmonary disease pattern PREVIOUS TRACING : 05/18/2016 16.17 DOCTOR: Autumn Gomez Interpretating Date/Time 05/31/2016 10:44:02
[2016-05-31] MEDS ORDERED: ISOSORBIDE MONONITRATE 30 MG TAB PO SCH (11:15)
[2016-05-31] MEDS ORDERED: DULoxetine HCl DR 30 MG CAP PO SCH (11:15)
[2016-05-31] MEDS ORDERED: FINASTERIDE 5 MG TAB PO SCH (11:15)
[2016-05-31] MEDS ORDERED: METOPROLOL TARTRATE 25 MG TAB PO SCH (11:15)
[2016-05-31] MEDS ORDERED: CLOPIDOGREL 75 MG TAB PO SCH (11:15)
[2016-05-31] MEDS ORDERED: ENALAPRIL MALEATE 5 MG TAB PO SCH (11:15)
[2016-05-31] MEDS ORDERED: TAMSULOSIN HCL 0.4 MG CAP PO SCH (11:15)
[2016-05-31] MEDS ORDERED: REGADENOSON INJ 0.4 MG/5 ML SYR ONE (11:50)
--- NOTE | 2016-05-31 13:43 | RADRPT ---
EXAM DATE/TIME: 05/31/2016 11:18 [facility] COMPARISON: CHEST SINGLE AP, May 30, 2016, 23:23. INDICATIONS : Substernal chest pain with dyspnea, nausea and lightheaded. Angina. DOSE: 25.9 mCi Tc99m Myoview at stress. 8.5 mCi Tc99m Myoview at rest. 0.4 mg Lexiscan STRESS SYMPTOMS: None. EJECTION FRACTION: 70% MEDICAL HISTORY : Deep venous thrombosis. Hypertension. Myocardial infarction. SURGICAL HISTORY : Coronary artery stent. ENCOUNTER: Initial ACUITY: 1 day PAIN SCALE: 6/10 LOCATION: Substernal chest TECHNIQUE: The patient underwent pharmacologic stress with infusion of prescribed dose. Continuous ECG tracing was monitored during stress. Gated SPECT imaging was performed after stress and conventional SPECT i maging was performed at rest. The examination was performed on a SPECT/CT scanner, both attenuation and non-corrected datasets were reviewed. FINDINGS: DISTRIBUTION: The maximum perfused segment at stress is in the anterior septal wall. PERFUSION STUDY: The pattern of perfusion at stress is within normal limits. GATED STUDY: There is intact wall motion and thickening without hypokinetic or dyskinetic segments. CONCLUSION: Normal examination. RISK CATEGORY: Low (<1% Annual Mortality Rate) Bruno Dominguez MD on May 31, 2016 at 13:40 Board Certified Radiologist. This report was verified electronically.
--- NOTE | 2016-05-31 14:39 | HHI.DCPOC ---
Discharge Care Plan Diagnosis: (1) Musculoskeletal chest pain (2) Hx of coronary artery disease Goals to Promote Your Health * To prevent worsening of your condition and complications * To maintain your health at the optimal level Directions to Meet Your Goals Take your medications as prescribed Follow your dietary instruction Follow activity as directed Keep your appointments as scheduled Take your immunizations and boosters as scheduled If your symptoms worsen call your PCP, if no PCP go to Urgent Care Center or Emergency Room Smoking is Dangerous to Your Health. Avoid second hand smoke Call the 24-hour hour crisis hotline for domestic abuse at Emelyn Brown May 31, 2016 14:39
--- NOTE | 2016-05-31 16:18 | MH ---
cc: EKATERINA SALTER MD DATE OF ADMISSION: 05/31/2016 DATE OF : 1955 CHIEF COMPLAINT Chest pain. HISTORY OF PRESENT ILLNESS This is a 61-year-old patient with known coronary artery disease including two cardiac stents placed in 2009. He presented to the emergency room for further evaluation of an onset chest pain at approximately 3:00 to 4:00 p.m. yesterday while at his orthopedic physician's appointment. The location was left anterior chest described as needle pain and pressure. That pain has since subsided and now he has a dull pain on his left anterior chest. The pain has been constant, lasting hours, although his changed in severity and has improved. There is no radiation of his pain. No known precipitating factors or relieving factors. No associated symptoms. The patient does state approximately two weeks ago he fell 10 feet from a ladder and had multiple rib fractures, also a right fracture of his clavicle, and L2 and L3 fractures as well. His primary care provider is Dr. Maurice Keita. PAST MEDICAL HISTORY 1. History of VA, two stents placed in 2009. 2. Hypertension. 3. Rheumatoid arthritis. 4. Dyslipidemia. PAST SURGICAL HISTORY Cataract surgery. SOCIAL HISTORY He has been quite active up until two weeks ago after falling from the ladder. Prior to that he had been working out at the gym on a regular basis and in fact has lost 20 pounds intentionally in the last six months through diet and exercise. He is a lifelong smoker. Denies any alcohol or illegal drug use. Does have known hypertension and dyslipidemia and has been told recently that he is a pre diabetic. PAST CARDIAC TESTING In September 2015 he had a nuclear treadmill in [place]. He was told that was normal. He was following with project landscape architect, Dr. Bains, however, his insurance has changed to [place] and he will be finding a new project landscape architect. ALLERGIES He has no allergies to medications. MEDICATIONS Current medications include: 1. Flomax 0.4 mg daily. 2. Finasteride 5 mg daily. 3. Enalapril 5 mg daily. 4. Duloxetine 30 mg daily. 5. Metoprolol tartrate 25 mg b.i.d. 6. MiraLax powder p.r.n. as needed for constipation. 7. Strattera 80 mg daily. 8. Flexeril 10 mg p.o. t.i.d. 9. Atorvastatin 80 mg q.h.s. 10. Imdur 30 mg daily. 11. Aspirin 81 mg daily. 12. [place] 5/325, one tablet q.4h. p.r.n. 13. Percocet 7.5/325, one tablet q.6h p.r.n. 14. Carvedilol 75 mg daily. REVIEW OF SYSTEMS GENERAL: He was in his general state of health up until his fall. Since his fall he is dealing with a lot of pain issues. However, has not had any fevers, chills, weakness or fatigue. Believes he may have been taking an antibiotic for five days and completed the antibiotic a few days ago. He is not sure what he was being treated for, although he was told that he was not taking enough deep breaths. HEENT: No headache or visual changes, nasal congestion or dysphagia. CARDIOVASCULAR: As stated above. Continues to have some heaviness on the left anterior chest. No intermittent leg pain or dizziness. PULMONARY: No shortness of breath, cough, wheeze, hemoptysis or upper respiratory infection. GASTROINTESTINAL: No nausea or vomiting, bowel changes, diarrhea, constipation, blood in the stool or dark stool. GENITOURINARY: No dysuria. EXTREMITIES: No lower leg edema. MUSCULOSKELETAL: He has pain in his right shoulder, right side of his chest, right lower back, status post fall two weeks ago. NEUROLOGIC: No difficulty with balance, motor or sensory deficits or dizziness. PSYCHIATRIC: No anxiety or depression. SKIN: He has no concerning lesions. PHYSICAL EXAMINATION VITAL SIGNS: Temperature 97.7, pulse 66, respiratory rate 18, blood pressure 160/87. He is 97% on room air. GENERAL: An alert, well-nourished, well-developed, in no acute distress pleasant man. HEAD: Normocephalic, atraumatic. EYES: Sclera clear. Conjunctiva without injection. Pupils are equal and round. ENT: Mucous membranes are pink and moist. NECK: Supple. Trachea is midline. CARDIOVASCULAR: Regular rate and rhythm without murmur, rub or gallop. No JVD. S1, S2. No S3. No S4. PULMONARY: Clear lungs throughout bilaterally with no crackles, wheeze or rhonchi. He is non-labored. Symmetrical chest rise. ABDOMEN: Soft, nontender, nondistended. Positive bowel tones. EXTREMITIES: Pulses +2 x4. Radials are easily palpable. There is no dependent edema. Right arm is in a sling. Normal tone x4. No obvious deformities. Extremities have equal warmth throughout. NEUROLOGIC: Cranial nerves II through XII grossly intact. Motor strength 5/5. PSYCHIATRIC: He is alert and oriented x3, has a pleasant affect. Appropriate to mood, insight and judgment. SKIN: Normal turgor. Normal texture. There is a bruised area to his right shoulder that appears to be healing. LABORATORY DATA CBC is unremarkable. Chemistry has a random glucose of 145, alkaline phosphate 235, otherwise unremarkable. Three sets of cardiac enzymes are negative. Coagulation is unremarkable. IMAGING DATA Chest x-ray read by the radiologist has no acute intrathoracic disease. 2. Compensated cardiomegaly. 3. Stable multiple right-sided rib fractures and right clavicular fracture. CT angiogram was completed with a conclusion of no evidence of a pulmonary embolism. No acute pulmonary infiltrate. EKG DATA Three EKGs show normal sinus rhythm with a left axis deviation. ASSESSMENT AND PLAN Chest pain: The patient was admitted to the chest pain center, was ruled out with three sets of EKGs and cardiac enzymes. He was seen and evaluated by Dr. Ekaterina Salter. It was discussed with him the next step would be a chemical stress test. He is agreeable to this plan of care. Further disposition to follow results of that test, and actually if the test comes back unremarkable he will be later discharged home and encouraged to follow-up with his primary care provider. Dictated by: PAT Marie PAT Marie BAB/BT /2:19 PM /4:17 PM
[2016-05-31] MEDS ORDERED: ATORVASTATIN 80 MG TAB PO SCH (21:00)
--- NOTE | 2016-06-01 15:34 | TR ---
Date Performed: 05/31/2016 Time Performed: 11:53:35 DOCTOR: Saúl Pinon DRUG LIST: CLINICAL HISTORY: CHEST PAIN REASON FOR TEST: REASON FOR ENDING: OBSERVATION: CONCLUSION: Lexiscan stress test was performed under standard four minute protocol. [place] e was injected one minute prior to ending the test. No electrocardiographic abormalities were present to suggest ischemia. Nuclear imaging and interpretation are pending. COMMENTS:
[2016-07-11] MEDS ORDERED: HYDR-3366 PO (08:23)
== END 2016-05-31 17:53 | disposition home or self-care (01) ==
LOC: NEPE 20:08 → NEDA 05-31 01:42 → NEDH 05-31 05:51 → NEPGCP 05-31 11:36
PROVIDERS: ADMIT Internal Medicine Interventional Cardiology; ATTEND Internal Medicine Interventional Cardiology
DX: R07.9 Chest pain, unspecified (principal); S22.41XD Multiple fractures of ribs, right side, subsequent encounter for fracture with routine healing; S42.001D Fracture of unspecified part of right clavicle, subsequent encounter for fracture with routine healing; M54.41 Lumbago with sciatica, right side; I25.10 Atherosclerotic heart disease of native coronary artery without angina pectoris; I11.9 Hypertensive heart disease without heart failure; I25.2 Old myocardial infarction; E78.5 Hyperlipidemia, unspecified; M06.9 Rheumatoid arthritis, unspecified; E78.00 Pure hypercholesterolemia, unspecified; M19.90 Unspecified osteoarthritis, unspecified site; R73.03 Prediabetes; F17.200 Nicotine dependence, unspecified, uncomplicated; Z86.718 Personal history of other venous thrombosis and embolism; Z95.5 Presence of coronary angioplasty implant and graft; W11.XXXD Fall on and from ladder, subsequent encounter
CPT/HCPCS: 71010; 71275; 78452; 80053; 82550; 84484; 85025; 85610; 85730; 93005; 93017; 96374; 96375; 99285; A9502; G0378; J1170; J2270; J2405; J2785; J7030; Q9967

== ENCOUNTER → 2016-07-11 | Day surgery (SDC) | payer OTHER ==
[~2016-07-11] VITALS: Ht 172.7 cm; Wt 84.9 kg
[~2016-07-11] MED LIST changes: +*HYDROmorphone PF 1 MG VIAL PERIprocedural Use ONLY ONE; +*MEPERIDINE 25 MG INJ VIAL PERIprocedural Use ONLY ONE; +*PROMETHAZINE 25 MG/ML VIAL PERIprocedural use ONLY ONE; +*morphine SULFATE 8 MG/ML PERIprocedure ONLY ONE; +ACETAMINOPHEN 1000 MG/100 ML VIAL IV ONE; +BUPIVACAINE/EPINEPHRINE 0.25% PF 10 ML VIAL ONE; +CALCIUM/VITAMIN D 250 MG/125 U TAB PO SCH; +CHLORHEXIDINE GLUCONATE 4% SOLN 120 ML BTL TOP SCH; +DEXAMETHASONE SOD PHOS 4 MG/ML VIAL ONE; -DIPH50IN2 PO; +DO NOT ADM ANY ANTICOAGULANT DRUGS XX PRN; -DOCU1CAP39 PO; +DOCUSATE SODIUM 50 MG/SENNA 8.6 MG TAB PO SCH; +FAMOTIDINE 20 MG/2 ML VIAL ONE; +GENTAMICIN SULFATE 80 MG/2 ML VIAL ONE; +HYDR-3366 PO; +HYDROmorphone HCL PF 2 MG/ML VIAL ONE; +INSULIN HUMAN REGULAR 1,000 UNITS/10 ML VIAL SQ PRN; +LACTATED RINGER'S 1000 ML IV SCH; +METOPROLOL TARTRATE 25 MG TAB PO PRN; +MIDAZOLAM HCL 2 MG/2 ML VIAL ONE; -MILKSUS PO; +MIRA33504 PO; +MORPHINE SULFATE 4 MG/ML INJ IV PUSH PRN; +MORPHINE SULFATE 8 MG/ML INJ ONE; +NEOSTIGMINE 3 MG/3 ML SYR IV ONE; +ONDANSETRON HCL 4 MG/2 ML VIAL IV PUSH ONE; +ONDANSETRON HCL 4 MG/2 ML VIAL IVP PRN; +PERC7.5T13 PO; +PROPOFOL 200 MG/20 ML AMP IV ONE; +SODIUM CHLORID 0.9% 500 ML IV SCH; +SODIUM CHLORIDE 0.9% FLUSH 5 ML FLUSH IVF PRN; +SODIUM CHLORIDE 0.9% FLUSH 5 ML FLUSH IVF SCH; -TAMO10TA6 PO; -TAMS0.4C4 PO; +TAMS5CAP PO; +VANCOMYCIN 1000 MG/NS 250 ML (for <70 kg) IV SCH; +ceFAZolin 2 GM PREMIX 50 ML IV SCH; +diphenhydrAMINE HCL 25 MG CAP PO PRN; +fentaNYL CITRATE 250 MCG/5 ML AMP ONE
[2016-07-11 06:42] VITALS: BP 124/84; PULSE 56; RESP 20; TEMP 98; O2SAT 98
--- NOTE | 2016-07-11 08:23 | PD.OP ---
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 My P.A. presence was necessary throughout this case for the manipulation and positioning of the surgical extremity. My P.A. was assisting me throughout the duration of this procedure. The skill set of a physician maintenance assistant was medically necessary to complete this procedure. During the surgical case the instructor adjunct surgical technician was working at the back table and the physician maintenance assistant was directly assisting me. Operation and Findings: Patient was seen and evaluated preoperatively. Patient was found to have a clavicle fracture. Fracture was initially treated nonoperatively because it was relatively well aligned. After 6 weeks, the fracture had minimal signs of healing and appeared to be developing a nonunion. The risks and benefits of surgical and nonsurgical options were discussed in detail and informed consent was obtained for surgery. Patient was brought to the operating room and placed on or table. IV sedation and GETA were administered by anesthesiologist. Antibiotics were given prior to incision. Operative arm and shoulder were prepped with alcohol followed by Hibiclens and draped usual sterile fashion. Timeout procedure was performed. Procedure began with a 5 inch incision over the anterior clavicle. Subcutaneous tissue was dissected with Bovie. The fracture was now visualized. Soft tissue was retracted. Fracture was cleaned with curettes. There was significant fibrous tissue within the fracture site. Curettes and rongeurs were used to debride the nonunion. Attention was now turned to reduction. Gentle traction was applied and fracture tenaculums were used to reduce the fracture. Fracture was manipulated to achieve excellent reduction. Multiplanar fluoroscopy confirmed well aligned fracture. K wires were used to hold provisional fixation. A Synthes clavicle plate was selected. Plate was provisionally held in place K wires. 3.5 cortical screws were used to compress plate to bone. Fluoroscopy confirmed appropriate plate placement and fracture reduction. Multiple screws were placed on each side of the fracture. All Screws were predrilled and premeasured for appropriate length. Care was taken to avoid injury to neurovascular structures. Final fluoroscopy revealed well aligned fracture with well-placed hardware. Wound was thoroughly irrigated. Fascia was closed with #1 Vicryl, subcutaneous tissues closed with 3 -0 Vicryl, and skin was closed with haylee. Sterile dressings were applied. Patient was placed into a sling. Patient was awakened and transferred to recovery in stable condition. Needle and sponge counts were correct. Adasm Lizama MD Jul 11, 2016 08:23
[2016-07-11] MEDS: ACETAMINOPHEN/HYDROcodone 325 MG/10 MG TAB PO PRN ×2 (11:03→15:00)
--- NOTE | 2016-07-11 14:52 | RADRPT ---
EXAM DATE/TIME: 07/11/2016 08:08 [facility] COMPARISON: CLAVICLE RIGHT, May 18, 2016, 16:50. INDICATIONS : ORIF right clavicle. MEDICAL HISTORY : None. SURGICAL HISTORY : None. ENCOUNTER: Subsequent ACUITY: 2 months PAIN SCORE: Non-responsive. LOCATION: Right clavicle. FINDINGS: Two view examination of the right clavicle demonstrates postsurgical changes following open reduction and internal fixation of a mid clavicular fracture. The fracture has been stabilized with an extrame dullary plate. There is good alignment of the fracture fragments. CONCLUSION: Satisfactory postop appearance of the right clavicle following ORIF. Ismael Hernandez MD on July 11, 2016 at 14:49 Board Certified Radiologist. This report was verified electronically.
[2016-07-11 16:00] VITALS: BP 144/89; PULSE 61; RESP 16; TEMP 98.7; O2SAT 96
== END | disposition home or self-care (01) ==
LOC: HSDC 05:57
PROVIDERS: ATTEND Orthopaedic Surgery Orthopaedic Trauma
DX: S42.001D Fracture of unspecified part of right clavicle, subsequent encounter for fracture with routine healing (principal); I10 Essential (primary) hypertension; W11.XXXD Fall on and from ladder, subsequent encounter
CPT/HCPCS: 00450; 23515; 73000; 76000; C1713; J0131; J0690; J1100; J1170; J1580; J2175; J2250; J2270; J2405; J2550; J2710; J3010; J3370; J7050; J7120

== ENCOUNTER 2018-02-27 15:40 | Observation (INO) ==
--- NOTE | 2018-02-27 17:00 | ED ---
HPI General Chief complaint: Extremity Problem,Nontraumatic Stated complaint: Left arm pain/Bump on left side of chest Time Seen by Provider: 02/27/18 16:32 Source: patient, RN notes reviewed and old records reviewed Mode of arrival: ambulatory History of Present Illness HPI narrative: 62yM presenting with left chest and left arm pain. The patient states that last night he noticed "lumps" in his left lower chest which are painful with palpation, not made better by anything, constant, non-radiating, and moderate intensity. He says that this morning he was at physical therapy exercising when he also began to have "pins and needles" in his left arm going down to his left 1st and 2nd digit, constant, not made better or worse by anything, and moderate intensity. He took ibuprofen for muscle pain but says that the chest and arm pain persisted. He called his PMD and was told to come to the ED for further evaluation. Denies diaphoresis, dizziness, palpitations, dyspnea, or nausea. Patient says that he has 2 cardiac stents placed in 2009 in [place]; has been admitted to our chest pain center in May 2016 and had a negative Lexiscan and stress test at that time. He does not have a local programs director. Related Data Home Medications Medication Instructions Recorded Confirmed atorvastatin 80 mg PO DAILY 02/27/18 02/27/18 cholecalciferol (vitamin D3) 2,000 unit PO DAILY 02/27/18 02/27/18 [Vitamin D3] clopidogrel 75 mg PO DAILY 02/27/18 02/27/18 enalapril maleate 5 mg PO DAILY 02/27/18 02/27/18 finasteride 5 mg PO DAILY 02/27/18 02/27/18 glucosam castaneda [id number]-Mn 1 tab PO DAILY 02/27/18 02/27/18 ibuprofen 800 mg PO TID 02/27/18 02/27/18 isosorbide mononitrate 30 mg PO DAILY 02/27/18 02/27/18 metoprolol tartrate 25 mg PO BID 02/27/18 02/27/18 naproxen 500 mg PO BID 02/27/18 02/27/18 omega-3 acid ethyl esters 2 cap PO BID 02/27/18 02/27/18 tamsulosin 0.4 mg PO BID 02/27/18 02/27/18 turmeric-turmeric root extract 1 tab PO DAILY 02/27/18 02/27/18 zolpidem 1 tab PO HS PRN 02/27/18 02/27/18 Allergies Allergy/AdvReac Type Severity Reaction Status Date / Time No Known Allergies Allergy Unknown NONE Uncoded 02/27/18 15:48 Review of Systems ROS: all other systems reviewed are negative Constitutional Denies fever(s) Comments: Denies trauma Cardiovascular Reports chest pain Respiratory Denies cough and Denies dyspnea Gastrointestinal Denies nausea Genitourinary Denies dysuria Musculoskeletal Reports radiating pain into limb Integumentary/Breasts Denies rash Neurologic Denies confusion PMFSH History History Provided By: Patient Medical History Medical History Cataract (Acute) Heart attack (Acute) Right shoulder injury (Acute) Surgical History Surgical History H/O heart artery stent (Acute) Social History Social History Substance History: No History of Abuse Second Hand Smoke Exposure: No Smoking Status: Never smoker How Often Do You Have a Drink Containing Alcohol: Never Recent Travel in [facility] within the Last 8 Weeks: No Recent Out of Country Travel within the Last 8 Weeks: No Immunization History Tetanus Immunization: >5 Years Exam Const General: healthy appearing and no acute distress [facility] Head: normocephalic and atraumatic Face and sinus: normal facial exam Eyes General: appearance normal, both eyes and all related structures Pupils: PERRL Neck Other: No midline C spine tenderness, normal ROM, mild tenderness/spasm of left trapezius muscle Chest Chest: normal inspection of the chest Other: No palpable masses or "lumps" noted on chest, patient refers to rib borders under left areola, no crepitus or bony instability, no ecchymoses or abrasions, no skin discoloration Resp Effort & Inspection: normal respiratory effort Auscultation: no rhonchi and no wheezes Cardio Rate: regular rate Rhythm: regular rhythm GI Inspection: non-distended Palpation: soft and nontender Skin General: no rashes or lesions noted Neuro General: alert, awake, oriented x3 and no focal motor deficits Extrem Other: Motor strength 5/5 and sensation intact to bilateral upper extremities Pattern Keeper strength equal bilaterally No lower extremity edema Psych Affect: normal affect Course Initial Documented Vital Signs Temperature 98.8 F 02/27/18 15:48 Pulse Rate 56 L 02/27/18 15:48 Respiratory Rate 16 02/27/18 15:48 Blood Pressure 152/74 H 02/27/18 15:48 Pulse Oximetry 97 02/27/18 15:48 Last Documented Vital Signs Temperature 98.8 F 02/27/18 15:48 Pulse Rate 52 L 02/27/18 17:21 Respiratory Rate 18 02/27/18 17:21 Blood Pressure 144/84 H 02/27/18 17:21 Pulse Oximetry 97 02/27/18 17:21 Clinical Decision Support HEART Score Questions History: Moderately suspicious EKG: Non-specific repolarization disturbance Age: 45-64 years Risk Factors: 3 or more Risk Factors or Hx of Atherosclerotic Disease Initial Troponin: Normal Limit Heart Score HEART Score: 5 Medical Decision Making MDM Narrative Medical decision making narrative: Assessment: 62yM presenting with left chest and arm pain Plan: EKG and monitor Labs CXR ASA Addendum: Patient's workup shows minimally elevated CK, negative 1st troponin, labs otherwise unremarkable. CT cervical spine shows no acute findings, + age- related degenerative changes. Patient has a HEART score of 5 (moderate risk of adverse cardiac event); he does not have a local programs director with whom he can follow up as an outpatient. He will need serial enzyme measurements and chest pain observation. The patient understands and agrees with plan. Case discussed with Dr. Yo of [facility]. Medical Screen Exam Complete: Yes Emergency Medical Condition: Yes Differential Diagnosis Differential Diagnosis: Differential diagnosis includes, but is not limited to: ACS, arrhythmia, cervical radiculopathy, rib fracture, musculoskeletal pain Medical Records Medical records reviewed: Yes I reviewed the patient's medical records. Lab Data Lab results reviewed: Yes I reviewed the patient's lab results. Result diagrams: 02/27/18 17:23 02/27/18 17:23 Lab Results 02/27/18 02/27/18 02/27/18 Range/Units 17:23 17:23 17:23 CBC w Diff Auto diff final WBC 6.0 (4.0-11.0) th/mm3 RBC 5.04 (4.50-5.90) mil/mm3 Hgb 13.6 (13.0-17.0) gm/dL Hct 39.5 (39.0-51.0) % MCV 78.4 L (80.0-100.0) fL MCH 27.0 (27.0-34.0) pg MCHC 34.4 (32.0-36.0) % RDW 15.0 (11.6-17.2) % Plt Count 192 (150-450) th/mm3 MPV 8.5 (7.0-11.0) fL Neut % (Auto) 51.7 (16.0-70.0) % Lymph % (Auto) 32.6 (9.0-44.0) % Ocean % (Auto) 7.8 (0.0-8.0) % Eos % (Auto) 7.0 H (0.0-4.0) % Baso % (Auto) 0.9 (0.0-2.0) % Neut # (Auto) 3.0 (1.8-7.7) th/mm3 Lymph # (Auto) 2.0 (1.0-4.8) th/mm3 Ocean # (Auto) 0.5 (0.0-0.9) th/mm3 Eos # (Auto) 0.4 (0.0-0.4) th/mm3 Baso # (Auto) 0.1 (0.0-0.2) th/mm3 WBC Differential . Differential Comment . PT 9.8 (9.8-11.6) sec INR 1.0 Ratio Sodium 143 (136-145) meq/L Potassium 4.0 (3.5-5.1) meq/L Chloride 109 H (98-107) meq/L Carbon Dioxide 26.3 (21.0-32.0) meq/L Anion Gap 8 (5-15) meq/L BUN 18 (7-18) mg/dL Creatinine 1.10 (0.60-1.30) mg/dL Estimated GFR 68 L (>89) mL/min Random Glucose 108 H (74-106) mg/dL Calcium 8.4 L (8.5-10.1) mg/dL Magnesium (1.5-2.5) mg/dL Total Bilirubin 0.4 (0.2-1.0) mg/dL AST 18 (15-37) U/L ALT 26 (12-78) U/L Alkaline Phosphatase 78 (45-117) U/L Total Creatine Kinase (39-308) U/L CK-MB (CK-2) (0.5-3.6) ng/mL CK-MB (CK-2) % (0.0-4.0) % Troponin I Less than 0.02 L (0.02-0.05) ng/mL Total Protein 6.6 (6.4-8.2) g/dL Albumin 3.6 (3.4-5.0) g/dL 02/27/18 Range/Units 17:23 CBC w Diff WBC (4.0-11.0) th/mm3 RBC (4.50-5.90) mil/mm3 Hgb (13.0-17.0) gm/dL Hct (39.0-51.0) % MCV (80.0-100.0) fL MCH (27.0-34.0) pg MCHC (32.0-36.0) % RDW (11.6-17.2) % Plt Count (150-450) th/mm3 MPV (7.0-11.0) fL Neut % (Auto) (16.0-70.0) % Lymph % (Auto) (9.0-44.0) % Ocean % (Auto) (0.0-8.0) % Eos % (Auto) (0.0-4.0) % Baso % (Auto) (0.0-2.0) % Neut # (Auto) (1.8-7.7) th/mm3 Lymph # (Auto) (1.0-4.8) th/mm3 Ocean # (Auto) (0.0-0.9) th/mm3 Eos # (Auto) (0.0-0.4) th/mm3 Baso # (Auto) (0.0-0.2) th/mm3 WBC Differential Differential Comment PT (9.8-11.6) sec INR Ratio Sodium (136-145) meq/L Potassium (3.5-5.1) meq/L Chloride (98-107) meq/L Carbon Dioxide (21.0-32.0) meq/L Anion Gap (5-15) meq/L BUN (7-18) mg/dL Creatinine (0.60-1.30) mg/dL Estimated GFR (>89) mL/min Random Glucose (74-106) mg/dL Calcium (8.5-10.1) mg/dL Magnesium 2.2 (1.5-2.5) mg/dL Total Bilirubin (0.2-1.0) mg/dL AST (15-37) U/L ALT (12-78) U/L Alkaline Phosphatase (45-117) U/L Total Creatine Kinase 361 H (39-308) U/L CK-MB (CK-2) 5.7 H (0.5-3.6) ng/mL CK-MB (CK-2) % 1.6 (0.0-4.0) % Troponin I (0.02-0.05) ng/mL Total Protein (6.4-8.2) g/dL Albumin (3.4-5.0) g/dL Imaging Data Radiologist's impression: Chest X-Ray 02/27/18 16:52 CONCLUSION: Mild cardiomegaly. No acute cardiopulmonary disease. Cervical Spine CT 02/27/18 17:10 CONCLUSION: 1. No acute abnormality. 2. Multilevel degenerative changes as detailed above. ECG Data Attestation: I personally reviewed and interpreted this ECG as follows: Interpretation: Rate: 50 BPM Rhythm: Sinus [place]: Left Intervals: IVCD, QTc 438 ms Q waves: III, aVF T waves: Flattened in III ST segments: No elevations or depressions Impression: Sinus bradycardia, no significant changes as compared to EKG from . Discharge Plan Discharge Disposition Patient Disposition: 30 Still Patient Discharge Condition Condition: Stable Discharge Details Diagnosis: Chest pain, Elevated CK-MB level Physicians Team ED Provider: Emelyn Peterson Primary Care Provider: Henri Ortega Rxs /Orders / Referrals /Forms Prescriptions: No Action atorvastatin 80 mg Tablet 80 mg PO DAILY RF: 0 enalapril maleate 5 mg Tablet 5 mg PO DAILY RF: 0 ibuprofen 800 mg Tablet 800 mg PO TID RF: 0 isosorbide mononitrate 30 mg Tablet Extended Release 24 Hr 30 mg PO DAILY RF: 0 clopidogrel 75 mg Tablet 75 mg PO DAILY RF: 0 tamsulosin 0.4 mg Capsule 0.4 mg PO BID RF: 0 zolpidem 10 mg Tablet 1 tab PO HS PRN (Reason: Insomnia) RF: 0 finasteride 5 mg Tablet 5 mg PO DAILY RF: 0 naproxen 500 mg Tablet 500 mg PO BID RF: 0 metoprolol tartrate 25 mg Tablet 25 mg PO BID RF: 0 omega-3 acid ethyl esters 1 gram Capsule 2 cap PO BID RF: 0 cholecalciferol (vitamin D3) [Vitamin D3] 2,000 unit Capsule 2,000 unit PO DAILY RF: 0 glucosam castaneda [id number]-Mn [id number] mg Capsule 1 tab PO DAILY RF: 0 turmeric-turmeric root extract 450-50 mg Capsule 1 tab PO DAILY RF: 0 Status ED Status: Admitted Observation Patient
[2018-02-27 17:33] LABS: Baso # (Auto) 0.1 th/mm3 (0.0-0.2); Baso % (Auto) 0.9 % (0.0-2.0); Eos # (Auto) 0.4 th/mm3 (0.0-0.4); Hematocrit 39.5 % (39.0-51.0); Hemoglobin 13.6 gm/dL (13.0-17.0); Lymph % (Auto) 32.6 % (9.0-44.0); Mean Corpuscular HGB Conc 34.4 % (32.0-36.0); Mean Corpuscular Volume 78.4 fL (80.0-100.0); Mean Platelet Volume 8.5 fL (7.0-11.0); Mono # (Auto) 0.5 th/mm3 (0.0-0.9); Mono % (Auto) 7.8 % (0.0-8.0); Neut % (Auto) 51.7 % (16.0-70.0); Platelet Count 192 th/mm3 (150-450); Red Blood Count 5.04 mil/mm3 (4.50-5.90)
[2018-02-27 17:41] LABS: Chloride 109 meq/L (98-107); Sodium 143 meq/L (136-145)
[2018-02-27 17:43] LABS: Prothrombin Time 9.8 sec (9.8-11.6)
[2018-02-27 17:45] LABS: Magnesium 2.2 mg/dL (1.5-2.5)
[2018-02-27 17:46] LABS: Albumin 3.6 g/dL (3.4-5.0); Anion Gap 8 meq/L (5-15); Blood Urea Nitrogen 18 mg/dL (7-18); Calcium 8.4 mg/dL (8.5-10.1); Carbon Dioxide 26.3 meq/L (21.0-32.0); Glucose,Random 108 mg/dL (74-106)
[2018-02-27 17:49] LABS: Alanine Aminotransferase 26 U/L (12-78); Aspartate Aminotransferase 18 U/L (15-37); Glomerular Filtration Rate 68 mL/min (>89)
[2018-02-27 17:51] LABS: Total Protein 6.6 g/dL (6.4-8.2)
[2018-02-27 17:52] LABS: Alkaline Phosphatase 78 U/L (45-117)
--- NOTE | 2018-02-27 17:53 | XR ---
EXAM DATE: 02/27/2018 4:52 PM EDT AGE/SEX: 62 years / Male INDICATIONS: Chest pain and left arm pain/tingling. Patient states there is palpable bump on left si de of chest under breast. CLINICAL DATA: This is the patient's initial encounter. Patient reports that signs and symptoms have been present for 2 days and indicates a pain score of 6/10. MEDICAL/SURGICAL HISTORY: None. . 2 cardiac stents. Right Clavicle ORIF. COMPARISON: No prior exams available for comparison. FINDINGS: A single AP view of the chest demonstrates the lungs to be symmetrically aerated without evidence of mass, infiltrate or effusion. The cardiomediastinal contours are unremarkable. Mild cardiomegaly. Ol d right-sided rib fractures. Plate and screws along the right clavicle. CONCLUSION: Mild cardiomegaly. No acute cardiopulmonary disease. Electronically signed by: Ángel Bush MD 02/27/2018 5:51 PM EDT
[2018-02-27 18:15] LABS: CKMB Percent 1.6 % (0.0-4.0); Creatine Kinase MB 5.7 ng/mL (0.5-3.6)
--- NOTE | 2018-02-27 19:10 | CT ---
EXAM DATE: 02/27/2018 6:09 PM EDT AGE/SEX: 62 years / Male INDICATIONS: Radiculopathy. Left arm paresthesias. CLINICAL DATA: This is the patient's initial encounter. Patient reports that signs and symptoms have been present for 2 days and indicates a pain score of 4/10. MEDICAL/SURGICAL HISTORY: Cardiovascular disease. Myocardial infarction. Coronary artery stent . Orthopedic surgery. RADIATION DOSE: 26.64 CTDI (mGy) [place] [facility] [place] 05/18/2016. . TECHNIQUE: Contiguous axial images were obtained using helical multirow detector technique. The vol umetric data was post-processed with multiplanar reconstruction in oblique axial, sagittal, and coron al planes. Using automated exposure control and adjustment of the mA and/or kV according to patient s ize, radiation dose was kept as low as reasonably achievable to obtain optimal diagnostic quality lane ges. DICOM format image data is available electronically for review and comparison. FINDINGS: Vertebrae: Normal vertebral body height. Alignment: Normal. No subluxation. C2-3: Mild broad-based disc bulge. No central canal stenosis or abutment of the cord. Neural foramin a are patent bilaterally.. C3-4: Mild central bulge just touches the ventral portion of the cord without central canal stenosis . Bony uncovertebral hypertrophy without neural foraminal narrowing. C4-5: Mild central bulge just touches the ventral portion of the cord. No central canal stenosis. [place] uncovertebral hypertrophy generates mild left neural foraminal narrowing. The right neural foramen is patent.. C5-6: Mild central bulge just touches the ventral portion of the cord without central canal stenosis . Bony uncovertebral hypertrophy without neural foraminal narrowing. C6-7: The bony spinal canal is normal in size. No evidence of disc bulge or herniation. The neural foramina are bilaterally patent. C7-T1: The bony spinal canal is normal in size. No evidence of disc bulge or herniation. The neura l foramina are bilaterally patent. CONCLUSION: 1. No acute abnormality. 2. Multilevel degenerative changes as detailed above. Electronically signed by: Bahman Sheehan MD 02/27/2018 7:08 PM EDT
[2018-02-27] MEDS ORDERED: Morphine Sulfate Inj 2 MG/ML Vial IV.PUSH ONE (19:47)
[2018-02-27] MEDS ORDERED: Acetaminophen 500 MG Tablet PO PRN ×2 (19:48→20:13)
[2018-02-27] MEDS ORDERED: Morphine Inj 4 MG/ML Vial IV.PUSH PRN (20:13)
[2018-02-27 20:36] LABS: Creatine Kinase 311 U/L (39-308)
[2018-02-27 20:48] LABS: CKMB Percent 1.6 % (0.0-4.0)
[2018-02-28] MEDS: Heparin - SQ 10,000 UNITS/ML Vial SQ SCH ×2 (00:02→05:31)
[2018-02-28] MEDS: Metoprolol Tartrate 25 MG Tablet PO SCH ×2 (00:04→08:04)
[2018-02-28 00:43] LABS: Creatine Kinase 282 U/L (39-308)
--- NOTE | 2018-02-28 06:51 | ECG ---
Date Performed: 02/27/2018 Time Performed: 17:05:35 PTAGE: 62 years EKG: SINUS BRADYCARDIA MARKED LEFT AXIS DEVIATION MODERATE INTRAVENTRICULAR CONDUCTION DELAY ABN ORMAL ECG Compared to prior electrocardiogram, rate has decreased . PREVIOUS TRACING : 05/31/2016 04.27 DOCTOR: Shoaib Cruz Interpretating Date/Time 02/28/2018 06:51:02
[2018-02-28] MEDS ORDERED: Isosorbide Mononitrate 30 MG ER 24HR Tablet (Imdur) PO SCH (07:00)
[2018-02-28] MEDS ORDERED: Finasteride 5 MG Tablet PO SCH (09:00)
[2018-02-28] MEDS ORDERED: Aspirin 325 MG Tablet PO SCH ×2 (09:00)
--- NOTE | 2018-02-28 10:25 | P.HPIM ---
History of Present Illness Primary Care Physician: Henri Ortega MD Chief Complaint: pain to the left arm History of Present Illness: patient is a 62 y/o male with history of CAD, hypertension and dyslipidemia who presented to ER with left arm pain and chest pain. he says that he started to have some pain and tingling to the left thumb and second finger last night which was shooting to his left shoulder. he had some left lower chest pain at the same time. he described it as ' pain and tightness'. he denies any associated nausea,emesis,sob or diaphoresis. 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 Review of Systems All other systems reviewed negative except as stated in [facility] - History History Provided By: Patient - Medical History Medical History: Medical History (Last Reviewed 02/28/18 @ 10:22 by Evonne Molina MD) Cataract Heart attack Right shoulder injury - Surgical History Surgical History: Surgical History (Last Reviewed 02/28/18 @ 10:22 by Evonne Molina MD) H/O heart artery stent - Family History Family History: Family History (Last Updated 02/28/18 @ 10:22 by Evonne Molina MD) Other Family history of hypertension - Tobacco History Second Hand Smoke Exposure: No Tobacco Use In Past 30 Days: No Smoking Status: Never smoker - Alcohol History How Often Do You Have a Drink Containing Alcohol: Never - Substance Use History Substance History: No History of Abuse - Travel History Recent Travel in the [place] Within the Last 8 Weeks: Yes Recent Travel Out of the Country Within the Last 8 Weeks: No - Immunization History Tetanus Immunization: >5 Years Medications and Allergies Active Medications: Active Medications Acetaminophen (Tylenol) 500 mg PO Q4H PRN PRN Reason: HEADACHE Last Admin: 02/28/18 00:10 Dose: 500 mg Aspirin (Aspirin) 325 mg PO DAILY [facility] Last Admin: 02/28/18 08:05 Dose: 325 mg Atorvastatin Calcium (Lipitor) 80 mg PO DAILY [facility] Last Admin: 02/28/18 08:04 Dose: 80 mg Clopidogrel Bisulfate (Plavix) 75 mg PO DAILY [facility] Last Admin: 02/28/18 08:04 Dose: 75 mg Enalapril Maleate (Vasotec) 5 mg PO DAILY [facility] Last Admin: 02/28/18 08:17 Dose: 5 mg Finasteride (Proscar) 5 mg PO DAILY [facility] Last Admin: 02/28/18 08:04 Dose: 5 mg Heparin Sodium (Porcine) (Heparin Inj) 5,000 units SQ Q8H [facility] Last Admin: 02/28/18 05:31 Dose: 5,000 units Isosorbide Mononitrate (Imdur) 30 mg PO DAILY@0700 [facility] Last Admin: 02/28/18 06:21 Dose: 30 mg Metoprolol Tartrate (Lopressor) 25 mg PO BID [facility] Last Admin: 02/28/18 08:04 Dose: 25 mg Morphine Sulfate (Morphine Inj) 2 mg IV.PUSH Q4H PRN PRN Reason: PAIN SCALE 8 TO 10 Nitroglycerin (Nitrostat Sl) 0.4 mg SL Q5M PRN PRN Reason: CHEST PAIN Ondansetron HCl (Zofran Inj) 4 mg IV.PUSH Q6H PRN PRN Reason: NAUSEA Sodium Chloride (Ns Flush) 2 ml IV.FLUSH BID [facility] Last Admin: 02/28/18 08:07 Dose: 2 ml Sodium Chloride (Ns Flush) 2 ml IV.FLUSH PRN PRN PRN Reason: FLUSH AFTER USING IV ACCESS Tamsulosin HCl (Flomax) 0.4 mg PO BID [facility] Last Admin: 02/28/18 08:04 Dose: 0.4 mg Allergies Allergy/AdvReac Type Severity Reaction Status Date / Time No Known Allergies Allergy Unknown NONE Uncoded 02/27/18 15:48 Home Medications Medication Instructions Recorded Confirmed Type atorvastatin 80 mg PO DAILY 02/27/18 02/27/18 History cholecalciferol (vitamin D3) 2,000 unit PO DAILY 02/27/18 02/27/18 History [Vitamin D3] clopidogrel 75 mg PO DAILY 02/27/18 02/27/18 History enalapril maleate 5 mg PO DAILY 02/27/18 02/27/18 History finasteride 5 mg PO DAILY 02/27/18 02/27/18 History glucosam castaneda [id number]-[id number]-C-Mn 1 tab PO DAILY 02/27/18 02/27/18 History ibuprofen 800 mg PO TID 02/27/18 02/27/18 History isosorbide mononitrate 30 mg PO DAILY 02/27/18 02/27/18 History metoprolol tartrate 25 mg PO BID 02/27/18 02/27/18 History naproxen 500 mg PO BID 02/27/18 02/27/18 History omega-3 acid ethyl esters 2 cap PO BID 02/27/18 02/27/18 History tamsulosin 0.4 mg PO BID 02/27/18 02/27/18 History turmeric-turmeric root extract 1 tab PO DAILY 02/27/18 02/27/18 History zolpidem 1 tab PO HS PRN 02/27/18 02/27/18 History Exam Vital signs: Vital Signs 02/27/18 15:48 02/27/18 17:21 02/27/18 20:30 Temperature 98.8 F 98.6 F Pulse Rate 56 L 52 L 51 L Respiratory Rate 16 18 18 Blood Pressure 152/74 H 144/84 H 148/76 H Pulse Oximetry 97 97 98 02/27/18 21:55 02/28/18 00:00 02/28/18 01:18 Temperature 96.4 F L 97.4 F L Pulse Rate 48 L 53 L 53 L Respiratory Rate 18 18 Blood Pressure 142/84 H 130/75 Pulse Oximetry 96 96 02/28/18 03:16 02/28/18 04:00 02/28/18 04:06 Temperature 96.6 F L Pulse Rate 74 51 L Respiratory Rate 18 18 Blood Pressure 121/73 Pulse Oximetry 96 02/28/18 08:00 Temperature 97.5 F L Pulse Rate 46 L Respiratory Rate 18 Blood Pressure 116/69 Pulse Oximetry 96 Intake & Output 02/27/18 02/28/18 02/28/18 18:59 06:59 18:59 Weight 90 kg 89.5 kg Other: # Voids 2 Date of Last Bowel Movement 02/27/18 Weight On Admission 89.5 kg - Constitutional no acute distress - Routine HEENT Exam Eye: Present: PERRL - Routine Neck Exam Present: supple - Routine Chest/Breast/Axilla Exam Chest wall: Present: tenderness (left sided chest wall tenderness.) - Routine Respiratory Exam Present: CTA bilaterally - Routine Cardiovascular Exam Present: RRR - Routine Abdominal Exam Present: soft - Routine Extremities Exam Comments: no pedal edema. - Routine Neurological Exam Present: alert, oriented X3 Results - Labs CBC & Chem 7: 02/27/18 17:23 02/27/18 17:23 Labs: Short CBC 02/27/18 Range/Units 17:23 WBC 6.0 (4.0-11.0) th/mm3 Hgb 13.6 (13.0-17.0) gm/dL Hct 39.5 (39.0-51.0) % Plt Count 192 (150-450) th/mm3 BMP 02/27/18 17:23 Sodium 143 Potassium 4.0 Chloride 109 H Carbon Dioxide 26.3 BUN 18 Creatinine 1.10 Calcium 8.4 L Cardiac Enzymes 02/27/18 02/27/18 02/27/18 Range/Units 17:23 17:23 20:09 Total Creatine Kinase 361 H 311 H (39-308) U/L CK-MB (CK-2) 5.7 H 5.0 H (0.5-3.6) ng/mL Troponin I Less than 0.02 L Less than 0.02 L (0.02-0.05) ng/mL 02/28/18 Range/Units 00:00 Total Creatine Kinase 282 (39-308) U/L CK-MB (CK-2) (0.5-3.6) ng/mL Troponin I Less than 0.02 L (0.02-0.05) ng/mL Liver Function 02/27/18 Range/Units 17:23 Total Bilirubin 0.4 (0.2-1.0) mg/dL AST 18 (15-37) U/L ALT 26 (12-78) U/L Alkaline Phosphatase 78 (45-117) U/L Albumin 3.6 (3.4-5.0) g/dL - Imaging Impressions Chest X-Ray 02/27/18 16:52 CONCLUSION: Mild cardiomegaly. No acute cardiopulmonary disease. Cervical Spine CT 02/27/18 17:10 CONCLUSION: 1. No acute abnormality. 2. Multilevel degenerative changes as detailed above. Caprini VTE Risk Assessment Caprini VTE Risk Assessment: Moderate/High Risk (score >= 2) Caprini Risk Assessment Model: Point Value = 1 Point Value = 2 Point Value = 3 Point Value = 5 Age 41-60 Minor surgery BMI > 25 kg/m2 Swollen legs Varicose veins or History of unexplained or recurrent spontaneous Oral contraceptives or hormone replacement Sepsis (< 1 month) Serious lung disease, including pneumonia (< 1 month) Abnormal pulmonary function Acute myocardial infarction Congestive heart failure (< 1 month) History of inflammatory bowel disease Medical patient at bed rest Age 61-74 Arthroscopic surgery Major open surgery (> 45 min) Laparoscopic surgery (> 45 min) Malignancy Confined to bed (> 72 hours) Immobilizing plaster cast Central venous access Age >= 75 History of VTE Family history of VTE Factor V Leiden Prothrombin [id number] Lupus anticoagulant Anticardiolipin antibodies Elevated serum homocysteine Heparin-induced thrombocytopenia Other congenital or acquired thrombophilia Stroke (< 1 month) Elective arthroplasty Hip, pelvis, or leg fracture Acute spinal cord injury (< 1 month) Prophylaxis Regimen: Total Risk Factor Score Risk Level Prophylaxis Regimen 0-1 Low Early ambulation 2 Moderate Order ONE of the following: *Sequential Compression Device (SCD) *Heparin 5000 units SQ BID 3-4 Higher Order ONE of the following medications: *Heparin 5000 units SQ TID *Enoxaparin/Lovenox 40 mg SQ daily (WT < 150 kg, CrCl > 30 mL/min) *Enoxaparin/Lovenox 30 mg SQ daily (WT < 150 kg, CrCl > 10-29 mL/min) *Enoxaparin/Lovenox 30 mg SQ BID (WT < 150 kg, CrCl > 30 mL/min) AND/OR *Sequential Compression Device (SCD) 5 or more Highest Order ONE of the following medications: *Heparin 5000 units SQ TID (Preferred with Epidurals) *Enoxaparin/Lovenox 40 mg SQ daily (WT < 150 kg, CrCl > 30 mL/min) *Enoxaparin/Lovenox 30 mg SQ daily (WT < 150 kg, CrCl > 10-29 mL/min) *Enoxaparin/Lovenox 30 mg SQ BID (WT < 150 kg, CrCl > 30 mL/min) AND *Sequential Compression Device (SCD) Assessment and Plan - Plan A/P - chest pain with history of CAD/ stent placement negative troponin- will proceed with stress test. continue aspirin, plavix, BB, imdur and statin. -hypertension/dyslipidemia; resumed home meds. Discussed Condition With: the patient and . Discharge Planning: home- pending stress test. H&P: Quality - VTE Deep Vein Thrombosis/Pulmonary Embolism Present on Admission: No
[2018-02-28] MEDS ORDERED: Regadenoson Inj 0.4 MG/5 ML Syringe IV.PUSH ONE (11:41)
--- NOTE | 2018-02-28 13:04 | NM ---
EXAM DATE: 02/28/2018 11:09 AM EDT AGE/SEX: 62 years / Male INDICATIONS:Angina. Myocardial infarction Chest pain. CLINICAL DATA: This is the patient's initial encounter. Patient reports that signs and symptoms have been present for 1 day and indicates a pain score of 3/10. MEDICAL/SURGICAL HISTORY: Hypertension. Cardiovascular disease. Coronary artery stent. COMPARISON: [facility], MYOCARDIAL PERF PHARM SPECT, 05/31/2016. . DOSE: 8.1 mCi Tc 99m Myoview at rest 26.3 mCi [id number] at rest 0.4 mg Lexiscan STRESS SYMPTOMS: Short of breath. EJECTION FRACTION: 69 % TECHNIQUE: The patient underwent pharmacologic stress with infusion of prescribed dose. Continuous ECG tracing was monitored during stress. Gated SPECT imaging was performed after stress and conventi onal SPECT imaging was performed at rest. The examination was performed on a SPECT/CT scanner, both attenuation and non-corrected datasets were reviewed. FINDINGS: Distribution: The maximum perfused segment at stress is in the septal wall. Perfusion Study: The pattern of perfusion at stress is within normal limits. Gated Study: There are intact wall motion and wall thickening without hypokinetic or dyskinetic segm ents. The ejection fraction is calculated at 69%. RISK CATEGORY: Low (<1% Annual Motality Rate) No significant change compared to the prior report. CONCLUSION: 1. Unremarkable myocardial perfusion examination. Electronically signed by: Ulises Suarez MD 02/28/2018 1:02 PM EDT
--- NOTE | 2018-03-01 08:09 | TR ---
Date Performed: 02/28/2018 Time Performed: 12:13:10 DOCTOR: Saúl Pnion DRUG LIST: CLINICAL HISTORY: REASON FOR TEST: REASON FOR ENDING: OBSERVATION: CONCLUSION: COMMENTS: Lexiscan stress test was performed under standard four minute protocol. Radionuclide was injected one minute prior to ending the test. No electrocardiographic abormalities were present t o suggest ischemia. Nuclear imaging and interpretation are pending.
== END 2018-02-28 14:39 | disposition home or self-care (01) ==
LOC: PHEFT 15:40 → PHEDA 15:40 → PH3 21:54
PROVIDERS: ADMIT Internal Medicine; ATTEND Internal Medicine
DX: I25.10 Atherosclerotic heart disease of native coronary artery without angina pectoris; Z79.02 Long term (current) use of antithrombotics/antiplatelets; R07.89 Other chest pain; I25.2 Old myocardial infarction; R94.31 Abnormal electrocardiogram [ECG] [EKG]; I10 Essential (primary) hypertension; Z95.5 Presence of coronary angioplasty implant and graft; E78.5 Hyperlipidemia, unspecified; Z82.49 Family history of ischemic heart disease and other diseases of the circulatory system